=== PATIENT | female | born 1945 | race Caucasian/White ===

== ENCOUNTER 2016-04-19 20:22 | Emergency (ER) | payer MEDICAID ==
[~2016-04-19] VITALS: Ht 144.8 cm; Wt 55.5 kg
[~2016-04-19 20:22] MED LIST: ALBU8.5H3 INH; ASPI81TA50 PO; AZIT250T94 PO; BECL8.7A5 INH; CALC1TAB98 PO; CLON-379 PO; CLON0.2T5 PO; DILT240C80 PO; GLIP5TAB13 PO; HYD25 PO; IBUP800T25 PO; KETO10DR5; LOSA100T7 PO; MTF1000T PO; SITA50TA2 PO
[2016-04-19 21:37] VITALS: Ht 144.8 cm; Wt 55.5 kg
--- NOTE | 2016-04-19 22:59 | ERD ---
ER Documentation Chief Complaint Date/Time DATE: 04/19/16 TIME: 22:37 Chief Complaint Right great toe swelling. Ingrown toe HPI 71-year-old female presents with chief complaint of bilateral feet burning x weeks. In addition she complains of pain over her right big toe. States that she 's had an ingrown toenail in the past and was last removed 2 years ago. She denies any discharge, bleeding, fever, loss of sensation, and loss of range of motion. Patient states that she does have a history of type 2 diabetes mellitus , and is insulin-dependent. She takes her diabetes medications regularly and believes that her blood pressure is well-controlled. She denies any trauma or radiation of pain up her leg or back. ROS All systems reviewed and are negative except as per history of present illness. Medications Home Meds Active Scripts Albuterol Sulfate* (Proair HFA*) 8.5 Gm Hfa.aer.ad, 2 PUFF INH Q4, #1 INHALER Prov:CARLOS EDUARDO CLAYTON PA-C 04/30/15 Azithromycin* (Zithromax*) 250 Mg Tablet, 250 MG PO .ZPACK DIRECTED, #6 TAB TAKE 500 MG (2 TABS) THE FIRST DAY THEN 250 MG (1 TAB) DAYS 2-5 Prov:CARLOS EDUARDO CLAYTON PA-C 04/30/15 Reported Medications Diltiazem Hcl* (Tiazac) 240 Mg Capsule.sa, 240 MG PO DAILY, CAP 04/21/14 Beclomethasone Dip* (Qvar 80*) 7.3 Gm Inha, 2 PUFF INH BID, INH 04/21/14 Albuterol Sulfate* (Proair HFA*) 8.5 Gm Hfa.aer.ad, 2 PUFF INH EVERY 4-6 HOURS Y for WHEEZING AND SOB, INH 04/21/14 Metformin* (Glucophage*) 1,000 Mg Tablet, 1000 MG PO BID, TAB 04/21/14 Losartan Potassium* (Losartan Potassium*) 100 Mg Tablet, 100 MG PO DAILY, TAB 04/21/14 Sitagliptin* (Januvia*) 50 Mg Tablet, 50 MG PO DAILY, TAB 04/21/14 Ibuprofen* (Ibuprofen*) 800 Mg Tablet, 800 MG PO Q8, TAB 04/21/14 Hydrochlorothiazide* (Hydrochlorothiazide*) 25 Mg Tab, 25 MG PO DAILY, TAB 04/21/14 Glipizide* (Glipizide*) 5 Mg Tablet, 5 MG PO AC MEALS, TAB 04/21/14 Clonidine Hcl* (Clonidine Hcl*) 0.2 Mg Tablet, 0.2 MG PO BID, TAB 04/21/14 Clonidine Hcl* (Clonidine Hcl*) 0.1 Mg Tab, 0.1 MG PO WITH LUNCH, TAB 04/21/14 Calcium Carbonate-Vitamin D3 (Calcium + D 600 Tablet) 1 Tab Tablet, 1 TAB PO BID , TAB 04/21/14 Aspirin (Aspir-Low) 81 Mg Tablet.dr, 81 MG PO DAILY 04/21/14 Ketotifen Fumarate (Alaway) 10 Ml Drops, 1 DROP BID 04/21/14 Allergies Allergies: Coded Allergies: No Known Allergy (Unverified , 04/21/14) PMhx/Soc History of Surgery: Yes (CATARACTS) Anesthesia Reaction: No Hx Neurological Disorder: No Hx Respiratory Disorders: No Hx Cardiac Disorders: Yes (HTN, HYPERLIPIDEMIA) Hx Psychiatric Problems: No Hx Miscellaneous Medical Probl: Yes (DM) Hx Alcohol Use: No Hx Substance Use: No Hx Tobacco Use: No Physical Exam Vitals Vital Signs Date Time Temp Pulse Resp B/P Pulse Ox O2 Delivery O2 Flow Rate FiO2 04/19/16 21:37 98.1 76 18 166/76 97 Physical Exam GENERAL: Non-toxic. No apparent signs of distress. LUNGS: Clear to auscultation. No accessory muscle use. No wheezing, no crackles. No signs or symptoms of respiratory distress. HEART: Regular rate and rhythm. No murmurs, clicks, rubs or gallops. ABDOMEN: Soft, nontender and nondistended. Bowel sounds positive. No rebound or guarding. No gross peritoneal signs. No Hoyt or McBurney point tenderness. No gross masses. BACK: No midline tenderness, no costovertebral tenderness. EXTREMITIES: No peripheral cyanosis or edema. No obvious signs of trauma. Full range of motion. Good capillary refill. FEET: Right big toe is erythematous, warm to touch and tender. There is no area of fluctuance. Mild edema. No tracking up the foot/leg. Sensation and range of motion is intact. 2+ dorsalis pedis pulses bilaterally. Toes nails are yellow and thickened. There are several cracks and white crusting over her bilateral feet. No paronychia. No active discharge or bleeding. NEURO: The patient moves all 4 extremities with 5/5 strength. Cranial nerves are grossly intact. Normal mental status for age. Good muscle tone. SKIN: No petechiae or purpura. Good skin turgor. Procedures/MDM Patient presents of bilateral feet turning, as well as pain over the right big toe. On exam her right toe is slightly erythematous with mild edema and tender to palpation. Findings are consistent with cellulitis. In addition all of her toenails are thickened and yellow in appearance, likely due to onychomycosis. I explained to the patient that her symptoms are chronic in nature. Advised follow -up with her PCP to ensure that her blood sugars controlled it may be contributing to her exacerbation in neuropathy pain. Patient's currently not on gabapentin. In addition Onychomycosis is not well controlled with topical agents, she may need further management with oral terbinafine, however close follow-up and LFTs should be monitored while on this medication and cannot be prescribed from an ER. I suggested that she bring up these issues to her PCP. I told her that today would be addressing her localized pain over the right great toe which is likely due to cellulitis. I'll be prescribing both Keflex and Bactrim in addition I'll be giving the patient gabapentin for her neuropathy until she can get in to see her PCP. Additionally there are several areas of cracking and white excoriations of her bilateral feet which she states her pruritic, likely consistent with tinea pedis. I'll be giving the patient a prescription for Lotrimin 1%, I have advised her to keep feet dry. Avoid tight socks or shoes. There is no tracking of the cellulitis, patient is a 2 posterior cells pedis pulse, good capillary refill and I low suspicion for any neurovascular compromise. Patient is afebrile and in no acute distress. At this time I low suspicion for ulcer, abscess, necrotizing fasciitis, gangrene, and traumatic foot injury/fracture. Patient is stable for discharge and outpatient management. Advised to follow with PCP in one to 2 days. Departure Diagnosis: Primary Impression: Cellulitis, toe Additional Impressions: Tinea pedis Diabetic neuropathy Condition: Stable Samara Gutiérrez PA-C Apr 19, 2016 22:48
[2016-04-19] MEDS ORDERED: BACTDS PO (23:01)
[2016-04-19] MEDS ORDERED: GABA100C14 PO (23:01)
[2016-04-19] MEDS ORDERED: CLOT30CR24 TOP (23:01)
[2016-04-19] MEDS ORDERED: CEPH500C PO (23:01)
[2016-04-20] MEDS ORDERED: traMADol 50 MG TAB PO ONE (00:30)
== END 2016-04-20 00:13 | disposition home or self-care (01) ==
LOC: FTE 20:22
DX: L03.031 Cellulitis of right toe (principal); B35.3 Tinea pedis; E11.40 Type 2 diabetes mellitus with diabetic neuropathy, unspecified; I10 Essential (primary) hypertension; Z79.82 Long term (current) use of aspirin; Z79.84 Long term (current) use of oral hypoglycemic drugs
CPT/HCPCS: Z7502; Z7610; 99284

== ENCOUNTER 2016-06-25 15:48 | Emergency (ER) | payer MEDICAID ==
[~2016-06-25] VITALS: Ht 154.9 cm; Wt 56.6 kg
[~2016-06-25 15:48] MED LIST changes: +BACTDS PO; +CEPH500C PO; +CLOT30CR24 TOP; +GABA100C14 PO
[2016-06-25 15:53] VITALS: Ht 154.9 cm; Wt 56.6 kg
[2016-06-25] MEDS ORDERED: ONDANSETRON 4 MG INJ IV STA (16:48)
[2016-06-25] MEDS ORDERED: SOD CHLORIDE 0.9% 1,000 ML IV ONE (17:00)
[2016-06-25] MEDS ORDERED: FAMOTIDINE 20 MG TAB PO ONE (17:00)
[2016-06-25 17:22] LABS: ADD SCAN DIFF NO
[2016-06-25 17:25] LABS: BASOPHIL # 0.1 10^3/ul (0.0-0.1); BASOPHILS % 0.5 % (0.0-2.0); EOSINOPHILS # 0.1 10^3/ul (0.0-0.5); EOSINOPHILS % 0.8 % (0.0-7.0); HEMOGLOBIN 14.1 g/dl (12.0-16.0); LYMPHOCYTES # 2.6 10^3/ul (0.8-2.9); LYMPHOCYTES % 23.7 % (15.0-51.0); MEAN CORPUSCULAR HEMOGLOBIN 26.8 pg (29.0-33.0); MEAN CORPUSCULAR HGB CONC 32.8 g/dl (32.0-37.0); MEAN CORPUSCULAR VOLUME 81.6 fl (82.0-101.0); MEAN PLATELET VOLUME 10.6 fl (7.4-10.4); MONOCYTE # 0.7 10^3/ul (0.3-0.9); MONOCYTES % 6.1 % (0.0-11.0); NEUTROPHIL # 7.5 10^3/ul (1.6-7.5); NEUTROPHILS % 68.5 % (39.0-77.0); PLATELET COUNT 284 10^3/UL (140-415); RED BLOOD COUNT 5.27 10^6/ul (4.20-5.40); RED CELL DISTRIBUTION WIDTH 13.9 % (11.5-14.5)
[2016-06-25 17:28] LABS: ADD UMIC YES; URINE BILIRUBIN (Dip) NEGATIVE (NEGATIVE); URINE BLOOD (Dip) NEGATIVE (NEGATIVE); URINE COLOR LT. YELLOW (YELLOW); URINE KETONES (Dip) TRACE (NEGATIVE); URINE LEUKOCYTE ESTERASE (Dip) TRACE (NEGATIVE); URINE NITRITE (Dip) NEGATIVE (NEGATIVE); URINE TOTAL PROTEIN (Dip) TRACE (NEGATIVE); URINE UROBILINOGEN (Dip) 0.2 E.U./dL (0.1-1.0)
[2016-06-25 17:38] LABS: BACTERIA,URINE MANY; URINE RBCS 0-2 /HPF (0)
[2016-06-25 17:43] LABS: ALBUMIN 4.7 g/dl (3.3-4.9); CHLORIDE 98 mmol/L (97-110); SODIUM 139 mmol/L (135-144)
[2016-06-25 17:44] LABS: POTASSIUM 3.7 mmol/L (3.5-5.1)
[2016-06-25 17:45] LABS: CREATININE 0.53 mg/dl (0.44-1.00)
[2016-06-25 17:46] LABS: ALANINE AMINOTRANSFERASE 25 IU/L (13-69); ALKALINE PHOSPHATASE 109 IU/L (42-121); ANION GAP 19 (8-16); ASPARTATE AMINO TRANSFERASE 21 IU/L (15-46); BILIRUBIN,INDIRECT 0.2 mg/dl (0-1.1); BILIRUBIN,TOTAL 0.2 mg/dl (0.2-1.3); BLOOD UREA NITROGEN 18 mg/dl (7-20); CALCIUM 9.5 mg/dl (8.4-10.2); CARBON DIOXIDE 26 mmol/L (21-31); GLUCOSE 256 mg/dl (70-220); TOTAL PROTEIN 8.6 g/dl (6.1-8.1)
[2016-06-25 17:58] LABS: TROPONIN-I < 0.012 ng/ml (0.00-0.12)
[2016-06-25] MEDS ORDERED: DICLOFENAC SODIUM 37.5 MG/ML VIAL IV STA (18:17)
[2016-06-25] MEDS ORDERED: CEFTRIAXONE 1 GM/50 ML (PMX) 50 ML IVPB ONE ×2 (18:30→21:30)
[2016-06-25] MEDS ORDERED: DILT360C27 PO (18:59)
[2016-06-25] MEDS ORDERED: SITA100T8 PO (19:01)
[2016-06-25] MEDS ORDERED: BUS5 PO (19:01)
[2016-06-25] MEDS ORDERED: ACET500C3 PO (19:03)
--- NOTE | 2016-06-25 20:39 | RADRPT ---
PROCEDURE: CT abdomen and pelvis without contrast. CLINICAL INDICATION: Epigastric pain TECHNIQUE: CT scan of the abdomen and pelvis without contrast was performed on a multislice CT [facility] utilizing axial imaging from the lung bases through the pubis symphysis. The patient was scann ed without intravenous contrast. Sagittal and coronal reformatted images were made. The CTDIvol is 7.57 mGy and the DLP is 391.74 mGycm. One of the following 3 dose reduction techniques were used during this CT examination: automated exp osure control; adjustment of the mA and /or kV according to patient size; or use of iterative recons truciton technique. COMPARISON: 04/21/2014 CT abdomen and pelvis FINDINGS: The lung bases are clear. The visualized heart size is remarkable for mild cardiomegaly. Mild vascu lar calcifications are present of the aorta and the coronary arteries. No pericardial or pleural ef fusion is present. A small hiatal hernia is present. Gallbladder debris is present in a distended gallbladder without e vidence for gallbladder wall thickening or pericholecystic fluid. The visualized liver, spleen, panc reas, and bilateral adrenal glands are normal. The bilateral kidneys are normal. No evidence for h ydroureter nephrosis is present. The aorta demonstrates mild vascular calcifications without aneurysmal dilatation. The visualized bowel is remarkable for diverticulosis without definite evidence for acute diverticul itis or appendicitis. No evidence for ascites or pneumoperitoneum is present. The visualized urinary bladder is well distended. The uterus demonstrates mild dystrophic calcifica tions and appears otherwise normal. The bilateral adnexa and pelvis are normal without evidence for masses, ascites or pneumoperitoneum. The imaged osseous structures demonstrates mild bilateral sacroiliac joint disease with degenerative disease of the imaged spine. Generalized osteopenia is also noted. IMPRESSION: 1. Small hiatal hernia. 2. Gallbladder debris and possible cholelithiasis without evidence for acute cholecystitis. 3. Mild atherosclerotic vascular disease and cardiomegaly 4. Mild diverticulosis without evidence for acute diverticulitis or appendicitis. 5. Degenerative changes the bilateral sacroiliac joints and the imaged spine with generalized osteo penia. RPTAT: [facility] .Venita Barrera MD, Date Time Electronically viewed and signed by .Venita Barrera MD, on 06/25/2016 20:38 .C/
[2016-06-25] MEDS ORDERED: NITR-58 PO (22:18)
[2016-06-25] MEDS ORDERED: CIPR500S2 PO (22:22)
[2016-06-25] MEDS ORDERED: ONDA4TAB14 PO (22:22)
[2016-06-25] MEDS ORDERED: NAPR-688 PO (22:22)
[2016-06-25] MEDS ORDERED: HYDR-906 PO (22:22)
[2016-06-25 22:38] VITALS: BP 150/86; PULSE 88; RESP 16; TEMP 97.9
--- NOTE | 2016-06-25 22:45 | ERD ---
ER Documentation Chief Complaint Date/Time DATE: 06/25/16 TIME: 22:39 Chief Complaint vomiting since yesterday, diabetic HPI This 71-year-old female comes in for nausea and vomiting that began yesterday. Vomit is nonbloody and nonbilious and she's had 3 episodes of vomiting today. She also occasionally has read a precaution abdominal pain that she has some lower suprapubic abdominal pain today. Denies diarrhea or constipation. She had no fevers or chills. Denies flank pain. ROS All systems reviewed and are negative except as per history of present illness. Medications Home Meds Active Scripts Ciprofloxacin (Ciprofloxacin) 500 Mg/5 Ml [facility]..rec, 500 MG PO BID, #14 TAB Prov:IGNACIA GUILLERMO 06/25/16 Ondansetron (Ondansetron Odt) 4 Mg Tab.rapdis, 4 MG PO Q6H Y for NAUSEA AND/OR VOMITING, #10 TAB Prov:EAGLEIGNACIA 06/25/16 Hydrocodone/Acetaminophen ([place] 5-325 Tablet) 1 Each Tablet, 1 EACH PO Q6, #14 TAB Prov:IGNACIA GUILLERMO 06/25/16 Naproxen* (Naproxen*) 500 Mg Tablet, 500 MG PO BID Y for PAIN, #20 TAB Prov:IGNACIA GUILLERMO 06/25/16 Nitrofurantoin Monohyd Macrocr* (Macrobid*) 100 Mg Capsr, 100 MG PO BID, #10 CAP Prov:EAGLEIGNACIA 06/25/16 Gabapentin* (Gabapentin*) 100 Mg Capsule, 100 MG PO TID for 30 Days, #90 CAP Prov:Samara Gutiérrez PA-C 04/19/16 Clotrimazole* (Clotrimazole* AF) 1% - 30 Gm Cream.gm., 1 APPLIC TOP BID for 7 Days, TUB Prov:Samara Gutiérrez PA-C 04/19/16 Reported Medications Acetaminophen (Mapap) 500 Mg Capsule, 500 MG PO Q4H Y for PAIN, CAP 06/25/16 Buspirone Hcl* (Buspar*) 5 Mg Tab, 5 MG PO BID, TAB 06/25/16 Sitagliptin* (Januvia*) 100 Mg Tablet, 100 MG PO DAILY, #30 TAB 06/25/16 Diltiazem Hcl* (Tiazac) 360 Mg Capsule.sa, 360 MG PO DAILY, #30 CAP 06/25/16 Beclomethasone Dip* (Qvar 80*) 7.3 Gm Inha, 2 PUFF INH BID, INH 04/21/14 Metformin* (Glucophage*) 1,000 Mg Tablet, 1000 MG PO BID, TAB 04/21/14 Losartan Potassium* (Losartan Potassium*) 100 Mg Tablet, 100 MG PO DAILY, TAB 04/21/14 Ibuprofen* (Ibuprofen*) 800 Mg Tablet, 800 MG PO Q8, TAB 04/21/14 Hydrochlorothiazide* (Hydrochlorothiazide*) 25 Mg Tab, 25 MG PO DAILY, TAB 04/21/14 Glipizide* (Glipizide*) 5 Mg Tablet, 5 MG PO AC MEALS, TAB 04/21/14 Clonidine Hcl* (Clonidine Hcl*) 0.2 Mg Tablet, 0.2 MG PO BID, TAB 04/21/14 Calcium Carbonate-Vitamin D3 (Calcium + D 600 Tablet) 1 Tab Tablet, 1 TAB PO BID , TAB 04/21/14 Aspirin (Aspir-Low) 81 Mg Tablet.dr, 81 MG PO DAILY 04/21/14 Ketotifen Fumarate (Alaway) 10 Ml Drops, 1 DROP BID 04/21/14 Discontinued Reported Medications Diltiazem Hcl* (Tiazac) 240 Mg Capsule.sa, 240 MG PO DAILY, CAP 04/21/14 Albuterol Sulfate* (Proair HFA*) 8.5 Gm Hfa.aer.ad, 2 PUFF INH EVERY 4-6 HOURS Y for WHEEZING AND SOB, INH 04/21/14 Sitagliptin* (Januvia*) 50 Mg Tablet, 50 MG PO DAILY, TAB 04/21/14 Clonidine Hcl* (Clonidine Hcl*) 0.1 Mg Tab, 0.1 MG PO WITH LUNCH, TAB 04/21/14 Discontinued Scripts Sulfamethoxazole-Trimethoprim* (Bactrim* DS) 800-160 Mg Tab, 1 TAB PO BID for 7 Days, #14 TAB Prov:Samara Gutiérrez PA-C 04/19/16 Cephalexin* (Cephalexin*) 500 Mg Capsule, 500 MG PO Q6 for 7 Days, #28 CAP Prov:Samara Gutiérrez PA-C 04/19/16 Albuterol Sulfate* (Proair HFA*) 8.5 Gm Hfa.aer.ad, 2 PUFF INH Q4, #1 INHALER Prov:CARLOS EDUARDO CLAYTON PA-C 04/30/15 Azithromycin* (Zithromax*) 250 Mg Tablet, 250 MG PO .ZPACK DIRECTED, #6 TAB TAKE 500 MG (2 TABS) THE FIRST DAY THEN 250 MG (1 TAB) DAYS 2-5 Prov:CARLOS EDUARDO CLAYTON PA-C 04/30/15 Allergies Allergies: Coded Allergies: No Known Allergy (Unverified , 06/25/16) PMhx/Soc History of Surgery: Yes (CATARACTS) Anesthesia Reaction: No Hx Neurological Disorder: No Hx Respiratory Disorders: No Hx Cardiac Disorders: Yes (HTN, HYPERLIPIDEMIA) Hx Psychiatric Problems: No Hx Miscellaneous Medical Probl: Yes (DM) Hx Alcohol Use: No Hx Substance Use: No Hx Tobacco Use: No Smoking Status: Never smoker Physical Exam Vitals Vital Signs Date Time Temp Pulse Resp B/P Pulse Ox O2 Delivery O2 Flow Rate FiO2 06/25/16 20:43 97 20 163/93 98 Room Air 06/25/16 15:53 97.5 106 20 145/84 99 Physical Exam Const: [] No distress, smiling and pleasant Head: Atraumatic Eyes: Normal Conjunctiva ENT: Normal External Ears, Nose and Mouth. Neck: Full range of motion..~ No meningismus. Resp: Clear to auscultation bilaterally Cardio: Regular rate and rhythm, no murmurs Abd: Soft, mild surrounding tenderness and mild upper quadrant tenderness without guarding or rebound, non distended. Normal bowel sounds Skin: No petechiae or rashes Back: No midline or flank tenderness Ext: No cyanosis, or edema Neur: Awake and alert and oriented 3, no focal deficits Psych: Normal Mood and Affect Result Diagram: 06/25/16 1720 06/25/16 1720 Results 24 hrs Laboratory Tests Test 06/25/16 17:05 06/25/16 17:20 Urine Color LT. YELLOW Urine Clarity CLOUDY Urine pH 6.5 Urine Specific [place] 1.020 Urine Ketones TRACE Urine Nitrite NEGATIVE Urine Bilirubin NEGATIVE Urine Urobilinogen 0.2 E.U./dL Urine Leukocyte Esterase TRACE Urine Microscopic RBC 0-2/HPF Urine Microscopic WBC 5-10/HPF Urine Epithelial Cells FEW Urine Bacteria MANY Urine Hemoglobin NEGATIVE Urine Glucose 0.5%% Urine Total Protein TRACE White Blood Count 11.010^3/ul Red Blood Count 5.2710^6/ul Hemoglobin 14.1g/dl Hematocrit 43.0% Mean Corpuscular Volume 81.6fl Mean Corpuscular Hemoglobin 26.8pg Mean Corpuscular Hemoglobin Concent 32.8g/dl Red Cell Distribution Width 13.9% Platelet Count 33832^3/UL Mean Platelet Volume 10.6fl Neutrophils % 68.5% Lymphocytes % 23.7% Monocytes % 6.1% Eosinophils % 0.8% Basophils % 0.5% Nucleated Red Blood Cells % 0.0/100WBC Neutrophils # 7.510^3/ul Lymphocytes # 2.610^3/ul Monocytes # 0.710^3/ul Eosinophils # 0.110^3/ul Basophils # 0.110^3/ul Nucleated Red Blood Cells # 0.010^3/ul Sodium Level 139mmol/L Potassium Level 3.7mmol/L Chloride Level 98mmol/L Carbon Dioxide Level 26mmol/L Anion Gap 19 Blood Urea Nitrogen 18mg/dl Creatinine 0.53mg/dl Glucose Level 256mg/dl Calcium Level 9.5mg/dl Total Bilirubin 0.2mg/dl Direct Bilirubin 0.00mg/dl Indirect Bilirubin 0.2mg/dl Aspartate Amino Transf (AST/SGOT) 21IU/L Alanine Aminotransferase (ALT/SGPT) 25IU/L Alkaline Phosphatase 109IU/L Troponin I < 0.012ng/ml Total Protein 8.6g/dl Albumin 4.7g/dl Globulin 3.90g/dl Albumin/Globulin Ratio 1.20 Lipase 33U/L Current Medications Medications (Trade) Dose Ordered Sig/Supriya Route PRN Reason Start Time Stop Time Status Last Admin Dose Admin Sodium Chloride (NS) 1,000 ml @ 1,000 mls/hr Q1H ONCE IV 06/25/16 17:00 06/25/16 17:59 DC 06/25/16 17:16 Ondansetron HCl (Zofran Inj) 4 mg ONCE STAT IV 06/25/16 16:48 06/25/16 16:55 DC 06/25/16 17:16 Famotidine 20 mg 20 mg ONCE ONCE PO 06/25/16 17:00 06/25/16 17:01 DC 06/25/16 17:16 Ceftriaxone Sodium (Rocephin) 50 ml @ 100 mls/hr ONCE ONCE IVPB 06/25/16 18:30 06/25/16 18:59 DC 06/25/16 18:53 Diclofenac Sodium 37.5 mg 37.5 mg ONCE STAT IV 06/25/16 18:17 06/25/16 18:18 DC Ceftriaxone Sodium (Rocephin) 50 ml @ 100 mls/hr ONCE ONCE IVPB 06/25/16 21:30 06/25/16 21:59 DC Procedures/MDM Complicated UTI and biliary colic and elderly female. She was hydrated with normal saline given gram of Rocephin in the emergency room to accelerate the treatment of her UTI. Colic and UTI for advanced age and vomiting. EKG and troponin were obtained for vomiting in an elderly patient with risk factors. Negative troponin EKG with mild evidence for possible ischemia. Recommending primary care follow-up for echocardiogram and etiology consult. No evidence of pyelonephritis patient has no flank pain. Also has biliary colic and she was not aware that she had gallstones. Pain was relieved in the emergency room with anti-inflammatory IV pain medication. Nausea is resolved with Zofran. She had hyperglycemia likely exacerbated by her infection and was treated with normal saline for that as well. No evidence for acute cholecystitis. I'm going to discharge her with [place] for severe pain, naproxen for moderate pain, Zofran for nausea, also discharging with ciprofloxacin for 7 days for, complicated UTI. CT abdomen and pelvis interpretation: Gallstones without evidence for acute cholecystitis, small hiatal hernia, no obstruction, no free air, no fractures. EKG interpretation: Normal sinus rhythm rate of 93, normal axis, slight T-wave inversions in anterior leads, normal intervals. Departure Diagnosis: Primary Impression: Biliary colic Additional Impressions: Complicated UTI (urinary tract infection) Hyperglycemia due to type 2 diabetes mellitus Condition: Stable Patient Instructions: Understanding Urinary Tract Infections (UTIs), Biliary Colic With Gallstone (Confirmed) Additional Instructions: Llame al doctor MAANA y wan marino MYNOR PARA DENTRO DE 2-3 COOLEY. Consigue un referral para un General Surgeon. Dgale a la secretaria que nosotros le instruimos hacer esta mynor.Avise o llame si chen condicin se empeora antes de la mynor. Regresa aqui si peor o no mejor. IGNACIA GUILLERMO DO Jun 25, 2016 22:45
== END 2016-06-25 22:39 | disposition home or self-care (01) ==
LOC: E/R 15:48
DX: K80.50 Calculus of bile duct without cholangitis or cholecystitis without obstruction (principal); N39.0 Urinary tract infection, site not specified; E11.65 Type 2 diabetes mellitus with hyperglycemia; I10 Essential (primary) hypertension; Z79.82 Long term (current) use of aspirin; Z79.84 Long term (current) use of oral hypoglycemic drugs
CPT/HCPCS: 36415; 74176; 80053; 81001; 83690; 84484; 85025; 93005; 96374; 96375; J0696; J2405; J7030; Z7502; Z7610; 81003

== ENCOUNTER 2016-12-20 20:34 | Emergency (ER) | payer MEDICAID ==
[~2016-12-20] VITALS: Ht 157.5 cm; Wt 52.0 kg
[~2016-12-20 20:34] MED LIST changes: +ACET500C3 PO; -ALBU8.5H3 INH; -AZIT250T94 PO; -BACTDS PO; +BUS5 PO; -CEPH500C PO; +CIPR500S2 PO; -CLON-379 PO; -DILT240C80 PO; +DILT360C27 PO; -HYD25 PO; +HYDR-906 PO; +HYDR25TA6 PO; +NAPR-688 PO; +NITR-58 PO; +ONDA4TAB14 PO; +SITA100T8 PO; -SITA50TA2 PO
[2016-12-20 20:51] VITALS: Ht 157.5 cm; Wt 52.0 kg
[2016-12-20 23:00] VITALS: TEMP 98.3
--- NOTE | 2016-12-20 23:14 | ERA ---
ER Documentation Chief Complaint Date/Time DATE: 12/20/16 TIME: 23:14 Chief Complaint Pt reports dizziness with head movement for 3 days HPI The patient is a 71-year-old female, presenting with acute dizziness with head movement for the last 3 days intermittently, feels as if the room is spinning. She denies similar symptoms previously, denies syncope, near syncope, neck pain , chest pain, abdominal pain, vomiting, dysuria, diarrhea. She does not smoke nor drink Past medical history: Diabetes mellitus, hypertension, cholelithiasis Past surgical history: Hysterectomy ROS All systems reviewed and are negative except as per history of present illness. Medications Home Meds Active Scripts Meclizine Hcl* (Antivert*) 12.5 Mg Tab, 25 MG PO Q6H Y for DIZZINESS, #20 TAB Prov:CORIN BOONE MD 12/21/16 Ciprofloxacin (Ciprofloxacin) 500 Mg/5 Ml Carol..rec, 500 MG PO BID, #14 TAB Prov:EAGLEIGNACIA DO 06/25/16 Ondansetron (Ondansetron Odt) 4 Mg Tab.rapdis, 4 MG PO Q6H Y for NAUSEA AND/OR VOMITING, #10 TAB Prov:EAGLEIGNACIA DO 06/25/16 Hydrocodone/Acetaminophen ([place] 5-325 Tablet) 1 Each Tablet, 1 EACH PO Q6, #14 TAB Prov:EAGLEIGNACIA DO 06/25/16 Naproxen* (Naproxen*) 500 Mg Tablet, 500 MG PO BID Y for PAIN, #20 TAB Prov:EAGLEIGNACIA DO 06/25/16 Nitrofurantoin Monohyd Macrocr* (Macrobid*) 100 Mg Capsr, 100 MG PO BID, #10 CAP Prov:EAGLEIGNACIA DO 06/25/16 Gabapentin* (Gabapentin*) 100 Mg Capsule, 100 MG PO TID for 30 Days, #90 CAP Prov:Samara Gutiérrez PA-C 04/19/16 Clotrimazole* (Clotrimazole* AF) 1% - 30 Gm Cream.gm., 1 APPLIC TOP BID for 7 Days, TUB Prov:Samara Gutiérrez PA-C 04/19/16 Reported Medications Acetaminophen (Mapap) 500 Mg Capsule, 500 MG PO Q4H Y for PAIN, CAP 4/17/17 Buspirone Hcl* (Buspar*) 5 Mg Tab, 5 MG PO BID, TAB 06/25/16 Sitagliptin* (Januvia*) 100 Mg Tablet, 100 MG PO DAILY, #30 TAB 06/25/16 Diltiazem Hcl* (Tiazac) 360 Mg Capsule.sa, 360 MG PO DAILY, #30 CAP 06/25/16 Beclomethasone Dip* (Qvar 80*) 7.3 Gm Inha, 2 PUFF INH BID, INH 04/21/14 Metformin* (Glucophage*) 1,000 Mg Tablet, 1000 MG PO BID, TAB 04/21/14 Losartan Potassium* (Losartan Potassium*) 100 Mg Tablet, 100 MG PO DAILY, TAB 04/21/14 Ibuprofen* (Ibuprofen*) 800 Mg Tablet, 800 MG PO Q8, TAB 04/21/14 Hydrochlorothiazide* (Hydrochlorothiazide*) 25 Mg Tab, 25 MG PO DAILY, TAB 04/21/14 Glipizide* (Glipizide*) 5 Mg Tablet, 5 MG PO AC MEALS, TAB 04/21/14 Clonidine Hcl* (Clonidine Hcl*) 0.2 Mg Tablet, 0.2 MG PO BID, TAB 04/21/14 Calcium Carbonate-Vitamin D3 (Calcium + D 600 Tablet) 1 Tab Tablet, 1 TAB PO BID , TAB 04/21/14 Aspirin (Aspir-Low) 81 Mg Tablet.dr, 81 MG PO DAILY 04/21/14 Ketotifen Fumarate (Alaway) 10 Ml Drops, 1 DROP BID 04/21/14 Allergies Allergies: Coded Allergies: No Known Allergy (Unverified , 06/25/16) PMhx/Soc History of Surgery: Yes (CATARACTS) Anesthesia Reaction: No Hx Neurological Disorder: No Hx Respiratory Disorders: No Hx Cardiac Disorders: Yes (HTN, HYPERLIPIDEMIA) Hx Psychiatric Problems: No Hx Miscellaneous Medical Probl: Yes (DM) Hx Alcohol Use: No Hx Substance Use: No Hx Tobacco Use: No Smoking Status: Never smoker Physical Exam Vitals Vital Signs Date Time Temp Pulse Resp B/P Pulse Ox O2 Delivery O2 Flow Rate FiO2 12/21/16 02:27 78 22 165/98 95 Room Air 12/21/16 01:00 88 18 175/90 97 Room Air 12/21/16 00:00 93 20 163/96 99 Room Air 12/20/16 23:00 98.3 93 20 188/84 99 Room Air 12/20/16 20:51 98.1 87 16 188/84 97 Physical Exam Const: No acute distress. Head: Atraumatic. Eyes: Normal Conjunctiva. ENT: Normal External Ears, Nose and Mouth. Neck: Full range of motion. No meningismus. Resp: Clear to auscultation bilaterally. Cardio: Regular rate and rhythm. Abd: Soft, non distended, normal bowel sounds, non tender. Skin: No petechiae or rashes. Back: No midline or flank tenderness. Ext: No cyanosis, or edema. Neur: Awake and alert. No focal deficit Psych: Normal Mood and Affect. Result Diagram: 12/20/16232912/20/162329 Results 24 hrs Laboratory Tests Test 12/20/16 23:30 12/21/16 00:55 White Blood Count 7.010^3/ul Red Blood Count 4.9010^6/ul Hemoglobin 12.7g/dl Hematocrit 39.6% Mean Corpuscular Volume 80.8fl Mean Corpuscular Hemoglobin 25.9pg Mean Corpuscular Hemoglobin Concent 32.1g/dl Red Cell Distribution Width 13.3% Platelet Count 07410^3/UL Mean Platelet Volume 11.0fl Neutrophils % 38.8% Lymphocytes % 48.1% Monocytes % 6.1% Eosinophils % 5.6% Basophils % 1.1% Nucleated Red Blood Cells % 0.0/100WBC Neutrophils # 2.710^3/ul Lymphocytes # 3.410^3/ul Monocytes # 0.410^3/ul Eosinophils # 0.410^3/ul Basophils # 0.110^3/ul Nucleated Red Blood Cells # 0.010^3/ul Prothrombin Time 13.7Sec Prothrombin Time Ratio 1.1 INR International Normalized Ratio 1.05 Activated Partial Thromboplast Time 28.0Sec Sodium Level 137mmol/L Potassium Level 3.6mmol/L Chloride Level 102mmol/L Carbon Dioxide Level 25mmol/L Anion Gap 14 Blood Urea Nitrogen 14mg/dl Creatinine 0.55mg/dl Glucose Level 231mg/dl Calcium Level 9.5mg/dl Bedside Glucose 249mg/dL Current Medications Medications (Trade) Dose Ordered Sig/Supriya Route PRN Reason Start Time Stop Time Status Last Admin Dose Admin Meclizine HCl (Antivert) 25 mg ONCE ONCE PO 12/21/16 00:00 12/21/16 00:01 DC 12/20/16 23:52 Procedures/MDM [place] [id number] Radiology Main Line: [phone] DIAGNOSTIC IMAGING REPORT Patient: IVONE GOFF : 1945 Age: 71 Sex: F MR #: [id number] DOS: 12/20/16 2343 Ordering MD: CORIN BOONE MD Location: E/R Room/Bed: PROCEDURE: CT head, without contrast. CLINICAL INDICATION: Patient experiencing a headache. TECHNIQUE: Noncontrast CT examination of the head, with axial, sagittal and coronal reformatted images. Automated dose exposure control was employed. CTDI: 45.01 and DLP: 720.23. COMPARISON: CT head dated 04/30/2015. FINDINGS: No acute hemorrhage. Subarachnoid spaces are substantially preserved and symmetric. Ventricles are unremarkable. 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 No mass effect. Castillo-white matter distinction is preserved without evident decreased attenuation to suggest acute or recent infarct. Sinuses and osseous structures are unremarkable. IMPRESSION: 1. Interval likely remote infarct in the warren. 2. Otherwise, no acute process in the head. RPTAT: [facility] Physician Kevin Date Time Electronically viewed and signed by Physician Kevin on 12/21/2016 01:58 RS/ CC: CORIN BOONE MD EKG: Read by emergency physician Rate/Rhythm: Normal Sinus Rhythm 92 beats/min QRS, ST, T-waves: No ST elevation, no T inversion, PVC Impression: Abnormal EKG MEDICAL MAKING DECISION: The patient is a 71-year-old female, presenting with acute dizziness of unclear etiology most likely benign positional vertigo. She was treated with Antivert 25 mg p.o. for dizziness with good response The differential diagnoses considered include but are not limited to central causes such as cerebellar infarct, cerebellar hemorrhage, cerebellar tumor, acoustic neuroma, peripheral causes such as benign positional vertigo, labyrinthitis, medication, Meniere's disease. Departure Diagnosis: Primary Impression: Dizziness Condition: Good Comments She was discharged with Antivert I discussed the findings with the patient. I advised the patient to follow-up with the primary physician in about 1-2 days, sooner if needed and return if any concern. CORIN BOONE MD Dec 20, 2016 23:14
[2016-12-20 23:59] LABS: BASOPHIL # 0.1 10^3/ul (0.0-0.1); BASOPHILS % 1.1 % (0.0-2.0); EOSINOPHILS # 0.4 10^3/ul (0.0-0.5); EOSINOPHILS % 5.6 % (0.0-7.0); HEMATOCRIT 39.6 % (37.0-47.0); HEMOGLOBIN 12.7 g/dl (12.0-16.0); LYMPHOCYTES # 3.4 10^3/ul (0.8-2.9); LYMPHOCYTES % 48.1 % (15.0-51.0); MEAN CORPUSCULAR HEMOGLOBIN 25.9 pg (29.0-33.0); MEAN CORPUSCULAR HGB CONC 32.1 g/dl (32.0-37.0); MEAN CORPUSCULAR VOLUME 80.8 fl (82.0-101.0); MONOCYTE # 0.4 10^3/ul (0.3-0.9); MONOCYTES % 6.1 % (0.0-11.0); NEUTROPHIL # 2.7 10^3/ul (1.6-7.5); NEUTROPHILS % 38.8 % (39.0-77.0); PLATELET COUNT 240 10^3/UL (140-415); RED CELL DISTRIBUTION WIDTH 13.3 % (11.5-14.5)
[2016-12-21] MEDS ORDERED: MECLIZINE 12.5 MG TAB PO ONE
[2016-12-21 00:06] LABS: CALCIUM 9.5 mg/dl (8.4-10.2); CREATININE 0.55 mg/dl (0.44-1.00); POTASSIUM 3.6 mmol/L (3.5-5.1)
[2016-12-21 00:19] LABS: INR 1.05; PROTIME 13.7 Sec (12.2-14.2); PT RATIO 1.1
--- NOTE | 2016-12-21 01:58 | RADRPT ---
PROCEDURE: CT head, without contrast. CLINICAL INDICATION: Patient experiencing a headache. TECHNIQUE: Noncontrast CT examination of the head, with axial, sagittal and coronal reformatted im ages. Automated dose exposure control was employed. CTDI: 45.01 and DLP: 720.23. COMPARISON: CT head dated 04/30/2015. FINDINGS: No acute hemorrhage. Subarachnoid spaces are substantially preserved and symmetric. Ventricles ar e unremarkable. 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 No mass effect. Castillo-white matter distinction is preserved without evident decreased attenuation t o suggest acute or recent infarct. Sinuses and osseous structures are unremarkable. IMPRESSION: 1. Interval likely remote infarct in the warren. 2. Otherwise, no acute process in the head. RPTAT: [facility] Physician Kevin Date Time Electronically viewed and signed by Physician Kevin on 12/21/2016 01:58 RS/
[2016-12-21] MEDS ORDERED: MECL12.574 PO (02:11)
[2016-12-21 02:27] VITALS: BP 165/98; PULSE 78; RESP 22
== END 2016-12-21 02:21 | disposition home or self-care (01) ==
LOC: E/R 20:34
DX: R42 Dizziness and giddiness (principal); I10 Essential (primary) hypertension; E11.9 Type 2 diabetes mellitus without complications; R07.9 Chest pain, unspecified; Z79.84 Long term (current) use of oral hypoglycemic drugs; Z79.82 Long term (current) use of aspirin
CPT/HCPCS: 36415; 70450; 80048; 82962; 85025; 85610; 85730; 93005; Z7502; Z7610

== ENCOUNTER 2017-06-21 02:50 | Inpatient (IN) | END 2017-06-22 13:06 | disposition home or self-care (01) | DRG 281 ==

== ENCOUNTER 2018-03-20 18:49 | Inpatient (IN) | payer BC, MEDICAID ==
[~2018-03-20] VITALS: Ht 152.4 cm; Wt 51.8 kg
[~2018-03-20 18:49] MED LIST changes: +ATOR40TA68 PO; -CIPR500S2 PO; -CLON0.2T5 PO; -CLOT30CR24 TOP; -DILT360C27 PO; +HYDR-4011 PO; -HYDR-906 PO; -HYDR25TA6 PO; -IBUP800T25 PO; +LOSA100T15 PO; -LOSA100T7 PO; +METO-448 PO; -NAPR-688 PO; -NITR-58 PO; +NITR0.4T32 SL; -ONDA4TAB14 PO; +SITA100T11 PO; -SITA100T8 PO
[2018-03-20] MEDS ORDERED: ASPIRIN 325 MG TAB PO STA (21:42)
[2018-03-20] MEDS ORDERED: ONDANSETRON 4 MG TAB PO PRN (23:00)
[2018-03-20] MEDS ORDERED: NITROGLYCERIN (SL) 0.4 MG TAB SL PRN (23:00)
[2018-03-20] MEDS ORDERED: DOCUSATE SODIUM 100 MG CAP PO PRN (23:00)
[2018-03-20] MEDS ORDERED: NACL 0.9% 3 ML SYG IV SCH (23:00)
[2018-03-20] MEDS ORDERED: BISACODYL (EC) 5 MG TAB PO PRN (23:00)
[2018-03-20] MEDS ORDERED: ONDANSETRON 4 MG INJ IV PRN (23:00)
[2018-03-20] MEDS ORDERED: ACETAMINOPHEN 325 MG TAB PO PRN (23:00)
--- NOTE | 2018-03-20 23:00 | ERD ---
ER Documentation Chief Complaint Chief Complaint R FOOT PAIN/ DISCOLORATION X'S 5 DAYS HPI During the patient's encounter translation services were utilized Language: [Chinese] Source: [in person] 73-year-old female history of diabetes who presents with multiple complaints. The first complaint is chest pain. Over the last several weeks she has had exertional chest discomfort that is alleviated by rest. She has a history of prior cardiac disease with possible stent. Second complaint is bilateral foot pain right greater than left. This is also subacute for several weeks if not months. Patient denies any fevers or chills or spreading redness. She notes discoloration bilaterally. ROS All systems reviewed and are negative except as per history of present illness. Medications Home Meds Active Scripts Nitroglycerin* (Nitroglycerin* SL) 0.4 Mg Tab.subl, 1 TAB SL Q5M PRN for ANGINA, #1 BOT Prov:JERICA BEE V. MDS COORDINATOR 06/22/17 Metoprolol Tartrate* (Lopressor*) 25 Mg Tab, 25 MG PO BID, #60 TAB Prov:JERICA BEE V. MDS COORDINATOR 06/22/17 Atorvastatin* (Atorvastatin*) 40 Mg Tablet, 40 MG PO DAILY@21, #30 TAB Prov:BEELIAMA V. MDS COORDINATOR 06/22/17 Losartan Potassium* (Losartan Potassium*) 100 Mg Tablet, 100 MG PO DAILY, #30 TAB Prov:BEEJERICA V. MDS COORDINATOR 06/22/17 Glipizide* (Glipizide*) 5 Mg Tablet, 5 MG PO AC BREAKFAST, #30 TAB Prov:BEEJERICA V. MDS COORDINATOR 06/22/17 Aspirin (Aspir-Low) 81 Mg Tablet.dr, 81 MG PO DAILY, #30 TAB Prov:BEEJERICA V. MDS COORDINATOR 06/22/17 Hydrocodone/Acetaminophen ([place] 5-325 Tablet) 1 Each Tablet, 1 EACH PO Q6, #14 TAB Prov:IGNACIA GUILLERMO DO 06/25/16 Gabapentin* (Gabapentin*) 100 Mg Capsule, 100 MG PO TID for 30 Days, #90 CAP Prov:Samara Gutiérrez PA-C 04/19/16 Reported Medications Acetaminophen (Mapap) 500 Mg Capsule, 500 MG PO Q4H PRN for PAIN, CAP 06/25/16 Buspirone Hcl* (Buspar*) 5 Mg Tab, 5 MG PO BID, TAB 06/25/16 Sitagliptin* (Januvia*) 100 Mg Tablet, 100 MG PO DAILY, #30 TAB 06/25/16 Beclomethasone Dip* (Qvar 80*) 7.3 Gm Inha, 2 PUFF INH BID, INH 04/21/14 Metformin* (Glucophage*) 1,000 Mg Tablet, 1000 MG PO BID, TAB 04/21/14 Calcium Carbonate-Vitamin D3 (Calcium + D 600 Tablet) 1 Tab Tablet, 1 TAB PO BID, TAB 04/21/14 Ketotifen Fumarate (Alaway) 10 Ml Drops, 1 DROP BID 04/21/14 Allergies Allergies: Coded Allergies: No Known Allergy (Unverified , 06/25/16) PMhx/Soc History of Surgery: Yes (heart) Anesthesia Reaction: No Hx Neurological Disorder: No Hx Respiratory Disorders: No Hx Cardiac Disorders: Yes (htn, hld) Hx Psychiatric Problems: No Hx Miscellaneous Medical Probl: Yes (dm) Hx Alcohol Use: No Hx Substance Use: No Hx Tobacco Use: No Smoking Status: Never smoker FmHx Family History: diabetes Physical Exam Vitals Vital Signs Date Temp Pulse Resp B/P (MAP) Pulse Ox O2 O2 Flow FiO2 Time Delivery Rate 03/20/18 98.0 88 18 178/86 98 19:03 (116) Physical Exam General: Well developed, well nourished, no acute distress Head: Normocephalic, atraumatic. Eyes: Pupils equally reactive, EOM intact ENT: Moist mucous membranes Neck: Supple, no lymphadenopathy Respiratory: Lungs clear bilaterally, no distress Cardiovascular: RRR, no murmurs, rubs, or gallops Abdominal: Soft, non-tender, non-distended, no peritoneal signs : Deferred MSK: bilateral feet has of evidence of discoloration likely secondary to chronic venous stasis dermatitis. The patient has slightly decreased pulses bilaterally likely consistent with peripheral arterial disease. Neurologic: Alert and oriented, moving all extremities, normal speech, no focal weakness, no cerebellar signs Skin: No rash Psych: Normal mood Result Diagram: 03/20/18215303/20/182153 Results 24 hrs Laboratory Tests Test 03/20/18 21:54 White Blood Count 10.2 10^3/ul Red Blood Count 4.67 10^6/ul Hemoglobin 12.2 g/dl Hematocrit 37.3 % Mean Corpuscular Volume 79.9 fl Mean Corpuscular Hemoglobin 26.1 pg Mean Corpuscular Hemoglobin Concent 32.7 g/dl Red Cell Distribution Width 13.3 % Platelet Count 311 10^3/UL Mean Platelet Volume 11.0 fl Immature Granulocytes % 0.300 % Neutrophils % 57.5 % Lymphocytes % 31.0 % Monocytes % 5.7 % Eosinophils % 4.7 % Basophils % 0.8 % Nucleated Red Blood Cells % 0.0 /100WBC Immature Granulocytes # 0.030 10^3/ul Neutrophils # 5.9 10^3/ul Lymphocytes # 3.2 10^3/ul Monocytes # 0.6 10^3/ul Eosinophils # 0.5 10^3/ul Basophils # 0.1 10^3/ul Nucleated Red Blood Cells # 0.0 10^3/ul Prothrombin Time 12.6 Sec Prothrombin Time Ratio 1.0 INR International Normalized Ratio 0.93 Activated Partial Thromboplast Time 29.5 Sec Sodium Level 140 mmol/L Potassium Level 4.4 mmol/L Chloride Level 102 mmol/L Carbon Dioxide Level 21 mmol/L Anion Gap 17 Blood Urea Nitrogen 22 mg/dl Creatinine 0.53 mg/dl Est Glomerular Filtrat Rate mL/min mL/min Glucose Level 175 mg/dl Calcium Level 9.6 mg/dl Troponin I < 0.012 ng/ml Current Medications Medications Dose Sig/Supriya Start Time Status Last (Trade) Ordered Route PRN Stop Time Admin Dose Reason Admin Aspirin 325 mg ONCE STAT 03/20/18 DC 03/20/18 (Aspirin) PO 21:42 21:56 03/20/18 21:44 Procedures/MDM EKG, MONITORS, & DIAGNOSTIC IMAGING: EKG: I reviewed and interpreted a 12-lead EKG. Rhythm: Normal sinus rhythm ST Changes: No contiguous ST segment elevations T waves: No contiguous T wave inversions Impression: [No evidence of acute cardiac ischemia] Repeat EKG: EKG: I reviewed and interpreted a 12-lead EKG. Rhythm: Normal sinus rhythm ST Changes: No contiguous ST segment elevations T waves: No contiguous T wave inversions Impression: [No evidence of acute cardiac ischemia] Chest x-ray: I reviewed and interpreted a 1 view of the chest Mediastinum: No enlargement Cardiac silhouette: No cardiomegaly Airspace: Clear lung lin bilaterally without evidence of pneumothorax Bones: No evidence of fracture Arterial duplex: Pending PROCEDURES: [None] LAB INTERPRETATION: * Negative troponin MEDICAL DECISION MAKING: The patient's history, physical exam and clinical presentation is concerning for possible cardiogenic etiology and acute coronary syndrome. The patient's bilateral lower extremity pain and discoloration is likely secondary to chronic peripheral arterial disease. No evidence of acute vascular occlusion or DVT Based on the patient's clinical exam and history and risk factors, I have a much lower clinical concern for pulmonary embolism, acute aortic dissection, pneumothorax, pneumonia, cardiac tamponade HEART Score: Greater than 4 MACE Rate: 16.6% Shared Decision Making: We had a conversation regarding risk stratification, MACE rate, and the risks, benefits, alternatives of disposition planning options. Disposition planning: Inpatient hospitalization ER COURSE: * Aspirin provided. No active pain. Troponin negative. * Patient is pending vascular study, inpatient consultation with vascular specialist would be appropriate. * Clinically the patient's foot exam shows no signs or symptoms concerning for acute infectious process. CONSULTATION: [None] DISPOSITION PLAN: Telemetry admission for management of chest pain to rule out acute coronary synd linn, serial enzymes, risk stratification and consideration of provocative testing CONSULTATION: Accepting care team and consultations: I discussed the current laboratory data, diagnostic imaging and emergency care provided. Admitting team: Dr. Vizcaino Admitting team indication: Insurance directed Departure Diagnosis: Primary Impression: Chest pain Chest pain type: unspecified Qualified Codes: R07.9 - Chest pain, unspecified Additional Impression: Peripheral arterial disease Condition: Stable DUC MERINO MD Mar 20, 2018 23:00
--- NOTE | 2018-03-20 23:02 | HP ---
Date/Time of Note Date/Time of Note DATE: 03/20/18 TIME: 23:02 Assessment/Plan VTE Prophylaxis Pharmacological prophylaxis: heparin Lines/Catheters IV Catheter Type (from Nrs): Saline Lock Assessment/Plan Hospital Course This is a 73-year-old female was being admitted to the telemetry floor for: #1 chest pain: Rule out ACS versus anginal equivalent: Patient does report chest pain on exertion. At the current time we will trend cardiac enzymes x3, the first that was negative. Will check an echocardiogram. EKG is nonischemic. Co ntinue aspirin daily. PRN nitro. Dr. Diaz, patient did have previous cardiac catheterization that showed Obstructive coronary artery disease with diffuse stenosis of LAD. Patient denies any cardiac surgery. Previous echocardiogram shows: Ejection fraction is visually estimated at 45 %. Abnormal Diastolic Function. #2 Suspect intermittent claudication: Likely secondary to peripheral arterial disease: At the current time she has been already ordered a ultrasound arterial Doppler by the ER. Will await results. Continue aspirin, statin, #3 right great toe wound: No bleeding or discharge noted, there is a white cream on the wound at the current time. Will obtain an x-ray. Arterial Dopplers have already been ordered as well. Will consult podiatry dr. philip. #4 cardiomyopathy with reduced ejection fraction: Echocardiogram from June 2017: Ejection fraction is visually estimated at 45 %. Abnormal Diastolic Function. Resume patient's home medications, will consult cardiology #5 diabetes mellitus: Patient also has peripheral neuropathy. At the current time we will continue gabapentin, will check hemoglobin A1c, insulin sliding scale #6 coronary artery disease: Previous EF of 45% with diastolic dysfunction. Continue aspirin, statin, beta-itzel, consult cardiology. Echocardiogram. #7 anxiety: Continue home medication #8 seasonal allergies: Continue loratadine #9 hypertension: Continue home meds #10 hyperlipidemia: We will check lipid panel, continue statin #11 DVT GI prophylaxis: Heparin, no GI prophylaxis indicated Further treatment strategy will be implemented as per the clinical course. Result Diagram: 03/20/18215303/20/184 Results 24hrs Laboratory Tests Test 03/20/18 21:54 White Blood Count 10.2 # Red Blood Count 4.67 Hemoglobin 12.2 Hematocrit 37.3 Mean Corpuscular Volume 79.9 L Mean Corpuscular Hemoglobin 26.1 L Mean Corpuscular Hemoglobin Concent 32.7 Red Cell Distribution Width 13.3 Platelet Count 311 Mean Platelet Volume 11.0 H Immature Granulocytes % 0.300 Neutrophils % 57.5 Lymphocytes % 31.0 Monocytes % 5.7 Eosinophils % 4.7 Basophils % 0.8 Nucleated Red Blood Cells % 0.0 Immature Granulocytes # 0.030 Neutrophils # 5.9 Lymphocytes # 3.2 H Monocytes # 0.6 Eosinophils # 0.5 Basophils # 0.1 Nucleated Red Blood Cells # 0.0 Prothrombin Time 12.6 Prothrombin Time Ratio 1.0 INR International Normalized Ratio 0.93 Activated Partial Thromboplast Time 29.5 Sodium Level 140 Potassium Level 4.4 Chloride Level 102 Carbon Dioxide Level 21 Anion Gap 17 H Blood Urea Nitrogen 22 H Creatinine 0.53 Est Glomerular Filtrat Rate mL/min Glucose Level 175 Calcium Level 9.6 Troponin I < 0.012 HPI/ROS Admit Date/Time Admit Date/Time Hx of Present Illness Plan: Right great toe pain,, chest pain on exertion This is a 73-year-old female with a past medical history of diabetes mellitus hypertension hyperlipidemia diabetic neuropathy who presents today with symptoms of right foot pain times 5 days as well as chest pain on exertion. Patient reports that she has been experiencing chest pain or shortness of breath on exertion only. She denies any radiation of the pain. When she sits down to rest her symptoms resolved. She denies any lower extremity swelling. Denies any wheezing. Patient also reports that she has a right foot wound that has been going on for couple of months. She states that it healed after the put some cream on it and then after that it opened up again. She also reports that as she walks she has cramping in her legs. She has noticed her feet being discolored as well. Allergies: NKDA Medications: See May Const: As per HPI Eyes : No pain discharge or redness or change in visual acuity ENT: No pain, sore throat, congestion, congestion, dysphagia or discharge Respiratory: No shortness of breath, cough, sputum, wheezing, or pleuritic pain Cardiovascular: No chest pain, palpitation, PND, or edema GI : no change in appetite, abdominal pain, nausea, vomiting, diarrhea, constipation, or change in the color his stool Genitourinary: No dysuria, hematuria, flank pain , discharge or CVA tenderness Musculoskeletal: As per HPI Skin: As per HPI Neuro: No headache, dizziness, syncope, seizure, focal weakness Endocrine: No polyuria, polydipsia, temperature intolerance Psych: No hallucination, depression, anxiety or suicidal ideation Vascular: As per HPI PMH/Family/Social Past Medical History Diabetes mellitus, diabetic neuropathy, hypertension hyperlipidemia seasonal allergies, anxiety, coronary artery disease, history of non-STEMI, history o cardia myopathy with reduced ejection fraction Medications Current Medications Ondansetron HCl (Zofran Inj) 4 mg ER BRIDGE PRN IV NAUSEA AND/OR VOMITING; Start 03/20/18 at 23:00; Stop 03/21/18 at 22:59 Acetaminophen (Tylenol Tab) 650 mg ER BRIDGE PRN PO MILD PAIN(1-3)OR ELEVATED TEMP; Start 03/20/18 at 23:00; Stop 03/21/18 at 22:59 Coded Allergies: No Known Allergies (Verified Allergy, Unknown, 03/21/18) Past Surgical History Cardiac cath June 2017:showed Obstructive coronary artery disease with diffuse stenosis of LAD acquiring evaluation for bypass surgery. Family History Significant Family History: no pertinent family hx Social History Alcohol Use: none Smoking Status: Never smoker Drug Use: none Exam/Review of Systems Vital Signs Vitals Vital Signs Date Temp Pulse Resp B/P (MAP) Pulse Ox O2 O2 Flow FiO2 Time Delivery Rate 03/20/18 98.0 88 18 178/86 98 19:03 (116) Exam Exam General: Patient is a pleasant female currently lying in bed in no acute distress HEENT: Atraumatic, normocephalic. The pupils are equal, round and reactive. Extraocular motor are intact Neck: Supple with full range of motion. No rigidity or meningismus Chest: Nontender Lungs: Clear to auscultation bilaterally no crackles rales or wheezing Heart: Normal S1-S2, Regular rhythm and rate. No overt murmurs appreciated on auscultation Abdomen: Soft , nontender, nondistended , bowel sounds are present. No guarding no rebound tenderness , No masses or organomegaly. No costovertebral temporal angle mass Extremities: Normal to inspection, no edema no cyanosis Skin: Right great toe: Open wound of the medial aspect of the right great toe, white cream on it, no bleeding noted. Discoloration of the bilateral feet, Vascular: 1+ DP pulses bilaterally Neurologic: Normal mental status, speech normal, cranial nerves II through XII are intact, motor and sensory are intact, Additional Comments EKG: Normal sinus rhythm at approximately 81 bpm, no ST or T wave abnormalities concerning for acute ischemia PROCEDURE: XR Chest. CLINICAL INDICATION: Chest pain TECHNIQUE: Single portable view of the chest was obtained COMPARISON: CR CHEST 04/30/2015; CR CHEST 04/20/2014 FINDINGS: The trachea is midline. The cardiac silhouette is enlarged and pulmonary vascularity are within normal limits. There is atherosclerotic calcification of the aortic knob. The lungs are clear. The costophrenic angles are sharp. IMPRESSION: 1. Cardiomegaly and atherosclerotic disease. 2. No evidence of acute cardiopulmonary disease. RPTAT: AAPP Physician Rita Date Time Electronically viewed and signed by Ignacia Arellano Physician on 03/20/2018 22:20 JL/ CC: DUC MERINO MD [id number] CARLOS ALBERTO HUNTLEY Mar 20, 2018 23:02
[2018-03-20] MEDS ORDERED: NAPR-985 PO (23:37)
[2018-03-20] MEDS ORDERED: GABA300C16 PO (23:37)
[2018-03-20] MEDS ORDERED: LORA10TA3 PO (23:37)
[2018-03-20] MEDS ORDERED: AMLO-147 PO (23:37)
[2018-03-20] MEDS: HEPARIN 5,000 UNIT/1 ML VIAL SC SCH (23:53)
[2018-03-20] MEDS: METOPROLOL 25 MG TAB PO SCH (23:53)
[2018-03-21] VITALS (12 sets, daily range): BP systolic 106–155; BP diastolic 58–72; PULSE 61–88; RESP 18–20; Ht 152.4 cm; Wt 51.8 kg
[2018-03-21] MEDS ORDERED: DEXTROSE 50% 50 ML SYRINGE IV PRN ×2 (02:30)
[2018-03-21] MEDS ORDERED: GLUCOSE GEL 15 GRAM TUBE PO PRN ×2 (02:30)
[2018-03-21] MEDS ORDERED: GLUCOSE GEL 15 GRAM TUBE BUCCAL PRN (02:30)
[2018-03-21] MEDS ORDERED: GLUCAGON 1 MG INJ IM PRN (02:30)
[2018-03-21] MEDS: AMLODIPINE 10 MG TAB PO SCH ×2 (03:03→09:18)
[2018-03-21] MEDS: HEPARIN 5,000 UNIT/1 ML VIAL SC SCH ×3 (05:54→21:46)
[2018-03-21] MEDS: INSULIN ASPART [NOVOLOG] 3 ML PEN SC SCH ×4 (08:14→21:45)
[2018-03-21] MEDS ORDERED: ASPIRIN 81 MG TAB PO SCH (09:00)
[2018-03-21] MEDS: MOMETASONE 0.24 GM INHALER INH SCH ×2 (09:17→20:52)
[2018-03-21] MEDS: GABAPENTIN 300 MG CAP PO SCH (09:17)
[2018-03-21] MEDS: BUSPIRONE 5 MG TAB PO SCH ×2 (09:17→20:52)
[2018-03-21] MEDS: LORATADINE 10 MG TAB PO SCH (09:18)
[2018-03-21] MEDS: ASPIRIN (EC) 81 MG TAB PO SCH (09:18)
[2018-03-21] MEDS: LOSARTAN 50 MG TAB PO SCH (09:18)
[2018-03-21] MEDS: METOPROLOL 25 MG TAB PO SCH (09:19)
--- NOTE | 2018-03-21 11:39 | PN ---
Date/Time of Note Date/Time of Note DATE: 03/21/18 TIME: 11:39 Assessment/Plan VTE Prophylaxis Pharmacological prophylaxis: heparin Lines/Catheters IV Catheter Type (from Nrs): Saline Lock Assessment/Plan Hospital Course SUBJECTIVE: Denies any chest pain at this time. OBJECTIVE: Physical Exam General: Adequately build 73 year-old female lying in bed in no apparent distress. HEENT: Normocephalic, atraumatic. Eyes: Anicteric sclerae, conjunctivae clear. ENT: Nasal septum midline, oral mucosa moist. Neck supple, no JVD noticed. Respiratory: Bilaterally diminished breath sounds. No use of accessory muscles of respiration. Minimal basilar rails on the left side. Cardiovascular: S1, S2 heard. Regular rate and rhythm. Abdomen: Soft, nontender, and nondistended. Bowel sounds positive in all 4 quadrants. Genitourinary: Deferred. Extremities: No cyanosis, no clubbing, no edema. Peripheral pulses palpable. Neurologic: Cranial nerves II through XII grossly intact. The patient is awake, alert, and oriented. Skin: Normal skin turgor. No skin rashes. Labs & Vitals per chart ASSESSMENT & PLAN This is a 73-year-old female with comorbidities including obstructive coronary artery disease who was recommended to have a CABG, diabetes mellitus type 2, diabetic neuropathy, hypertension, and peripheral vascular disease, who came to the emergency room with chief complaint of chest pain and right great toe pain along with aright great toe wound. The patient was admitted to inpatient setting for further treatment and evaluation. 1. Chest pain. -Known history of CAD. -Continue ASA. -Cardiology evaluation pending. 2. Right great toe wound. -Local wound care. -Podiatry consult obtained. 3. DM type 2. -Continue SSI with basal and premeal insulin. -A1C 8.8. 4. Hypertension. -Continue antihypertensives. 5. Peripheral vascular disease. -Continue antiplatelet therapy. -Vascular consult. 6. Dyslipidemia. -Continue statins. 7. Diabetic neuropathy. -Continue gabapentin. 8. Ischemic cardiomyopathy. -Continue beta-blockers and ARBs. 9. Fluids, electrolytes, and nutrition. -Carbohydrate controlled diet. 10. DVT prophylaxis. -Subcutaneous heparin. 11. Plan. -Continue current management. -Await podiatry and cardiology evaluation. The patient was seen in collaboration with Dr. Ruiz. Result Diagram: 03/21/18 0426 03/21/18 0426 Results 24hrs Laboratory Tests Test 03/20/18 21:54 03/21/18 04:26 03/21/18 08:09 03/21/18 09:49 White Blood Count 10.2 # 7.7 # Red Blood Count 4.67 4.34 Hemoglobin 12.2 11.4 L Hematocrit 37.3 35.0 L Mean Corpuscular 79.9 L 80.6 L Volume Mean Corpuscular 26.1 L 26.3 L Hemoglobin Mean Corpuscular 32.7 32.6 Hemoglobin Concent Red Cell 13.3 13.0 Distribution Width Platelet Count 311 283 Mean Platelet Volume 11.0 H 11.1 H Immature 0.300 0.300 Granulocytes % Neutrophils % 57.5 53.7 Lymphocytes % 31.0 34.2 Monocytes % 5.7 5.4 Eosinophils % 4.7 5.6 Basophils % 0.8 0.8 Nucleated Red Blood 0.0 0.0 Cells % Immature 0.030 0.020 Granulocytes # Neutrophils # 5.9 4.2 Lymphocytes # 3.2 H 2.7 Monocytes # 0.6 0.4 Eosinophils # 0.5 0.4 Basophils # 0.1 0.1 Nucleated Red Blood 0.0 0.0 Cells # Prothrombin Time 12.6 Prothrombin Time 1.0 Ratio INR International 0.93 Normalized Ratio Activated 29.5 Partial Thromboplast Time Sodium Level 140 141 Potassium Level 4.4 4.4 Chloride Level 102 103 Carbon Dioxide Level 21 24 Anion Gap 17 H 14 H Blood Urea Nitrogen 22 H 16 Creatinine 0.53 0.44 Est Glomerular Filtrat Rate mL/min Glucose Level 175 188 Calcium Level 9.6 9.4 Troponin I < 0.012 < 0.012 < 0.012 Hemoglobin A1c 8.8 H Magnesium Level 1.7 Iron Level 64 Total Iron Binding 305 Capacity Percent Iron 21 L Saturation Ferritin 67.1 Total Bilirubin 0.1 L Direct Bilirubin 0.00 Indirect Bilirubin 0.1 Aspartate Amino 17 Transf (AST/SGOT) Alanine 21 Aminotransferase (AL T/SGPT) Alkaline Phosphatase 67 Creatine Kinase 52 47 Creatine Kinase 1.2 1.1 Index Creatinine Kinase MB 0.63 0.51 (Mass) Total Protein 7.0 Albumin 3.8 Globulin 3.20 Albumin/Globulin 1.18 Ratio Triglycerides Level 159 H Cholesterol Level 166 LDL Cholesterol, 88 Calculated HDL Cholesterol 46 Cholesterol/HDL 3.6 Ratio Thyroid Stimulating 0.791 Hormone (TSH) Bedside Glucose 209 Exam/Review of Systems Vital Signs Vitals Vital Signs Date Temp Pulse Resp B/P (MAP) Pulse Ox O2 O2 Flow FiO2 Time Delivery Rate 03/21/18 97.7 69 20 118/60 97 Room Air 11:22 (79) Intake and Output 03/20/18 03/20/18 03/21/18 1515:00 23:00 07:00 IntakeIntake Total 240 ml BalanceBalance 240 ml Medications Medications Current Medications Ondansetron HCl (Zofran Inj) 4 mg ER BRIDGE PRN IV NAUSEA AND/OR VOMITING; Start 03/20/18 at 23:00; Stop 03/21/18 at 22:59 Acetaminophen (Tylenol Tab) 650 mg ER BRIDGE PRN PO MILD PAIN(1-3)OR ELEVATED TEMP; Start 03/20/18 at 23:00; Stop 03/21/18 at 22:59 Aspirin (Halfprin) 81 mg DAILY PO Last administered on 03/21/18at 09:18; Admin Dose 81 MG; Start 03/21/18 at 09:00 Atorvastatin Calcium (Lipitor) 40 mg DAILY@21 PO ; Start 03/21/18 at 21:00 Buspirone HCl (Buspar) 5 mg BID PO Last administered on 03/21/18at 09:17; Admin Dose 5 MG; Start 03/21/18 at 09:00 Losartan Potassium (Cozaar) 100 mg DAILY PO Last administered on 03/21/18at 09:18; Admin Dose 100 MG; Start 03/21/18 at 09:00 Metoprolol Tartrate (Lopressor) 25 mg BID PO Last administered on 03/21/18at 09:19; Admin Dose 25 MG; Start 03/20/18 at 23:00 Mometasone Furoate (Asmanex) 1 puff Q12H INH Last administered on 03/21/18at 09:17; Admin Dose 1 PUFF; Start 03/21/18 at 09:00 IV Flush (NS 3 ml) 3 ml PER PROTOCOL IV ; Start 03/20/18 at 23:00 Ondansetron HCl (Zofran Tab) 4 mg Q6H PRN PO NAUSEA AND/OR VOMITING; Start 03/20/18 at 23:00 Nitroglycerin (Nitroglycerin (Sl Tab) 0.4 Mg) 1 tab Q5M PRN SL CHEST PAIN; Start 03/20/18 at 23:00 Acetaminophen (Tylenol Tab) 650 mg Q6H PRN PO PAIN LEVEL 1-3 OR FEVER; Start 03/20/18 at 23:00 Docusate Sodium (Colace) 100 mg Q12H PRN PO CONSTIPATION; Start 03/20/18 at 23:00 Bisacodyl (Dulcolax) 5 mg DAILY PRN PO CONSTIPATION; Start 03/20/18 at 23:00 Heparin Sodium (Porcine) (Heparin (5000 Units/1ml)) 5,000 unit Q8 SC Last administered on 03/21/18at 05:54; Admin Dose 5,000 UNIT; Start 03/20/18 at 23:00 Diagnostic Test (Pha) (Accu-Chek) 1 ea 02 XX ; Start 03/22/18 at 02:00 Insulin Aspart (Novolog Insulin Pen) NOVOLOG *MILD* ALGORITHM WITH MEALS BEDTIM E SC Last administered on 03/21/18at 08:14; Admin Dose 2 UNIT; Start 03/21/18 at 08:00 Amlodipine Besylate (Norvasc) 10 mg DAILY PO Last administered on 03/21/18at 09:18; Admin Dose 10 MG; Start 03/21/18 at 02:30 Hydralazine HCl (Apresoline) 10 mg Q6H PRN PO ELEVATED BLOOD PRESSURE; Start 03/21/18 at 02:30 Miscellaneous Information 1 ea NOTE XX ; Start 03/21/18 at 02:30 Glucose (Glutose) 15 gm Q15M PRN PO DECREASED GLUCOSE; Start 03/21/18 at 02:30 Glucose (Glutose) 22.5 gm Q15M PRN PO DECREASED GLUCOSE; Start 03/21/18 at 02:30 Dextrose (D50w Syringe) 25 ml Q15M PRN IV DECREASED GLUCOSE; Start 03/21/18 at 02:30 Dextrose (D50w Syringe) 50 ml Q15M PRN IV DECREASED GLUCOSE; Start 03/21/18 at 02:30 Glucagon (Glucagen) 1 mg Q15M PRN IM DECREASED GLUCOSE; Start 03/21/18 at 02:30 Glucose (Glutose) 15 gm Q15M PRN BUCCAL DECREASED GLUCOSE; Start 03/21/18 at 02:30 Gabapentin (Neurontin) 300 mg DAILY PO Last administered on 03/21/18at 09:17; Admin Dose 300 MG; Start 03/21/18 at 09:00 Loratadine (Claritin) 10 mg DAILY PO Last administered on 03/21/18at 09:18; Admin Dose 10 MG; Start 03/21/18 at 09:00 Influenza Virus Vaccine Quadrival (Fluzone) 0.5 ml ONCE ONCE IM* ; Start 03/22/18 at 10:00; Stop 03/22/18 at 10:01 BARBARA GALLARDO NP Mar 21, 2018 11:39
--- NOTE | 2018-03-21 11:46 | RADRPT ---
Echocardiogram Report Patient Name: IVONE GOFF Gender: Female Date: 1945 Study Date: 21-Mar-2018 Orange Grower: Cheng Greco [facility] Location: [id number] Ref. Physician: CARLOS ALBERTO HUNTLEY Quality: Adequate Procedures: Transthoracic echocardiogram with complete 2D, M-Mode, and doppler examination. Indications: Chest Pain. 2D/M Mode Doppler Measurement Value Normal Ranges Measurement Value Normal Ranges LVIDd 2D 4.0 3.5 - 5.6 cm AV Peak Devon 1.4 m/sec LVIDs 2D 2.2 2.1 - 4.1 cm AV Peak PG 8.0 mmHg FS 2D 44.1 % AI Peak PG 53.0 mmHg LVPWd 2D 1.1 0.6 - 1.1 cm AI Peak Devon 3.6 m/sec IVSd 2D 1.2 0.6 - 1.1 cm AI PHT 440.0 msec IVS/LVPW 2D 1.2 LVOT Peak Devon 0.8 m/sec AoR Diam 2D 2.9 2.0 - 3.7 cm LVOT Peak PG 2.0 mmHg LA/Ao 2D 1 0 - 1 MV E Peak Devon 0.7 m/sec EDV 2D 63.5 cm3 MV A Peak Devon 1.2 m/sec ESV 2D 11.1 cm3 MV E/A 0.6 LA Dimen 2D 3.5 2.3 - 4.0 cm MV Decel Time 218 msec MV E/A 0.6 TR Peak Devon 2.3 m/sec TR Peak PG 21.0 mmHg RVSP 24.0 mmHg RA Pressure 3.0 Findings Left Ventricle: Lower limits of normal systolic function. Normal left ventricular cavity size. Mild concentric left ventricular hypertrophy. Ejection fraction is visually estimated at 50 %. Tissue Doppler/Mitral Doppler indices are consistent with impaired relaxation (Stage I diastolic dysfunction). Right Ventricle: Normal right ventricular size. Normal right ventricular systolic function. Left Atrium: The left atrium is normal in size. Right Atrium: The right atrium is normal in size. Mitral Valve: Mitral valve leaflets appear mildly thickened. Mild mitral annular calcification. Mild mitral valve regurgitation. Aortic Valve: No hemodynamically significant aortic stenosis by doppler. Aortic cusps appear mildly calcified. Mild aortic valve regurgitation. Tricuspid Valve: Normal appearance of the tricuspid valve. Estimated peak PA systolic pressure 24 mmHg. There is trace tricuspid regurgitation. Pulmonic Valve: Normal pulmonic valve appearance. There is trace pulmonic regurgitation. Pericardium: Normal pericardium with no significant pericardial effusion. Aorta: Normal aortic root. IVC: Normal size and normal respiratory collapse consistent with normal right atrial pressure. Conclusions Lower limits of normal systolic function. Normal left ventricular cavity size. Mild concentric left ventricular hypertrophy. Ejection fraction is visually estimated at 50 %. Tissue Doppler/Mitral Doppler indices are consistent with impaired relaxation (Stage I diastolic dysfunction). Normal right ventricular size. Normal right ventricular systolic function. The left atrium is normal in size. The right atrium is normal in size. Mild mitral valve regurgitation. No hemodynamically significant aortic stenosis by doppler. Mild aortic valve regurgitation. Estimated peak PA systolic pressure 24 mmHg. There is trace tricuspid regurgitation. Normal pericardium with no significant pericardial effusion. Electronically Signed By: Ricardo Diaz 21-Mar-2018 11:45:11 -0800 Patient Name: IVONE GOFF Study Date: 21-Mar-2018 [id number]
--- NOTE | 2018-03-21 11:55 | CONS ---
Date/Time of Note Date/Time of Note DATE: 03/21/18 TIME: 11:47 Assessment/Plan Assessment/Plan Assessment/Plan Right foot pain with wound Peripheral arterial disease Obstructive CAD Stable angina Diabetes Hypertension Cardia myopathy with ejection fraction 50% -Patient presents with right foot pain progressing over the past 3 months with a wound. On further questioning, she also complains of exertional chest pain. This is been ongoing for over a year. -Patient did have a coronary angiogram performed at our facility in June 2017 in the setting of mildly elevated troponin. Patient with severe triple vessel obstructive coronary artery disease and recommendations were for coronary artery bypass grafting. On further questioning, patient tells me she went to [facility] but does not know what the recommendations were. She has not had any revascularization since then. -Would recommend obtaining records from the other facility, otherwise continue aspirin and statin therapy, beta-itzel, nitroglycerin as tolerated. Result Diagram: 03/21/18 0426 03/21/18 0426 Results 24hrs Laboratory Tests Test 03/20/18 21:54 03/21/18 04:26 03/21/18 08:09 03/21/18 09:49 White Blood Count 10.2 # 7.7 # Red Blood Count 4.67 4.34 Hemoglobin 12.2 11.4 L Hematocrit 37.3 35.0 L Mean Corpuscular 79.9 L 80.6 L Volume Mean Corpuscular 26.1 L 26.3 L Hemoglobin Mean Corpuscular 32.7 32.6 Hemoglobin Concent Red Cell 13.3 13.0 Distribution Width Platelet Count 311 283 Mean Platelet Volume 11.0 H 11.1 H Immature 0.300 0.300 Granulocytes % Neutrophils % 57.5 53.7 Lymphocytes % 31.0 34.2 Monocytes % 5.7 5.4 Eosinophils % 4.7 5.6 Basophils % 0.8 0.8 Nucleated Red Blood 0.0 0.0 Cells % Immature 0.030 0.020 Granulocytes # Neutrophils # 5.9 4.2 Lymphocytes # 3.2 H 2.7 Monocytes # 0.6 0.4 Eosinophils # 0.5 0.4 Basophils # 0.1 0.1 Nucleated Red Blood 0.0 0.0 Cells # Prothrombin Time 12.6 Prothrombin Time 1.0 Ratio INR International 0.93 Normalized Ratio Activated 29.5 Partial Thromboplast Time Sodium Level 140 141 Potassium Level 4.4 4.4 Chloride Level 102 103 Carbon Dioxide Level 21 24 Anion Gap 17 H 14 H Blood Urea Nitrogen 22 H 16 Creatinine 0.53 0.44 Est Glomerular Filtrat Rate mL/min Glucose Level 175 188 Calcium Level 9.6 9.4 Troponin I < 0.012 < 0.012 < 0.012 Hemoglobin A1c 8.8 H Magnesium Level 1.7 Iron Level 64 Total Iron Binding 305 Capacity Percent Iron 21 L Saturation Ferritin 67.1 Total Bilirubin 0.1 L Direct Bilirubin 0.00 Indirect Bilirubin 0.1 Aspartate Amino 17 Transf (AST/SGOT) Alanine 21 Aminotransferase (AL T/SGPT) Alkaline Phosphatase 67 Creatine Kinase 52 47 Creatine Kinase 1.2 1.1 Index Creatinine Kinase MB 0.63 0.51 (Mass) Total Protein 7.0 Albumin 3.8 Globulin 3.20 Albumin/Globulin 1.18 Ratio Triglycerides Level 159 H Cholesterol Level 166 LDL Cholesterol, 88 Calculated HDL Cholesterol 46 Cholesterol/HDL 3.6 Ratio Thyroid Stimulating 0.791 Hormone (TSH) Bedside Glucose 209 Consultation Date/Type/Reason Admit Date/Time Type of Consult cv Reason for Consultation Chest pain Hx of Present Illness This is a 73-year-old female known to me from a recent admission in June 2017 who presents to the hospital with worsening foot pain over the past 3 months. Patient states she has a wound on her right foot with pain with palpation and walking. Pain has been worsening over the past 3 months. On further questioning, patient also complains of exertional chest pain. This is been ongoing for over a year. Symptoms are chest pain with exertion which resolves at rest and has mentioned this is been ongoing and has not worsened. She denies any current chest pain or shortness of breath, dizziness, fevers or chills. 12 point review of systems was performed with all pertinent positives and negatives mentioned above and all else is negative Past Medical History Medical History: coronary artery disease, diabetes, hypertension Medications Current Medications Ondansetron HCl (Zofran Inj) 4 mg ER BRIDGE PRN IV NAUSEA AND/OR VOMITING; Start 03/20/18 at 23:00; Stop 03/21/18 at 22:59 Acetaminophen (Tylenol Tab) 650 mg ER BRIDGE PRN PO MILD PAIN(1-3)OR ELEVATED TEMP; Start 03/20/18 at 23:00; Stop 03/21/18 at 22:59 Aspirin (Halfprin) 81 mg DAILY PO Last administered on 03/21/18at 09:18; Admin Dose 81 MG; Start 03/21/18 at 09:00 Atorvastatin Calcium (Lipitor) 40 mg DAILY@21 PO ; Start 03/21/18 at 21:00 Buspirone HCl (Buspar) 5 mg BID PO Last administered on 03/21/18at 09:17; Admin Dose 5 MG; Start 03/21/18 at 09:00 Losartan Potassium (Cozaar) 100 mg DAILY PO Last administered on 03/21/18at 09:18; Admin Dose 100 MG; Start 03/21/18 at 09:00 Metoprolol Tartrate (Lopressor) 25 mg BID PO Last administered on 03/21/18at 09:19; Admin Dose 25 MG; Start 03/20/18 at 23:00 Mometasone Furoate (Asmanex) 1 puff Q12H INH Last administered on 03/21/18at 09:17; Admin Dose 1 PUFF; Start 03/21/18 at 09:00 IV Flush (NS 3 ml) 3 ml PER PROTOCOL IV ; Start 03/20/18 at 23:00 Ondansetron HCl (Zofran Tab) 4 mg Q6H PRN PO NAUSEA AND/OR VOMITING; Start 03/20/18 at 23:00 Nitroglycerin (Nitroglycerin (Sl Tab) 0.4 Mg) 1 tab Q5M PRN SL CHEST PAIN; Start 03/20/18 at 23:00 Acetaminophen (Tylenol Tab) 650 mg Q6H PRN PO PAIN LEVEL 1-3 OR FEVER; Start 03/20/18 at 23:00 Docusate Sodium (Colace) 100 mg Q12H PRN PO CONSTIPATION; Start 03/20/18 at 23:00 Bisacodyl (Dulcolax) 5 mg DAILY PRN PO CONSTIPATION; Start 03/20/18 at 23:00 Heparin Sodium (Porcine) (Heparin (5000 Units/1ml)) 5,000 unit Q8 SC Last administered on 03/21/18at 05:54; Admin Dose 5,000 UNIT; Start 03/20/18 at 23:00 Diagnostic Test (Pha) (Accu-Chek) 1 ea 02 XX ; Start 03/22/18 at 02:00 Insulin Aspart (Novolog Insulin Pen) NOVOLOG *MILD* ALGORITHM WITH MEALS BEDTIME SC Last administered on 03/21/18at 08:14; Admin Dose 2 UNIT; Start 03/21/18 at 08:00 Amlodipine Besylate (Norvasc) 10 mg DAILY PO Last administered on 03/21/18at 09:18; Admin Dose 10 MG; Start 03/21/18 at 02:30 Hydralazine HCl (Apresoline) 10 mg Q6H PRN PO ELEVATED BLOOD PRESSURE; Start 03/21/18 at 02:30 Miscellaneous Information 1 ea NOTE XX ; Start 03/21/18 at 02:30 Glucose (Glutose) 15 gm Q15M PRN PO DECREASED GLUCOSE; Start 03/21/18 at 02:30 Glucose (Glutose) 22.5 gm Q15M PRN PO DECREASED GLUCOSE; Start 03/21/18 at 02:30 Dextrose (D50w Syringe) 25 ml Q15M PRN IV DECREASED GLUCOSE; Start 03/21/18 at 02:30 Dextrose (D50w Syringe) 50 ml Q15M PRN IV DECREASED GLUCOSE; Start 03/21/18 at 02:30 Glucagon (Glucagen) 1 mg Q15M PRN IM DECREASED GLUCOSE; Start 03/21/18 at 02:30 Glucose (Glutose) 15 gm Q15M PRN BUCCAL DECREASED GLUCOSE; Start 03/21/18 at 02:30 Gabapentin (Neurontin) 300 mg DAILY PO Last administered on 03/21/18at 09:17; Admin Dose 300 MG; Start 03/21/18 at 09:00 Loratadine (Claritin) 10 mg DAILY PO Last administered on 03/21/18at 09:18; Admin Dose 10 MG; Start 03/21/18 at 09:00 Influenza Virus Vaccine Quadrival (Fluzone) 0.5 ml ONCE ONCE IM* ; Start 03/22/18 at 10:00; Stop 03/22/18 at 10:01 Allergies: Coded Allergies: No Known Allergies (Verified Allergy, Unknown, 03/21/18) Past Surgical History Past Surgical Hx: other (Angiogram) Family History Significant Family History: no pertinent family hx Social History Alcohol Use: none Smoking Status: Never smoker Drug Use: none Exam/Review of Systems Vital Signs Vitals Vital Signs Date Temp Pulse Resp B/P (MAP) Pulse Ox O2 O2 Flow FiO2 Time Delivery Rate 03/21/18 97.7 69 20 118/60 97 Room Air 11:22 (79) Intake and Output 03/20/18 03/20/18 03/21/18 1515:00 23:00 07:00 IntakeIntake Total 240 ml BalanceBalance 240 ml Exam No apparent distress Constitutional: alert, oriented Head: normocephalic Respiratory: clear to auscultation, normal air movement Cardiovascular: regular rate and rhythm, other (S1-S2 heard) Gastrointestinal: soft, non-tender, bowel sounds Extremities: other (Bandaged right foot) Medications Medications Current Medications Ondansetron HCl (Zofran Inj) 4 mg ER BRIDGE PRN IV NAUSEA AND/OR VOMITING; Start 03/20/18 at 23:00; Stop 03/21/18 at 22:59 Acetaminophen (Tylenol Tab) 650 mg ER BRIDGE PRN PO MILD PAIN(1-3)OR ELEVATED TEMP; Start 03/20/18 at 23:00; Stop 03/21/18 at 22:59 Aspirin (Halfprin) 81 mg DAILY PO Last administered on 03/21/18at 09:18; Admin Dose 81 MG; Start 03/21/18 at 09:00 Atorvastatin Calcium (Lipitor) 40 mg DAILY@21 PO ; Start 03/21/18 at 21:00 Buspirone HCl (Buspar) 5 mg BID PO Last administered on 03/21/18at 09:17; Admin Dose 5 MG; Start 03/21/18 at 09:00 Losartan Potassium (Cozaar) 100 mg DAILY PO Last administered on 03/21/18at 09:18; Admin Dose 100 MG; Start 03/21/18 at 09:00 Metoprolol Tartrate (Lopressor) 25 mg BID PO Last administered on 03/21/18at 09:19; Admin Dose 25 MG; Start 03/20/18 at 23:00 Mometasone Furoate (Asmanex) 1 puff Q12H INH Last administered on 03/21/18at 09:17; Admin Dose 1 PUFF; Start 03/21/18 at 09:00 IV Flush (NS 3 ml) 3 ml PER PROTOCOL IV ; Start 03/20/18 at 23:00 Ondansetron HCl (Zofran Tab) 4 mg Q6H PRN PO NAUSEA AND/OR VOMITING; Start 03/20/18 at 23:00 Nitroglycerin (Nitroglycerin (Sl Tab) 0.4 Mg) 1 tab Q5M PRN SL CHEST PAIN; Start 03/20/18 at 23:00 Acetaminophen (Tylenol Tab) 650 mg Q6H PRN PO PAIN LEVEL 1-3 OR FEVER; Start 03/20/18 at 23:00 Docusate Sodium (Colace) 100 mg Q12H PRN PO CONSTIPATION; Start 03/20/18 at 23:00 Bisacodyl (Dulcolax) 5 mg DAILY PRN PO CONSTIPATION; Start 03/20/18 at 23:00 Heparin Sodium (Porcine) (Heparin (5000 Units/1ml)) 5,000 unit Q8 SC Last administered on 03/21/18at 05:54; Admin Dose 5,000 UNIT; Start 03/20/18 at 23:00 Diagnostic Test (Pha) (Accu-Chek) 1 ea 02 XX ; Start 03/22/18 at 02:00 Insulin Aspart (Novolog Insulin Pen) NOVOLOG *MILD* ALGORITHM WITH MEALS BEDTIME SC Last administered on 03/21/18at 08:14; Admin Dose 2 UNIT; Start 03/21/18 at 08:00 Amlodipine Besylate (Norvasc) 10 mg DAILY PO Last administered on 03/21/18at 09:18; Admin Dose 10 MG; Start 03/21/18 at 02:30 Hydralazine HCl (Apresoline) 10 mg Q6H PRN PO ELEVATED BLOOD PRESSURE; Start 03/21/18 at 02:30 Miscellaneous Information 1 ea NOTE XX ; Start 03/21/18 at 02:30 Glucose (Glutose) 15 gm Q15M PRN PO DECREASED GLUCOSE; Start 03/21/18 at 02:30 Glucose (Glutose) 22.5 gm Q15M PRN PO DECREASED GLUCOSE; Start 03/21/18 at 02:30 Dextrose (D50w Syringe) 25 ml Q15M PRN IV DECREASED GLUCOSE; Start 03/21/18 at 02:30 Dextrose (D50w Syringe) 50 ml Q15M PRN IV DECREASED GLUCOSE; Start 03/21/18 at 02:30 Glucagon (Glucagen) 1 mg Q15M PRN IM DECREASED GLUCOSE; Start 03/21/18 at 02:30 Glucose (Glutose) 15 gm Q15M PRN BUCCAL DECREASED GLUCOSE; Start 03/21/18 at 02:30 Gabapentin (Neurontin) 300 mg DAILY PO Last administered on 03/21/18at 09:17; Admin Dose 300 MG; Start 03/21/18 at 09:00 Loratadine (Claritin) 10 mg DAILY PO Last administered on 03/21/18at 09:18; Admin Dose 10 MG; Start 03/21/18 at 09:00 Influenza Virus Vaccine Quadrival (Fluzone) 0.5 ml ONCE ONCE IM* ; Start 03/22/18 at 10:00; Stop 03/22/18 at 10:01 Imaging Imaging ECG with sinus rhythm, septal Q waves, normal QRS duration, nonspecific ST abnormalities Ricardo Diaz DO Mar 21, 2018 11:55
[2018-03-21] MEDS: ISOSORBIDE DINITRATE 5 MG TAB PO SCH ×2 (13:42→20:51)
[2018-03-21] MEDS ORDERED: METOPROLOL 25 MG TAB ONE (19:55)
[2018-03-21] MEDS ORDERED: ATORVASTATIN 40 MG TAB ONE (19:55)
[2018-03-21] MEDS: ATORVASTATIN 40 MG TAB PO SCH (20:52)
[2018-03-21] MEDS: METOPROLOL 50 MG TAB PO SCH (20:55)
[2018-03-22] VITALS (11 sets, daily range): BP systolic 106–129; BP diastolic 58–67; PULSE 53–89; RESP 17–18
--- NOTE | 2018-03-22 00:21 | CONS ---
DATE OF ADMISSION: 03/20/2018 DATE OF CONSULTATION: 03/21/2018 REASON FOR CONSULTATION: Right foot ulceration. HISTORY OF PRESENT ILLNESS: This is a 73-year-old female who was admitted from the emergency room fo r chest pain. The patient is with history of cardiac disease with a diffuse stenosis of LAD. The pa luz has known cardiomyopathy, diabetes and has a right hallux ulceration at the time of admission a nd was asked to evaluate. PAST MEDICAL HISTORY: Includes coronary artery disease has EF of 45% with diastolic dysfunction, his tory of diffuse stenosis of LAD, hypertension, hyperlipidemia, diabetes with neuropathy, history of N STEMI. ALLERGIES: NONE. PAST SURGICAL HISTORY: History of cardiac catheterization on June 2017. SOCIAL HISTORY: He denies any tobacco, alcohol or illicit drug use. PHYSICAL EXAMINATION: VITAL SIGNS: Temperature 98.2, pulse 70, respiratory 18, blood pressure 106/59, pulse oximetry is 95 on room air. GENERAL: The patient alert, oriented, in no acute distress. CHEST: Regular respiration. He denies any chest pain. EXTREMITIES: The patient with a chronically discolored skin venous stasis hyperpigmentation. Toes a re cool to touch. There are superficial ulcerations of the right distal hallux without cellulitis. Nails are painted, but dystrophic. No pressure sores noted. Pedal pulses DP, PT nonpalpable. Right foot x-ray with a right great toe swelling, no bony destructive changes, no fracture, no osteop orosis, atherosclerosis is noted. Extremity arterial study reveals right TY 0.79, left TY 0.62, mo nophasic flow of the right and left posterior tibial and dorsalis pedis arteries. ASSESSMENT: 1. Right foot ulceration with peripheral arterial disease. 2. Diabetes. 3. Coronary artery disease with prior recommendations of CABG. 4. Diabetes type 2 with peripheral neuropathy. PLAN: The patient is seen and evaluated. Ulceration superficial may benefit from vascular consultat ion and nursing recommendations given with wound care instructions, reviewed arterial Dopplers, tammyi denver further cardiology recommendations. Dictated By: NICK STAPLES/FRANCISCA Conf#: [id number] DID#: [id number]
[2018-03-22] MEDS: ACCU-CHEK XX SCH (02:00)
[2018-03-22] MEDS ORDERED: COLLAGENASE 5 GM (UD JAR) TOP ONE (04:32)
[2018-03-22] MEDS: HEPARIN 5,000 UNIT/1 ML VIAL SC SCH ×3 (06:09→23:12)
[2018-03-22] MEDS: MOMETASONE 0.24 GM INHALER INH SCH ×2 (08:53→20:46)
[2018-03-22] MEDS: BUSPIRONE 5 MG TAB PO SCH ×2 (08:53→20:43)
[2018-03-22] MEDS: ISOSORBIDE DINITRATE 5 MG TAB PO SCH ×3 (08:53→20:42)
[2018-03-22] MEDS: ASPIRIN (EC) 81 MG TAB PO SCH (08:53)
[2018-03-22] MEDS: AMLODIPINE 5 MG TAB PO SCH (08:54)
[2018-03-22] MEDS: GABAPENTIN 300 MG CAP PO SCH (08:54)
[2018-03-22] MEDS: COLLAGENASE 5 GM (UD JAR) TOP SCH (08:54)
[2018-03-22] MEDS: LORATADINE 10 MG TAB PO SCH (08:54)
[2018-03-22] MEDS: LOSARTAN 50 MG TAB PO SCH (08:55)
[2018-03-22] MEDS: METOPROLOL 50 MG TAB PO SCH ×2 (08:55→20:43)
[2018-03-22] MEDS: INSULIN ASPART [NOVOLOG] 3 ML PEN SC SCH ×4 (09:36→21:09)
--- NOTE | 2018-03-22 09:41 | CONS ---
Date/Time of Note Date/Time of Note DATE: 03/22/18 TIME: 09:41 Assessment/Plan Assessment/Plan Assessment/Plan 73-year-old female w/ h/o DM, HTN, hyperlipidemia, CAD with a diffuse stenosis of LAD s/p cardiac cath 06/2017 now w/ CP. Pt being evaluated by cardiology. Pt will require RLE angiogram for chronic R 1st toe ulceration w/ pain. This will be coordinated after cardiology evaluation. Continue wound care as per Dr. Whittaker. Contact information provided to patient and family. Result Diagram: 03/22/18 0516 03/22/18 0517 Results 24hrs Laboratory Tests Test 03/21/18 09:49 03/21/18 12:11 03/21/18 17:28 03/21/18 20:58 Creatine Kinase 47 Creatine Kinase 1.1 Index Creatinine Kinase MB 0.51 (Mass) Troponin I < 0.012 Bedside Glucose 180 187 234 H Test 03/22/18 02:05 03/22/18 05:16 03/22/18 05:17 03/22/18 08:10 Bedside Glucose 199 214 White Blood Count 7.6 Red Blood Count 4.48 Hemoglobin 11.6 L Hematocrit 36.0 L Mean Corpuscular 80.4 L Volume Mean Corpuscular 25.9 L Hemoglobin Mean Corpuscular 32.2 Hemoglobin Concent Red Cell 13.1 Distribution Width Platelet Count 296 Mean Platelet Volume 11.2 H Immature 0.400 Granulocytes % Neutrophils % 49.4 Lymphocytes % 37.8 Monocytes % 6.7 Eosinophils % 4.6 Basophils % 1.1 Nucleated Red Blood 0.0 Cells % Immature 0.030 Granulocytes # Neutrophils # 3.8 Lymphocytes # 2.9 Monocytes # 0.5 Eosinophils # 0.4 Basophils # 0.1 Nucleated Red Blood 0.0 Cells # Phosphorus Level 4.6 Magnesium Level 2.0 Troponin I < 0.012 Sodium Level 139 Potassium Level 4.5 Chloride Level 102 Carbon Dioxide Level 24 Anion Gap 13 Blood Urea Nitrogen 18 Creatinine 0.56 Est Glomerular Filtrat Rate mL/min Glucose Level 215 Calcium Level 9.3 Consultation Date/Type/Reason Admit Date/Time Date of Consultation: Mar 22, 2018 Reason for Consultation Right foot toe ulcer with pain Requesting Provider: NICK SALEH DPM Hx of Present Illness 73-year-old female w/ h/o DM, HTN, hyperlipidemia, CAD with a diffuse stenosis of LAD s/p cardiac cath 06/2017 but unclear if any further intervention was performed afterwards who now was admitted w/ chest pain. She has chronic R first toe ulcer with pain and Dr. Whittaker has requested vascular evaluation. Pt says wound has been present for "months" and has pain at site. She notes "difficulty" w/ ambulation due to pain. Denies h/o interventions to BLE. BLE arterial doppler u/s showed BLE significant tibial arterial occlusive disease w/ depressed bilateral ABIs, R 0.79 L 0.62. Denies F, C, N/V. 14-point ROS performed, negative except noted in HPI Past Medical History Coronary artery disease, EF of 45% with diastolic dysfunction w/ diffuse st enosis of LAD, h/o NSTEMI, hypertension, hyperlipidemia, diabetes with neuropathy Medical History: coronary artery disease, diabetes, hypertension Medications Current Medications Aspirin (Halfprin) 81 mg DAILY PO Last administered on 03/22/18at 08:53; Admin Dose 81 MG; Start 03/21/18 at 09:00 Atorvastatin Calcium (Lipitor) 40 mg DAILY@21 PO Last administered on 03/21/18at 20:52; Admin Dose 40 MG; Start 03/21/18 at 21:00 Buspirone HCl (Buspar) 5 mg BID PO Last administered on 03/22/18at 08:53; Admin Dose 5 MG; Start 03/21/18 at 09:00 Losartan Potassium (Cozaar) 100 mg DAILY PO Last administered on 03/22/18at 08:55; Admin Dose 100 MG; Start 03/21/18 at 09:00 Mometasone Furoate (Asmanex) 1 puff Q12H INH Last administered on 03/22/18at 08:53; Admin Dose 1 PUFF; Start 03/21/18 at 09:00 IV Flush (NS 3 ml) 3 ml PER PROTOCOL IV ; Start 03/20/18 at 23:00 Ondansetron HCl (Zofran Tab) 4 mg Q6H PRN PO NAUSEA AND/OR VOMITING; Start 03/20/18 at 23:00 Nitroglycerin (Nitroglycerin (Sl Tab) 0.4 Mg) 1 tab Q5M PRN SL CHEST PAIN; Start 03/20/18 at 23:00 Acetaminophen (Tylenol Tab) 650 mg Q6H PRN PO PAIN LEVEL 1-3 OR FEVER; Start 03/20/18 at 23:00 Docusate Sodium (Colace) 100 mg Q12H PRN PO CONSTIPATION; Start 03/20/18 at 23:00 Bisacodyl (Dulcolax) 5 mg DAILY PRN PO CONSTIPATION; Start 03/20/18 at 23:00 Heparin Sodium (Porcine) (Heparin (5000 Units/1ml)) 5,000 unit Q8 SC Last administered on 03/22/18at 06:09; Admin Dose 5,000 UNIT; Start 03/20/18 at 23:00 Diagnostic Test (Pha) (Accu-Chek) 1 ea 02 XX ; Start 03/22/18 at 02:00 Insulin Aspart (Novolog Insulin Pen) NOVOLOG *MILD* ALGORITHM WITH MEALS BEDTIME SC Last administered on 03/22/18at 09:36; Admin Dose 2 UNIT; Start 03/21/18 at 08:00 Hydralazine HCl (Apresoline) 10 mg Q6H PRN PO ELEVATED BLOOD PRESSURE; Start 03/21/18 at 02:30 Miscellaneous Information 1 ea NOTE XX ; Start 03/21/18 at 02:30 Glucose (Glutose) 15 gm Q15M PRN PO DECREASED GLUCOSE; Start 03/21/18 at 02:30 Glucose (Glutose) 22.5 gm Q15M PRN PO DECREASED GLUCOSE; Start 03/21/18 at 02:30 Dextrose (D50w Syringe) 25 ml Q15M PRN IV DECREASED GLUCOSE; Start 03/21/18 at 02:30 Dextrose (D50w Syringe) 50 ml Q15M PRN IV DECREASED GLUCOSE; Start 03/21/18 at 02:30 Glucagon (Glucagen) 1 mg Q15M PRN IM DECREASED GLUCOSE; Start 03/21/18 at 02:30 Glucose (Glutose) 15 gm Q15M PRN BUCCAL DECREASED GLUCOSE; Start 03/21/18 at 02:30 Gabapentin (Neurontin) 300 mg DAILY PO Last administered on 03/22/18at 08:54; Admin Dose 300 MG; Start 03/21/18 at 09:00 Loratadine (Claritin) 10 mg DAILY PO Last administered on 03/22/18at 08:54; Admin Dose 10 MG; Start 03/21/18 at 09:00 Influenza Virus Vaccine Quadrival (Fluzone) 0.5 ml ONCE ONCE IM* ; Start 03/22/18 at 10:00; Stop 03/22/18 at 10:01 Amlodipine Besylate (Norvasc) 5 mg DAILY PO Last administered on 03/22/18at 08:54; Admin Dose 5 MG; Start 03/22/18 at 09:00 Metoprolol Tartrate (Lopressor) 50 mg BID PO Last administered on 03/21/18at 20:55; Admin Dose 50 MG; Start 03/21/18 at 21:00 Isosorbide Dinitrate (Isordil) 5 mg TID PO Last administered on 03/22/18at 08:53; Admin Dose 5 MG; Start 03/21/18 at 13:00 Collagenase (Santyl) 1 applic DAILY TOP Last administered on 03/22/18at 08:54; Admin Dose 1 APPLIC; Start 03/22/18 at 09:00 Allergies: Coded Allergies: No Known Allergies (Verified Allergy, Unknown, 03/21/18) Past Surgical History Cardiac catheterization on June 2017 Past Surgical Hx: other (Angiogram) Social History Alcohol Use: none Smoking Status: Never smoker Drug Use: none Exam/Review of Systems Vital Signs Vitals Vital Signs Date Temp Pulse Resp B/P (MAP) Pulse Ox O2 O2 Flow FiO2 Time Delivery Rate 03/22/18 65 08:58 03/22/18 98.2 17 129/67 97 Room Air 07:25 (87) Intake and Output 03/21/18 03/21/18 03/22/18 1414:59 22:59 06:59 IntakeIntake Total 650 ml 720 ml BalanceBalance 650 ml 720 ml Exam Gen: AAOx3, NAD Neck: supple Heart: Reg Lungs: clear Abd: soft, NT, ND Extr: R foot 1st toe med aspect superficial appearing ulcer w/ tenderness, no drainage; L foot no wounds; no edema Pulses: 2+ palpable femoral and popliteal pulses, non-palpable bilateral pedal pulses Medications Medications Current Medications Aspirin (Halfprin) 81 mg DAILY PO Last administered on 03/22/18at 08:53; Admin Dose 81 MG; Start 03/21/18 at 09:00 Atorvastatin Calcium (Lipitor) 40 mg DAILY@21 PO Last administered on 03/21/18at 20:52; Admin Dose 40 MG; Start 03/21/18 at 21:00 Buspirone HCl (Buspar) 5 mg BID PO Last administered on 03/22/18at 08:53; Admin Dose 5 MG; Start 03/21/18 at 09:00 Losartan Potassium (Cozaar) 100 mg DAILY PO Last administered on 03/22/18at 08:55; Admin Dose 100 MG; Start 03/21/18 at 09:00 Mometasone Furoate (Asmanex) 1 puff Q12H INH Last administered on 03/22/18at 08:53; Admin Dose 1 PUFF; Start 03/21/18 at 09:00 IV Flush (NS 3 ml) 3 ml PER PROTOCOL IV ; Start 03/20/18 at 23:00 Ondansetron HCl (Zofran Tab) 4 mg Q6H PRN PO NAUSEA AND/OR VOMITING; Start 03/20/18 at 23:00 Nitroglycerin (Nitroglycerin (Sl Tab) 0.4 Mg) 1 tab Q5M PRN SL CHEST PAIN; Start 03/20/18 at 23:00 Acetaminophen (Tylenol Tab) 650 mg Q6H PRN PO PAIN LEVEL 1-3 OR FEVER; Start 03/20/18 at 23:00 Docusate Sodium (Colace) 100 mg Q12H PRN PO CONSTIPATION; Start 03/20/18 at 23:00 Bisacodyl (Dulcolax) 5 mg DAILY PRN PO CONSTIPATION; Start 03/20/18 at 23:00 Heparin Sodium (Porcine) (Heparin (5000 Units/1ml)) 5,000 unit Q8 SC Last administered on 03/22/18at 06:09; Admin Dose 5,000 UNIT; Start 03/20/18 at 23:00 Diagnostic Test (Pha) (Accu-Chek) 1 ea 02 XX ; Start 03/22/18 at 02:00 Insulin Aspart (Novolog Insulin Pen) NOVOLOG *MILD* ALGORITHM WITH MEALS BEDTIME SC Last administered on 03/22/18at 09:36; Admin Dose 2 UNIT; Start 03/21/18 at 08:00 Hydralazine HCl (Apresoline) 10 mg Q6H PRN PO ELEVATED BLOOD PRESSURE; Start 03/21/18 at 02:30 Miscellaneous Information 1 ea NOTE XX ; Start 03/21/18 at 02:30 Glucose (Glutose) 15 gm Q15M PRN PO DECREASED GLUCOSE; Start 03/21/18 at 02:30 Glucose (Glutose) 22.5 gm Q15M PRN PO DECREASED GLUCOSE; Start 03/21/18 at 02:30 Dextrose (D50w Syringe) 25 ml Q15M PRN IV DECREASED GLUCOSE; Start 03/21/18 at 02:30 Dextrose (D50w Syringe) 50 ml Q15M PRN IV DECREASED GLUCOSE; Start 03/21/18 at 02:30 Glucagon (Glucagen) 1 mg Q15M PRN IM DECREASED GLUCOSE; Start 03/21/18 at 02:30 Glucose (Glutose) 15 gm Q15M PRN BUCCAL DECREASED GLUCOSE; Start 03/21/18 at 02:30 Gabapentin (Neurontin) 300 mg DAILY PO Last administered on 03/22/18at 08:54; Admin Dose 300 MG; Start 03/21/18 at 09:00 Loratadine (Claritin) 10 mg DAILY PO Last administered on 03/22/18 08:54; Admin Dose 10 MG; Start 03/21/18 at 09:00 Influenza Virus Vaccine Quadrival (Fluzone) 0.5 ml ONCE ONCE IM* ; Start 03/22/18 at 10:00; Stop 03/22/18 at 10:01 Amlodipine Besylate (Norvasc) 5 mg DAILY PO Last administered on 03/22/18at 08:54; Admin Dose 5 MG; Start 03/22/18 at 09:00 Metoprolol Tartrate (Lopressor) 50 mg BID PO Last administered on 03/21/18at 20:55; Admin Dose 50 MG; Start 03/21/18 at 21:00 Isosorbide Dinitrate (Isordil) 5 mg TID PO Last administered on 03/22/18 08:53; Admin Dose 5 MG; Start 03/21/18 at 13:00 Collagenase (Santyl) 1 applic DAILY TOP Last administered on 03/22/18 08:54; Admin Dose 1 APPLIC; Start 03/22/18 at 09:00 CÉSAR MORILLO MD Mar 22, 2018 09:41
--- NOTE | 2018-03-22 10:17 | CONS ---
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% Assessment/Plan 1) recommend to rule out OM by MRI 2) subsequently discussion whether to proceed with CABG at this time Result Diagram: 03/22/18 0516 03/22/18 0517 Results 24hrs Laboratory Tests Test 03/21/18 12:11 03/21/18 17:28 03/21/18 20:58 03/22/18 02:05 Bedside Glucose 180 187 234 H 199 Test 03/22/18 05:16 03/22/18 05:17 03/22/18 08:10 White Blood Count 7.6 Red Blood Count 4.48 Hemoglobin 11.6 L Hematocrit 36.0 L Mean Corpuscular 80.4 L Volume Mean Corpuscular 25.9 L Hemoglobin Mean Corpuscular 32.2 Hemoglobin Concent Red Cell 13.1 Distribution Width Platelet Count 296 Mean Platelet Volume 11.2 H Immature 0.400 Granulocytes % Neutrophils % 49.4 Lymphocytes % 37.8 Monocytes % 6.7 Eosinophils % 4.6 Basophils % 1.1 Nucleated Red Blood 0.0 Cells % Immature 0.030 Granulocytes # Neutrophils # 3.8 Lymphocytes # 2.9 Monocytes # 0.5 Eosinophils # 0.4 Basophils # 0.1 Nucleated Red Blood 0.0 Cells # Phosphorus Level 4.6 Magnesium Level 2.0 Troponin I < 0.012 Sodium Level 139 Potassium Level 4.5 Chloride Level 102 Carbon Dioxide Level 24 Anion Gap 13 Blood Urea Nitrogen 18 Creatinine 0.56 Est Glomerular Filtrat Rate mL/min Glucose Level 215 Calcium Level 9.3 Bedside Glucose 214 Consultation Date/Type/Reason Admit Date/Time Mar 20, 2018 at 22:56 Initial Consult Date 03/22/18 Type of Consult cv Requesting Provider: NICK SALEH DPM 24 HR Interval Summary Free Text/Dictation no chest pain overnight Detailed Summary Respiratory: no complaints Cardiovascular: no complaints Gastrointestinal: no complaints Musculoskeletal: no complaints Skin: erythema Neurologic: no complaints Exam/Review of Systems Vital Signs Vitals Vital Signs Date Temp Pulse Resp B/P (MAP) Pulse Ox O2 O2 Flow FiO2 Time Delivery Rate 03/22/18 65 08:58 1/12/19 98.2 17 129/67 97 Room Air 07:25 (87) Intake and Output 03/21/18 03/21/18 03/22/18 1515:00 23:00 07:00 IntakeIntake Total 650 ml 720 ml BalanceBalance 650 ml 720 ml Exam Head: normocephalic, atraumatic Neck: supple Respiratory: clear to auscultation Cardiovascular: regular rate and rhythm Gastrointestinal: soft Musculoskeletal: muscle tone, muscle weakness Extremities: edema Medications Medications Current Medications Aspirin (Halfprin) 81 mg DAILY PO Last administered on 03/22/18at 08:53; Admin Dose 81 MG; Start 03/21/18 at 09:00 Atorvastatin Calcium (Lipitor) 40 mg DAILY@21 PO Last administered on 03/21/18at 20:52; Admin Dose 40 MG; Start 03/21/18 at 21:00 Buspirone HCl (Buspar) 5 mg BID PO Last administered on 03/22/18at 08:53; Admin Dose 5 MG; Start 03/21/18 at 09:00 Losartan Potassium (Cozaar) 100 mg DAILY PO Last administered on 03/22/18at 08:55; Admin Dose 100 MG; Start 03/21/18 at 09:00 Mometasone Furoate (Asmanex) 1 puff Q12H INH Last administered on 03/22/18at 08:53; Admin Dose 1 PUFF; Start 03/21/18 at 09:00 IV Flush (NS 3 ml) 3 ml PER PROTOCOL IV ; Start 03/20/18 at 23:00 Ondansetron HCl (Zofran Tab) 4 mg Q6H PRN PO NAUSEA AND/OR VOMITING; Start 03/20/18 at 23:00 Nitroglycerin (Nitroglycerin (Sl Tab) 0.4 Mg) 1 tab Q5M PRN SL CHEST PAIN; Start 03/20/18 at 23:00 Acetaminophen (Tylenol Tab) 650 mg Q6H PRN PO PAIN LEVEL 1-3 OR FEVER; Start 03/20/18 at 23:00 Docusate Sodium (Colace) 100 mg Q12H PRN PO CONSTIPATION; Start 03/20/18 at 23:00 Bisacodyl (Dulcolax) 5 mg DAILY PRN PO CONSTIPATION; Start 03/20/18 at 23:00 Heparin Sodium (Porcine) (Heparin (5000 Units/1ml)) 5,000 unit Q8 SC Last administered on 03/22/18at 06:09; Admin Dose 5,000 UNIT; Start 03/20/18 at 23:00 Diagnostic Test (Pha) (Accu-Chek) 1 ea 02 XX ; Start 03/22/18 at 02:00 Insulin Aspart (Novolog Insulin Pen) NOVOLOG *MILD* ALGORITHM WITH MEALS BEDTIME SC Last administered on 03/22/18at 09:36; Admin Dose 2 UNIT; Start 03/21/18 at 08:00 Hydralazine HCl (Apresoline) 10 mg Q6H PRN PO ELEVATED BLOOD PRESSURE; Start 03/21/18 at 02:30 Miscellaneous Information 1 ea NOTE XX ; Start 03/21/18 at 02:30 Glucose (Glutose) 15 gm Q15M PRN PO DECREASED GLUCOSE; Start 03/21/18 at 02:30 Glucose (Glutose) 22.5 gm Q15M PRN PO DECREASED GLUCOSE; Start 03/21/18 at 02:30 Dextrose (D50w Syringe) 25 ml Q15M PRN IV DECREASED GLUCOSE; Start 03/21/18 at 02:30 Dextrose (D50w Syringe) 50 ml Q15M PRN IV DECREASED GLUCOSE; Start 03/21/18 at 02:30 Glucagon (Glucagen) 1 mg Q15M PRN IM DECREASED GLUCOSE; Start 03/21/18 at 02:30 Glucose (Glutose) 15 gm Q15M PRN BUCCAL DECREASED GLUCOSE; Start 03/21/18 at 02:30 Gabapentin (Neurontin) 300 mg DAILY PO Last administered on 03/22/18at 08:54; Admin Dose 300 MG; Start 03/21/18 at 09:00 Loratadine (Claritin) 10 mg DAILY PO Last administered on 03/22/18at 08:54; Admin Dose 10 MG; Start 03/21/18 at 09:00 Amlodipine Besylate (Norvasc) 5 mg DAILY PO Last administered on 03/22/18at 08:54; Admin Dose 5 MG; Start 03/22/18 at 09:00 Metoprolol Tartrate (Lopressor) 50 mg BID PO Last administered on 03/21/18at 20:55; Admin Dose 50 MG; Start 03/21/18 at 21:00 Isosorbide Dinitrate (Isordil) 5 mg TID PO Last administered on 03/22/18at 08:53; Admin Dose 5 MG; Start 03/21/18 at 13:00 Collagenase (Santyl) 1 applic DAILY TOP Last administered on 03/22/18at 08:54; Admin Dose 1 APPLIC; Start 03/22/18 at 09:00 SAHRA WONG MD Mar 22, 2018 10:17
--- NOTE | 2018-03-22 12:31 | PN ---
Date/Time of Note Date/Time of Note DATE: 03/22/18 TIME: 12:31 Assessment/Plan VTE Prophylaxis Risk score (from Ns)>0 risk: 3 SCD applied (from Ns): No SCD contraindicated: other Pharmacological prophylaxis: heparin Lines/Catheters IV C[facility]ter Type [facility]from [facility] [place] Assessment/Plan Hospital Course SUBJECTIVE: Denies any chest pain at this time. OBJECTIVE: Physical Exam General: Adequately build 73 year-old female lying in bed in no apparent distress. HEENT: Normocephalic, atraumatic. Eyes: Anicteric sclerae, conjunctivae clear. ENT: Nasal septum midline, oral mucosa moist. Neck supple, no JVD noticed. Respiratory: Bilaterally diminished breath sounds. No use of accessory muscles of respiration. Minimal basilar rails on the left side. Cardiovascular: S1, S2 heard. Regular rate and rhythm. Abdomen: Soft, nontender, and nondistended. Bowel sounds positive in all 4 quadrants. Genitourinary: Deferred. Extremities: No cyanosis, no clubbing, no edema. Peripheral pulses palpable. Neurologic: Cranial nerves II through XII grossly intact. The patient is awake, alert, and oriented. Skin: Normal skin turgor. No skin rashes. Labs & Vitals per chart ASSESSMENT & PLAN This is a 73-year-old female with comorbidities including obstructive coronary artery disease who was recommended to have a CABG, diabetes mellitus type 2, diabetic neuropathy, hypertension, and peripheral vascular disease, who came to the emergency room with chief complaint of chest pain and right great toe pain along with aright great toe wound. The patient was admitted to inpatient setting for further treatment and evaluation. 1. Chest pain. -Known history of CAD. -Continue ASA. -Cardiology following. 2. Right great toe ulcer. -Continue local wound care. -Not likely infected. -Podiatry following. -As per podiatry, the ulceration is superficial and vascular surgery input appreciated. 3. DM type 2. -Continue SSI with basal and premeal insulin. -A1C 8.8. 4. Hypertension. -Continue antihypertensives. 5. Peripheral vascular disease. -Continue antiplatelet therapy. -Vascular consult. -Vascular surgery recommending right lower extremity angiogram. 6. Dyslipidemia. -Continue statins. 7. Diabetic neuropathy. -Continue gabapentin. 8. Ischemic cardiomyopathy. -Continue beta-blockers and ARBs. 9. Fluids, electrolytes, and nutrition. -Carbohydrate controlled diet. 10. DVT prophylaxis. -Subcutaneous heparin. 11. Plan. -Continue current management. -Await further cardiology and vascular surgery recommendations. The patient was seen in collaboration with Dr. Ruiz. Result Diagram: 03/22/18 0516 03/22/18 0517 Results 24hrs Laboratory Tests Test 03/21/18 17:28 03/21/18 20:58 03/22/18 02:05 03/22/18 05:16 Bedside Glucose 187 234 H 199 White Blood Count 7.6 Red Blood Count 4.48 Hemoglobin 11.6 L Hematocrit 36.0 L Mean Corpuscular 80.4 L Volume Mean Corpuscular 25.9 L Hemoglobin Mean Corpuscular 32.2 Hemoglobin Concent Red Cell 13.1 Distribution Width Platelet Count 296 Mean Platelet Volume 11.2 H Immature 0.400 Granulocytes % Neutrophils % 49.4 Lymphocytes % 37.8 Monocytes % 6.7 Eosinophils % 4.6 Basophils % 1.1 Nucleated Red Blood 0.0 Cells % Immature 0.030 Granulocytes # Neutrophils # 3.8 Lymphocytes # 2.9 Monocytes # 0.5 Eosinophils # 0.4 Basophils # 0.1 Nucleated Red Blood 0.0 Cells # Phosphorus Level 4.6 Magnesium Level 2.0 Troponin I < 0.012 Test 03/22/18 05:17 03/22/18 08:10 03/22/18 11:52 Sodium Level 139 Potassium Level 4.5 Chloride Level 102 Carbon Dioxide Level 24 Anion Gap 13 Blood Urea Nitrogen 18 Creatinine 0.56 Est Glomerular Filtrat Rate mL/min Glucose Level 215 Calcium Level 9.3 Bedside Glucose 214 274 H Exam/Review of Systems Vital Signs Vitals Vital Signs Date Temp Pulse Resp B/P (MAP) Pulse Ox O2 O2 Flow FiO2 Time Delivery Rate 03/22/18 98.2 17 106/58 96 11:17 (74) 03/22/18 65 08:58 03/22/18 Room Air 07:25 Intake and Output 03/21/18 03/21/18 03/22/18 1414:59 22:59 06:59 IntakeIntake Total 650 ml 720 ml BalanceBalance 650 ml 720 ml Medications Medications Current Medications Aspirin (Halfprin) 81 mg DAILY PO Last administered on 03/22/18at 08:53; Admin Dose 81 MG; Start 03/21/18 at 09:00 Atorvastatin Calcium (Lipitor) 40 mg DAILY@21 PO Last administered on 03/21/18at 20:52; Admin Dose 40 MG; Start 03/21/18 at 21:00 Buspirone HCl (Buspar) 5 mg BID PO Last administered on 03/22/18at 08:53; Admin Dose 5 MG; Start 03/21/18 at 09:00 Losartan Potassium (Cozaar) 100 mg DAILY PO Last administered on 03/22/18at 08:55; Admin Dose 100 MG; Start 03/21/18 at 09:00 Mometasone Furoate (Asmanex) 1 puff Q12H INH Last administered on 03/22/18at 08:53; Admin Dose 1 PUFF; Start 03/21/18 at 09:00 IV Flush (NS 3 ml) 3 ml PER PROTOCOL IV ; Start 03/20/18 at 23:00 Ondansetron HCl (Zofran Tab) 4 mg Q6H PRN PO NAUSEA AND/OR VOMITING; Start 03/20/18 at 23:00 Nitroglycerin (Nitroglycerin (Sl Tab) 0.4 Mg) 1 tab Q5M PRN SL CHEST PAIN; Start 03/20/18 at 23:00 Acetaminophen (Tylenol Tab) 650 mg Q6H PRN PO PAIN LEVEL 1-3 OR FEVER; Start 03/20/18 at 23:00 Docusate Sodium (Colace) 100 mg Q12H PRN PO CONSTIPATION; Start 03/20/18 at 23:00 Bisacodyl (Dulcolax) 5 mg DAILY PRN PO CONSTIPATION; Start 03/20/18 at 23:00 Heparin Sodium (Porcine) (Heparin (5000 Units/1ml)) 5,000 unit Q8 SC Last administered on 03/22/18at 06:09; Admin Dose 5,000 UNIT; Start 03/20/18 at 23:00 Diagnostic Test (Pha) (Accu-Chek) 1 ea 02 XX ; Start 03/22/18 at 02:00 Insulin Aspart (Novolog Insulin Pen) NOVOLOG *MILD* ALGORITHM WITH MEALS BEDTIME SC Last administered on 03/22/18at 12:10; Admin Dose 4 UNIT; Start 03/21/18 at 08:00 Hydralazine HCl (Apresoline) 10 mg Q6H PRN PO ELEVATED BLOOD PRESSURE; Start 03/21/18 at 02:30 Miscellaneous Information 1 ea NOTE XX ; Start 03/21/18 at 02:30 Glucose (Glutose) 15 gm Q15M PRN PO DECREASED GLUCOSE; Start 03/21/18 at 02:30 Glucose (Glutose) 22.5 gm Q15M PRN PO DECREASED GLUCOSE; Start 03/21/18 at 02:30 Dextrose (D50w Syringe) 25 ml Q15M PRN IV DECREASED GLUCOSE; Start 03/21/18 at 02:30 Dextrose (D50w Syringe) 50 ml Q15M PRN IV DECREASED GLUCOSE; Start 03/21/18 at 02:30 Glucagon (Glucagen) 1 mg Q15M PRN IM DECREASED GLUCOSE; Start 03/21/18 at 02:30 Glucose (Glutose) 15 gm Q15M PRN BUCCAL DECREASED GLUCOSE; Start 03/21/18 at 02:30 Gabapentin (Neurontin) 300 mg DAILY PO Last administered on 03/22/18at 08:54; Admin Dose 300 MG; Start 03/21/18 at 09:00 Loratadine (Claritin) 10 mg DAILY PO Last administered on 03/22/18 08:54; Admin Dose 10 MG; Start 03/21/18 at 09:00 Amlodipine Besylate (Norvasc) 5 mg DAILY PO Last administered on 03/22/18at 08:54; Admin Dose 5 MG; Start 03/22/18 at 09:00 Metoprolol Tartrate (Lopressor) 50 mg BID PO Last administered on 03/21/18at 20:55; Admin Dose 50 MG; Start 03/21/18 at 21:00 Isosorbide Dinitrate (Isordil) 5 mg TID PO Last administered on 03/22/18at 08:53; Admin Dose 5 MG; Start 03/21/18 at 13:00 Collagenase (Santyl) 1 applic DAILY TOP Last administered on 03/22/18at 08:54; Admin Dose 1 APPLIC; Start 03/22/18 at 09:00 BARBARA GALLARDO NP Mar 22, 2018 12:31
[2018-03-22] MEDS: ATORVASTATIN 40 MG TAB PO SCH (20:42)
[2018-03-23] VITALS (12 sets, daily range): BP systolic 108–133; BP diastolic 54–69; PULSE 58–74; RESP 18–21
[2018-03-23] MEDS: ACCU-CHEK XX SCH (02:41)
[2018-03-23] MEDS ORDERED: INSULIN ASPART [NOVOLOG] 3 ML PEN SC ONE (03:00)
[2018-03-23] MEDS: HEPARIN 5,000 UNIT/1 ML VIAL SC SCH ×3 (06:45→22:28)
[2018-03-23] MEDS: AMLODIPINE 5 MG TAB PO SCH (08:32)
[2018-03-23] MEDS: LOSARTAN 50 MG TAB PO SCH (08:32)
[2018-03-23] MEDS: BUSPIRONE 5 MG TAB PO SCH ×2 (08:32→20:30)
[2018-03-23] MEDS: ASPIRIN (EC) 81 MG TAB PO SCH (08:32)
[2018-03-23] MEDS: GABAPENTIN 300 MG CAP PO SCH (08:32)
[2018-03-23] MEDS: LORATADINE 10 MG TAB PO SCH (08:33)
[2018-03-23] MEDS: METOPROLOL 50 MG TAB PO SCH ×2 (08:33→20:31)
[2018-03-23] MEDS: COLLAGENASE 5 GM (UD JAR) TOP SCH (08:34)
[2018-03-23] MEDS: ISOSORBIDE DINITRATE 5 MG TAB PO SCH ×3 (08:34→20:31)
[2018-03-23] MEDS: MOMETASONE 0.24 GM INHALER INH SCH ×2 (08:34→20:31)
[2018-03-23] MEDS: INSULIN ASPART [NOVOLOG] 3 ML PEN SC SCH ×4 (08:39→19:55)
--- NOTE | 2018-03-23 12:37 | CONS ---
Date/Time of Note Date/Time of Note DATE: 03/23/18 TIME: 12:35 Assessment/Plan Assessment/Plan Assessment/Plan Right foot pain with wound Peripheral arterial disease Obstructive CAD Stable angina Diabetes Hypertension Cardia myopathy with ejection fraction 50% -Patient presents with right foot pain progressing over the past 3 months with a wound. On further questioning, she also complains of exertional chest pain. This is been ongoing for over a year. -Patient did have a coronary angiogram performed at our facility in June 2017 in the setting of mildly elevated troponin. Patient with severe triple vessel obstructive coronary artery disease and recommendations were for coronary artery bypass grafting. On further questioning, patient tells me she went to [facility] but does not know what the recommendations were. She has not had any revascularization since then. -Would recommend obtaining records from the other facility-this was requested and so has not been received, otherwise continue aspirin and statin therapy, beta-itzel, nitroglycerin as tolerated. -Continue concomitant vascular evaluation. Result Diagram: 03/23/18 0456 03/23/18 0456 Results 24hrs Laboratory Tests Test 03/22/18 13:44 03/22/18 17:21 03/22/18 20:48 03/23/18 02:40 Vitamin D < 12.8 L 1,25-Dihydroxy Bedside Glucose 217 236 H 214 Test 03/23/18 04:56 03/23/18 06:34 03/23/18 07:50 03/23/18 11:42 White Blood Count 7.7 Red Blood Count 4.39 Hemoglobin 11.5 L Hematocrit 35.7 L Mean Corpuscular 81.3 L Volume Mean Corpuscular 26.2 L Hemoglobin Mean Corpuscular 32.2 Hemoglobin Concent Red Cell 13.1 Distribution Width Platelet Count 308 Mean Platelet Volume 11.0 H Immature 0.300 Granulocytes % Neutrophils % 54.1 Lymphocytes % 33.0 Monocytes % 7.0 Eosinophils % 4.7 Basophils % 0.9 Nucleated Red Blood 0.0 Cells % Immature 0.020 Granulocytes # Neutrophils # 4.2 Lymphocytes # 2.6 Monocytes # 0.5 Eosinophils # 0.4 Basophils # 0.1 Nucleated Red Blood 0.0 Cells # Sodium Level 140 Potassium Level 4.0 Chloride Level 107 Carbon Dioxide Level 23 Anion Gap 10 Blood Urea Nitrogen 16 Creatinine 0.58 Est Glomerular Filtrat Rate mL/min Glucose Level 168 Calcium Level 9.5 Phosphorus Level 3.9 Magnesium Level 1.8 Bedside Glucose 131 163 257 H Consultation Date/Type/Reason Admit Date/Time Mar 22, 2018 at 20:41 Initial Consult Date 03/22/18 Type of Consult cv Requesting Provider: NICK SALEH DPM 24 HR Interval Summary Free Text/Dictation no cp, palp, sob. Undergoing vascular evaluation Exam/Review of Systems Vital Signs Vitals Vital Signs Date Temp Pulse Resp B/P (MAP) Pulse Ox O2 O2 Flow FiO2 Time Delivery Rate 03/23/18 72 12:14 03/23/18 98.1 20 121/63 96 Room Air 11:15 (82) Intake and Output 03/22/18 03/22/18 03/23/18 1515:00 23:00 07:00 IntakeIntake Total 920 ml 400 ml BalanceBalance 920 ml 400 ml Exam No apparent distress Constitutional: alert, oriented Head: normocephalic Respiratory: other (Coarse breath sounds bilaterally, no wheezing) Cardiovascular: regular rate and rhythm, other (S1-S2 heard) Gastrointestinal: soft, non-tender, bowel sounds Extremities: other (No edema) Medications Medications Current Medications Aspirin (Halfprin) 81 mg DAILY PO Last administered on 03/23/18 08:32; Admin Dose 81 MG; Start 03/21/18 at 09:00 Atorvastatin Calcium (Lipitor) 40 mg DAILY@21 PO Last administered on 03/22/18at 20:42; Admin Dose 40 MG; Start 03/21/18 at 21:00 Buspirone HCl (Buspar) 5 mg BID PO Last administered on 03/23/18 08:32; Admin Dose 5 MG; Start 03/21/18 at 09:00 Losartan Potassium (Cozaar) 100 mg DAILY PO Last administered on 03/23/18 08:32; Admin Dose 100 MG; Start 03/21/18 at 09:00 Mometasone Furoate (Asmanex) 1 puff Q12H INH Last administered on 03/23/18at 08:34; Admin Dose 1 PUFF; Start 03/21/18 at 09:00 IV Flush (NS 3 ml) 3 ml PER PROTOCOL IV ; Start 03/20/18 at 23:00 Ondansetron HCl (Zofran Tab) 4 mg Q6H PRN PO NAUSEA AND/OR VOMITING; Start 03/20/18 at 23:00 Nitroglycerin (Nitroglycerin (Sl Tab) 0.4 Mg) 1 tab Q5M PRN SL CHEST PAIN; Start 03/20/18 at 23:00 Acetaminophen (Tylenol Tab) 650 mg Q6H PRN PO PAIN LEVEL 1-3 OR FEVER; Start 03/20/18 at 23:00 Docusate Sodium (Colace) 100 mg Q12H PRN PO CONSTIPATION; Start 03/20/18 at 23:00 Bisacodyl (Dulcolax) 5 mg DAILY PRN PO CONSTIPATION; Start 03/20/18 at 23:00 Heparin Sodium (Porcine) (Heparin (5000 Units/1ml)) 5,000 unit Q8 SC Last administered on 03/23/18at 06:45; Admin Dose 5,000 UNIT; Start 03/20/18 at 23:00 Diagnostic Test (Pha) (Accu-Chek) 1 ea 02 XX Last administered on 03/23/18at 02:41; Admin Dose 1 EA; Start 03/22/18 at 02:00 Insulin Aspart (Novolog Insulin Pen) NOVOLOG *MILD* ALGORITHM WITH MEALS BEDTIME SC Last administered on 03/23/18at 12:32; Admin Dose 3 UNIT; Start 03/21/18 at 08:00 Hydralazine HCl (Apresoline) 10 mg Q6H PRN PO ELEVATED BLOOD PRESSURE; Start 03/21/18 at 02:30 Miscellaneous Information 1 ea NOTE XX ; Start 03/21/18 at 02:30 Glucose (Glutose) 15 gm Q15M PRN PO DECREASED GLUCOSE; Start 03/21/18 at 02:30 Glucose (Glutose) 22.5 gm Q15M PRN PO DECREASED GLUCOSE; Start 03/21/18 at 02:30 Dextrose (D50w Syringe) 25 ml Q15M PRN IV DECREASED GLUCOSE; Start 03/21/18 at 02:30 Dextrose (D50w Syringe) 50 ml Q15M PRN IV DECREASED GLUCOSE; Start 03/21/18 at 02:30 Glucagon (Glucagen) 1 mg Q15M PRN IM DECREASED GLUCOSE; Start 03/21/18 at 02:30 Glucose (Glutose) 15 gm Q15M PRN BUCCAL DECREASED GLUCOSE; Start 03/21/18 at 02:30 Gabapentin (Neurontin) 300 mg DAILY PO Last administered on 03/23/18 08:32; Admin Dose 300 MG; Start 03/21/18 at 09:00 Loratadine (Claritin) 10 mg DAILY PO Last administered on 03/23/18 08:33; Admin Dose 10 MG; Start 03/21/18 at 09:00 Amlodipine Besylate (Norvasc) 5 mg DAILY PO Last administered on 03/23/18 08:32; Admin Dose 5 MG; Start 03/22/18 at 09:00 Metoprolol Tartrate (Lopressor) 50 mg BID PO Last administered on 03/23/18 08:33; Admin Dose 50 MG; Start 03/21/18 at 21:00 Isosorbide Dinitrate (Isordil) 5 mg TID PO Last administered on 03/23/18 08:34; Admin Dose 5 MG; Start 03/21/18 at 13:00 Collagenase (Santyl) 1 applic DAILY TOP Last administered on 03/23/18 08:34; Admin Dose 1 APPLIC; Start 03/22/18 at 09:00 Ricardo Diaz DO Mar 23, 2018 12:37
--- NOTE | 2018-03-23 14:44 | PN ---
Date/Time of Note Date/Time of Note DATE: 03/23/18 TIME: 14:43 Assessment/Plan VTE Prophylaxis Risk score (from Ns)>0 risk: 3 SCD applied (from Ns): No SCD contraindicated: other Pharmacological prophylaxis: heparin Lines/Catheters IV [facility] Type [facility]from [facility] Saline Lock Assessment/Plan Hospital Course SUBJECTIVE: Denies any chest pain at this time. OBJECTIVE: Physical Exam General: Adequately build 73 year-old female lying in bed in no apparent distress. HEENT: Normocephalic, atraumatic. Eyes: Anicteric sclerae, conjunctivae clear. ENT: Nasal septum midline, oral mucosa moist. Neck supple, no JVD noticed. Respiratory: Bilaterally diminished breath sounds. No use of accessory muscles of respiration. Minimal basilar rails on the left side. Cardiovascular: S1, S2 heard. Regular rate and rhythm. Abdomen: Soft, nontender, and nondistended. Bowel sounds positive in all 4 quadrants. Genitourinary: Deferred. Extremities: No cyanosis, no clubbing, no edema. Peripheral pulses palpable. Neurologic: Cranial nerves II through XII grossly intact. The patient is awake, alert, and oriented. Skin: Normal skin turgor. No skin rashes. Labs & Vitals per chart ASSESSMENT & PLAN This is a 73-year-old female with comorbidities including obstructive coronary artery disease who was recommended to have a CABG, diabetes mellitus type 2, diabetic neuropathy, hypertension, and peripheral vascular disease, who came to the emergency room with chief complaint of chest pain and right great toe pain along with aright great toe wound. The patient was admitted to inpatient setting for further treatment and evaluation. 1. Chest pain. -Known history of CAD. -Continue ASA. -Cardiology following. 2. Right great toe ulcer. -Continue local wound care. -Not likely infected. -Podiatry following. -As per podiatry, the ulceration is superficial and vascular surgery input appreciated. 3. DM type 2. -Continue SSI with basal and premeal insulin. -A1C 8.8. 4. Hypertension. -Continue antihypertensives. 5. Peripheral vascular disease. -Continue antiplatelet therapy. -Vascular consult. -Vascular surgery recommending right lower extremity angiogram. 6. Dyslipidemia. -Continue statins. 7. Diabetic neuropathy. -Continue gabapentin. 8. Ischemic cardiomyopathy EF in the lower limits of normal (50%). -Continue beta-blockers and ARBs. 9. Fluids, electrolytes, and nutrition. -Carbohydrate controlled diet. 10. DVT prophylaxis. -Subcutaneous heparin. 11. Plan. -Continue current management. -Await further cardiology and vascular surgery recommendations. The patient was seen in collaboration with Dr. Ruiz. Result Diagram: 03/23/18 0456 03/23/18 0456 Results 24hrs Laboratory Tests Test 03/22/18 17:21 03/22/18 20:48 03/23/18 02:40 03/23/18 04:56 Bedside Glucose 217 236 H 214 White Blood Count 7.7 Red Blood Count 4.39 Hemoglobin 11.5 L Hematocrit 35.7 L Mean Corpuscular 81.3 L Volume Mean Corpuscular 26.2 L Hemoglobin Mean Corpuscular 32.2 Hemoglobin Concent Red Cell 13.1 Distribution Width Platelet Count 308 Mean Platelet Volume 11.0 H Immature 0.300 Granulocytes % Neutrophils % 54.1 Lymphocytes % 33.0 Monocytes % 7.0 Eosinophils % 4.7 Basophils % 0.9 Nucleated Red Blood 0.0 Cells % Immature 0.020 Granulocytes # Neutrophils # 4.2 Lymphocytes # 2.6 Monocytes # 0.5 Eosinophils # 0.4 Basophils # 0.1 Nucleated Red Blood 0.0 Cells # Sodium Level 140 Potassium Level 4.0 Chloride Level 107 Carbon Dioxide Level 23 Anion Gap 10 Blood Urea Nitrogen 16 Creatinine 0.58 Est Glomerular Filtrat Rate mL/min Glucose Level 168 Calcium Level 9.5 Phosphorus Level 3.9 Magnesium Level 1.8 Test 03/23/18 06:34 03/23/18 07:50 03/23/18 11:42 Bedside Glucose 131 163 257 H Exam/Review of Systems Vital Signs Vitals Vital Signs Date Temp Pulse Resp B/P (MAP) Pulse Ox O2 O2 Flow FiO2 Time Delivery Rate 03/23/18 72 12:14 03/23/18 98.1 20 121/63 96 Room Air 11:15 (82) Intake and Output 03/22/18 03/22/18 03/23/18 1414:59 22:59 06:59 IntakeIntake Total 920 ml 400 ml BalanceBalance 920 ml 400 ml Medications Medications Current Medications Aspirin (Halfprin) 81 mg DAILY PO Last administered on 03/23/18at 08:32; Admin Dose 81 MG; Start 03/21/18 at 09:00 Atorvastatin Calcium (Lipitor) 40 mg DAILY@21 PO Last administered on 03/22/18at 20:42; Admin Dose 40 MG; Start 03/21/18 at 21:00 Buspirone HCl (Buspar) 5 mg BID PO Last administered on 03/23/18 08:32; Admin Dose 5 MG; Start 03/21/18 at 09:00 Losartan Potassium (Cozaar) 100 mg DAILY PO Last administered on 03/23/18 08:32; Admin Dose 100 MG; Start 03/21/18 at 09:00 Mometasone Furoate (Asmanex) 1 puff Q12H INH Last administered on 03/23/18 08:34; Admin Dose 1 PUFF; Start 03/21/18 at 09:00 IV Flush (NS 3 ml) 3 ml PER PROTOCOL IV ; Start 03/20/18 at 23:00 Ondansetron HCl (Zofran Tab) 4 mg Q6H PRN PO NAUSEA AND/OR VOMITING; Start 03/20/18 at 23:00 Nitroglycerin (Nitroglycerin (Sl Tab) 0.4 Mg) 1 tab Q5M PRN SL CHEST PAIN; Start 03/20/18 at 23:00 Acetaminophen (Tylenol Tab) 650 mg Q6H PRN PO PAIN LEVEL 1-3 OR FEVER; Start 03/20/18 at 23:00 Docusate Sodium (Colace) 100 mg Q12H PRN PO CONSTIPATION; Start 03/20/18 at 23:00 Bisacodyl (Dulcolax) 5 mg DAILY PRN PO CONSTIPATION; Start 03/20/18 at 23:00 Heparin Sodium (Porcine) (Heparin (5000 Units/1ml)) 5,000 unit Q8 SC Last administered on 03/23/18at 13:54; Admin Dose 5,000 UNIT; Start 03/20/18 at 23:00 Diagnostic Test (Pha) (Accu-Chek) 1 ea 02 XX Last administered on 03/23/18at 02:41; Admin Dose 1 EA; Start 03/22/18 at 02:00 Insulin Aspart (Novolog Insulin Pen) NOVOLOG *MILD* ALGORITHM WITH MEALS BEDTIME SC Last administered on 03/23/18at 12:32; Admin Dose 3 UNIT; Start 03/21/18 at 08:00 Hydralazine HCl (Apresoline) 10 mg Q6H PRN PO ELEVATED BLOOD PRESSURE; Start 03/21/18 at 02:30 Miscellaneous Information 1 ea NOTE XX ; Start 03/21/18 at 02:30 Glucose (Glutose) 15 gm Q15M PRN PO DECREASED GLUCOSE; Start 03/21/18 at 02:30 Glucose (Glutose) 22.5 gm Q15M PRN PO DECREASED GLUCOSE; Start 03/21/18 at 02:30 Dextrose (D50w Syringe) 25 ml Q15M PRN IV DECREASED GLUCOSE; Start 03/21/18 at 02:30 Dextrose (D50w Syringe) 50 ml Q15M PRN IV DECREASED GLUCOSE; Start 03/21/18 at 02:30 Glucagon (Glucagen) 1 mg Q15M PRN IM DECREASED GLUCOSE; Start 03/21/18 at 02:30 Glucose (Glutose) 15 gm Q15M PRN BUCCAL DECREASED GLUCOSE; Start 03/21/18 at 02:30 Gabapentin (Neurontin) 300 mg DAILY PO Last administered on 03/23/18at 08:32; Admin Dose 300 MG; Start 03/21/18 at 09:00 Loratadine (Claritin) 10 mg DAILY PO Last administered on 03/23/18at 08:33; Admin Dose 10 MG; Start 03/21/18 at 09:00 Amlodipine Besylate (Norvasc) 5 mg DAILY PO Last administered on 03/23/18at 08:32; Admin Dose 5 MG; Start 03/22/18 at 09:00 Metoprolol Tartrate (Lopressor) 50 mg BID PO Last administered on 03/23/18at 08:33; Admin Dose 50 MG; Start 03/21/18 at 21:00 Isosorbide Dinitrate (Isordil) 5 mg TID PO Last administered on 03/23/18 13:45; Admin Dose 5 MG; Start 03/21/18 at 13:00 Collagenase (Santyl) 1 applic DAILY TOP Last administered on 03/23/18 08:34; Admin Dose 1 APPLIC; Start 03/22/18 at 09:00 BARBARA GALLARDO NP Mar 23, 2018 14:44
[2018-03-23] MEDS: ACETAMINOPHEN 325 MG TAB PO PRN (17:25)
[2018-03-23] MEDS: ATORVASTATIN 40 MG TAB PO SCH (20:30)
[2018-03-24] VITALS (12 sets, daily range): BP systolic 107–136; BP diastolic 52–65; PULSE 57–85; RESP 18
[2018-03-24] MEDS: ACCU-CHEK XX SCH (02:38)
[2018-03-24] MEDS: HEPARIN 5,000 UNIT/1 ML VIAL SC SCH ×2 (05:37→13:42)
[2018-03-24] MEDS: INSULIN ASPART [NOVOLOG] 3 ML PEN SC SCH ×5 (08:32→22:03)
[2018-03-24] MEDS: BUSPIRONE 5 MG TAB PO SCH ×2 (08:54→20:38)
[2018-03-24] MEDS: COLLAGENASE 5 GM (UD JAR) TOP SCH (08:54)
[2018-03-24] MEDS: AMLODIPINE 5 MG TAB PO SCH (08:54)
[2018-03-24] MEDS: CHOLECALCIFEROL 1,000 UNIT TAB PO SCH (08:55)
[2018-03-24] MEDS: METOPROLOL 50 MG TAB PO SCH ×2 (08:55→20:38)
[2018-03-24] MEDS: ASPIRIN (EC) 81 MG TAB PO SCH (08:55)
[2018-03-24] MEDS: LORATADINE 10 MG TAB PO SCH (08:55)
[2018-03-24] MEDS: ISOSORBIDE DINITRATE 5 MG TAB PO SCH ×3 (08:55→20:37)
[2018-03-24] MEDS: MOMETASONE 0.24 GM INHALER INH SCH (08:56)
[2018-03-24] MEDS: GABAPENTIN 300 MG CAP PO SCH (08:56)
[2018-03-24] MEDS: LOSARTAN 50 MG TAB PO SCH (08:56)
--- NOTE | 2018-03-24 11:49 | PN ---
Date/Time of Note Date/Time of Note DATE: 03/24/18 TIME: 11:46 Assessment/Plan VTE Prophylaxis Risk score (from Ns)>0 risk: 3 SCD applied (from Ns): No SCD contraindicated: low risk/ambulating Pharmacological prophylaxis: LMWH Lines/Catheters [facility] Saline Lock Assessment/Plan Hospital Course Assessment and plan 1. Chest pain, rule out ACS. Troponins negative. Stable observe 2. Chronic coronary disease/multivessel, recommended CABG refused. Visited all of you. Of which those results records are still pending. Continue medical management 3. Diabetes A1c 8.8 not at goal 4. Hypertension 5. DJD osteoporosis? 6. Peripheral artery disease, patient will require an angiogram 7. Right first toe ulcer likely ischemic 8. Intermittent claudication? 9. Ftt; pt; +/ snf soon Subjective: Events noted Objective: Vital signs stable sinus rhythm Physical exam No pallor adenopathy JVD Regular no murmur gallop Clear Benign no bruits Dimin pulses bilaterally Result Diagram: 03/24/18 0501 03/24/18 0501 Results 24hrs Laboratory Tests Test 03/23/18 17:23 03/23/18 19:48 03/24/18 02:33 03/24/18 05:01 Bedside Glucose 180 297 H 210 White Blood Count 7.1 Red Blood Count 4.60 Hemoglobin 12.0 Hematocrit 37.2 Mean Corpuscular 80.9 L Volume Mean Corpuscular 26.1 L Hemoglobin Mean Corpuscular 32.3 Hemoglobin Concent Red Cell 13.2 Distribution Width Platelet Count 307 Mean Platelet Volume 11.3 H Immature 0.400 Granulocytes % Neutrophils % 50.8 Lymphocytes % 36.2 Monocytes % 6.5 Eosinophils % 5.0 Basophils % 1.1 Nucleated Red Blood 0.0 Cells % Immature 0.030 Granulocytes # Neutrophils # 3.6 Lymphocytes # 2.6 Monocytes # 0.5 Eosinophils # 0.4 Basophils # 0.1 Nucleated Red Blood 0.0 Cells # Sodium Level 137 Potassium Level 4.5 Chloride Level 106 Carbon Dioxide Level 23 Anion Gap 8 Blood Urea Nitrogen 18 Creatinine 0.55 Est Glomerular Filtrat Rate mL/min Glucose Level 224 H Calcium Level 9.5 Phosphorus Level 4.5 Magnesium Level 1.9 Iron Level 119 Total Iron Binding 312 Capacity Percent Iron 38 Saturation Ferritin 96.2 Test 03/24/18 08:21 Bedside Glucose 206 Exam/Review of Systems Vital Signs Vitals Vital Signs Date Temp Pulse Resp B/P (MAP) Pulse Ox O2 O2 Flow FiO2 Time Delivery Rate 03/24/18 62 09:11 03/24/18 98.1 18 136/62 96 07:27 (86) 03/23/18 Room Air 16:00 Intake and Output 03/23/18 03/23/18 03/24/18 1515:00 23:00 07:00 IntakeIntake Total 945 ml 800 ml BalanceBalance 945 ml 800 ml Medications Medications Current Medications Aspirin (Halfprin) 81 mg DAILY PO Last administered on 03/24/18at 08:55; Admin Dose 81 MG; Start 03/21/18 at 09:00 Atorvastatin Calcium (Lipitor) 40 mg DAILY@21 PO Last administered on 03/23/18at 20:30; Admin Dose 40 MG; Start 03/21/18 at 21:00 Buspirone HCl (Buspar) 5 mg BID PO Last administered on 03/24/18at 08:54; Admin Dose 5 MG; Start 03/21/18 at 09:00 Losartan Potassium (Cozaar) 100 mg DAILY PO Last administered on 03/24/18 08:56; Admin Dose 100 MG; Start 03/21/18 at 09:00 Mometasone Furoate (Asmanex) 1 puff Q12H INH Last administered on 03/24/18 08:56; Admin Dose 1 PUFF; Start 03/21/18 at 09:00 IV Flush (NS 3 ml) 3 ml PER PROTOCOL IV ; Start 03/20/18 at 23:00 Ondansetron HCl (Zofran Tab) 4 mg Q6H PRN PO NAUSEA AND/OR VOMITING; Start 03/20/18 at 23:00 Nitroglycerin (Nitroglycerin (Sl Tab) 0.4 Mg) 1 tab Q5M PRN SL CHEST PAIN; Start 03/20/18 at 23:00 Acetaminophen (Tylenol Tab) 650 mg Q6H PRN PO PAIN LEVEL 1-3 OR FEVER Last administered on 03/23/18at 17:25; Admin Dose 650 MG; Start 03/20/18 at 23:00 Docusate Sodium (Colace) 100 mg Q12H PRN PO CONSTIPATION; Start 03/20/18 at 23:00 Bisacodyl (Dulcolax) 5 mg DAILY PRN PO CONSTIPATION; Start 03/20/18 at 23:00 Heparin Sodium (Porcine) (Heparin (5000 Units/1ml)) 5,000 unit Q8 SC Last administered on 03/24/18at 05:37; Admin Dose 5,000 UNIT; Start 03/20/18 at 23:00 Diagnostic Test (Pha) (Accu-Chek) 1 ea 02 XX Last administered on 03/24/18at 02:38; Admin Dose 1 EA; Start 03/22/18 at 02:00 Insulin Aspart (Novolog Insulin Pen) NOVOLOG *MILD* ALGORITHM WITH MEALS BEDTIME SC Last administered on 03/24/18at 08:32; Admin Dose 2 UNIT; Start 03/21/18 at 08:00 Hydralazine HCl (Apresoline) 10 mg Q6H PRN PO ELEVATED BLOOD PRESSURE; Start 03/21/18 at 02:30 Miscellaneous Information 1 ea NOTE XX ; Start 03/21/18 at 02:30 Glucose (Glutose) 15 gm Q15M PRN PO DECREASED GLUCOSE; Start 03/21/18 at 02:30 Glucose (Glutose) 22.5 gm Q15M PRN PO DECREASED GLUCOSE; Start 03/21/18 at 02:30 Dextrose (D50w Syringe) 25 ml Q15M PRN IV DECREASED GLUCOSE; Start 03/21/18 at 02:30 Dextrose (D50w Syringe) 50 ml Q15M PRN IV DECREASED GLUCOSE; Start 03/21/18 at 02:30 Glucagon (Glucagen) 1 mg Q15M PRN IM DECREASED GLUCOSE; Start 03/21/18 at 02:30 Glucose (Glutose) 15 gm Q15M PRN BUCCAL DECREASED GLUCOSE; Start 03/21/18 at 02:30 Gabapentin (Neurontin) 300 mg DAILY PO Last administered on 03/24/18at 08:56; Admin Dose 300 MG; Start 03/21/18 at 09:00 Loratadine (Claritin) 10 mg DAILY PO Last administered on 03/24/18at 08:55; Admin Dose 10 MG; Start 03/21/18 at 09:00 Amlodipine Besylate (Norvasc) 5 mg DAILY PO Last administered on 03/24/18at 08:54; Admin Dose 5 MG; Start 03/22/18 at 09:00 Metoprolol Tartrate (Lopressor) 50 mg BID PO Last administered on 03/24/18 08:55; Admin Dose 50 MG; Start 03/21/18 at 21:00 Isosorbide Dinitrate (Isordil) 5 mg TID PO Last administered on 03/24/18 08:55; Admin Dose 5 MG; Start 03/21/18 at 13:00 Collagenase (Santyl) 1 applic DAILY TOP Last administered on 03/24/18 08:54; Admin Dose 1 APPLIC; Start 03/22/18 at 09:00 Cholecalciferol (Vitamin D) 1,000 unit DAILY PO Last administered on 03/24/18 08:55; Admin Dose 1,000 UNIT; Start 03/24/18 at 09:00 SAUL POWELL MD Mar 24, 2018 11:49
--- NOTE | 2018-03-24 15:41 | CONS ---
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 On further questioning, she also complains of exertional chest pain. This is been ongoing for over a year. -Continue aspirin and statin therapy, beta-itzel, nitroglycerin as tolerated. -Patient did have a coronary angiogram performed at our facility in June 2017 in the setting of mildly elevated troponin. Patient with severe triple vessel obstructive coronary artery disease and recommendations were for coronary artery bypass grafting. -I did speak to the patient again today with a library technical assistant and daughter at bedside. It appears patient did go to [facility] for evaluation but patient was not seen, as per the patient, because of insurance reasons. She never followed up after that and stop all of her medicines at least 6 months ago. I did discuss with the patient importance of medication compliance and medical follow- up. Will request CT surgery to evaluate the patient, possibly as an inpatient. -Continue concomitant vascular evaluation. Result Diagram: 03/24/18 0501 03/24/18 0501 Results 24hrs Laboratory Tests Test 03/23/18 17:23 03/23/18 19:48 03/24/18 02:33 03/24/18 05:01 Bedside Glucose 180 297 H 210 White Blood Count 7.1 Red Blood Count 4.60 Hemoglobin 12.0 Hematocrit 37.2 Mean Corpuscular 80.9 L Volume Mean Corpuscular 26.1 L Hemoglobin Mean Corpuscular 32.3 Hemoglobin Concent Red Cell 13.2 Distribution Width Platelet Count 307 Mean Platelet Volume 11.3 H Immature 0.400 Granulocytes % Neutrophils % 50.8 Lymphocytes % 36.2 Monocytes % 6.5 Eosinophils % 5.0 Basophils % 1.1 Nucleated Red Blood 0.0 Cells % Immature 0.030 Granulocytes # Neutrophils # 3.6 Lymphocytes # 2.6 Monocytes # 0.5 Eosinophils # 0.4 Basophils # 0.1 Nucleated Red Blood 0.0 Cells # Sodium Level 137 Potassium Level 4.5 Chloride Level 106 Carbon Dioxide Level 23 Anion Gap 8 Blood Urea Nitrogen 18 Creatinine 0.55 Est Glomerular Filtrat Rate mL/min Glucose Level 224 H Calcium Level 9.5 Phosphorus Level 4.5 Magnesium Level 1.9 Iron Level 119 Total Iron Binding 312 Capacity Percent Iron 38 Saturation Ferritin 96.2 Test 03/24/18 08:21 03/24/18 12:09 Bedside Glucose 206 202 Consultation Date/Type/Reason Admit Date/Time Mar 22, 2018 at 20:41 Initial Consult Date 03/22/18 Type of Consult cv Requesting Provider: NICK SALEH DPM 24 HR Interval Summary Free Text/Dictation Patient seen and examined. Denies any chest pain or shortness of breath currently Exam/Review of Systems Vital Signs Vitals Vital Signs Date Temp Pulse Resp B/P (MAP) Pulse Ox O2 O2 Flow FiO2 Time Delivery Rate 03/24/18 98.1 69 18 110/65 97 12:03 (80) 03/23/18 Room Air 16:00 Intake and Output 03/23/18 03/23/18 03/24/18 1414:59 22:59 06:59 IntakeIntake Total 945 ml 800 ml BalanceBalance 945 ml 800 ml Exam No apparent distress Constitutional: alert, oriented Head: normocephalic Respiratory: clear to auscultation, normal air movement Cardiovascular: regular rate and rhythm, other (S1-S2 heard) Gastrointestinal: soft, non-tender, bowel sounds Extremities: other (No significant edema) Medications Medications Current Medications Aspirin (Halfprin) 81 mg DAILY PO Last administered on 03/24/18at 08:55; Admin Dose 81 MG; Start 03/21/18 at 09:00 Atorvastatin Calcium (Lipitor) 40 mg DAILY@21 PO Last administered on 03/23/18at 20:30; Admin Dose 40 MG; Start 03/21/18 at 21:00 Buspirone HCl (Buspar) 5 mg BID PO Last administered on 03/24/18at 08:54; Admin Dose 5 MG; Start 03/21/18 at 09:00 Losartan Potassium (Cozaar) 100 mg DAILY PO Last administered on 03/24/18 08:56; Admin Dose 100 MG; Start 03/21/18 at 09:00 Mometasone Furoate (Asmanex) 1 puff Q12H INH Last administered on 03/24/18at 08:56; Admin Dose 1 PUFF; Start 03/21/18 at 09:00 IV Flush (NS 3 ml) 3 ml PER PROTOCOL IV ; Start 03/20/18 at 23:00 Ondansetron HCl (Zofran Tab) 4 mg Q6H PRN PO NAUSEA AND/OR VOMITING; Start 03/20/18 at 23:00 Nitroglycerin (Nitroglycerin (Sl Tab) 0.4 Mg) 1 tab Q5M PRN SL CHEST PAIN; Start 03/20/18 at 23:00 Acetaminophen (Tylenol Tab) 650 mg Q6H PRN PO PAIN LEVEL 1-3 OR FEVER Last administered on 03/23/18at 17:25; Admin Dose 650 MG; Start 03/20/18 at 23:00 Docusate Sodium (Colace) 100 mg Q12H PRN PO CONSTIPATION; Start 03/20/18 at 23:00 Bisacodyl (Dulcolax) 5 mg DAILY PRN PO CONSTIPATION; Start 03/20/18 at 23:00 Heparin Sodium (Porcine) (Heparin (5000 Units/1ml)) 5,000 unit Q8 SC Last administered on 03/24/18at 13:42; Admin Dose 5,000 UNIT; Start 03/20/18 at 23:00 Diagnostic Test (Pha) (Accu-Chek) 1 ea 02 XX Last administered on 03/24/18at 02:38; Admin Dose 1 EA; Start 03/22/18 at 02:00 Insulin Aspart (Novolog Insulin Pen) NOVOLOG *MILD* ALGORITHM WITH MEALS BEDTIME SC Last administered on 03/24/18at 12:24; Admin Dose 2 UNIT; Start 03/21/18 at 08:00 Hydralazine HCl (Apresoline) 10 mg Q6H PRN PO ELEVATED BLOOD PRESSURE; Start 03/21/18 at 02:30 Miscellaneous Information 1 ea NOTE XX ; Start 03/21/18 at 02:30 Glucose (Glutose) 15 gm Q15M PRN PO DECREASED GLUCOSE; Start 03/21/18 at 02:30 Glucose (Glutose) 22.5 gm Q15M PRN PO DECREASED GLUCOSE; Start 03/21/18 at 02:30 Dextrose (D50w Syringe) 25 ml Q15M PRN IV DECREASED GLUCOSE; Start 03/21/18 at 02:30 Dextrose (D50w Syringe) 50 ml Q15M PRN IV DECREASED GLUCOSE; Start 03/21/18 at 02:30 Glucagon (Glucagen) 1 mg Q15M PRN IM DECREASED GLUCOSE; Start 03/21/18 at 02:30 Glucose (Glutose) 15 gm Q15M PRN BUCCAL DECREASED GLUCOSE; Start 03/21/18 at 02:30 Gabapentin (Neurontin) 300 mg DAILY PO Last administered on 03/24/18at 08:56; Admin Dose 300 MG; Start 03/21/18 at 09:00 Loratadine (Claritin) 10 mg DAILY PO Last administered on 03/24/18at 08:55; Admin Dose 10 MG; Start 03/21/18 at 09:00 Amlodipine Besylate (Norvasc) 5 mg DAILY PO Last administered on 03/24/18 08:54; Admin Dose 5 MG; Start 03/22/18 at 09:00 Metoprolol Tartrate (Lopressor) 50 mg BID PO Last administered on 03/24/18 08:55; Admin Dose 50 MG; Start 03/21/18 at 21:00 Isosorbide Dinitrate (Isordil) 5 mg TID PO Last administered on 03/24/18at 13:37; Admin Dose 5 MG; Start 03/21/18 at 13:00 Collagenase (Santyl) 1 applic DAILY TOP Last administered on 03/24/18 08:54; Admin Dose 1 APPLIC; Start 03/22/18 at 09:00 Cholecalciferol (Vitamin D) 1,000 unit DAILY PO Last administered on 03/24/18 08:55; Admin Dose 1,000 UNIT; Start 03/24/18 at 09:00 Insulin Aspart (Novolog Insulin Pen) 5 unit AC MEALS SC ; Start 03/24/18 at 17:30 Insulin Glargine (Lantus) 10 units DAILY@2000 SC ; Start 03/24/18 at 20:00 Ricardo Diaz DO Mar 24, 2018 15:41
[2018-03-24] MEDS: ATORVASTATIN 40 MG TAB PO SCH (20:39)
[2018-03-24] MEDS: INSULIN GLARGINE [LANTus] (100 UNITS/ML) SYG SC SCH (22:03)
[2018-03-24] MEDS: ACETAMINOPHEN 325 MG TAB PO PRN (23:16)
[2018-03-25] VITALS (13 sets, daily range): BP systolic 100–120; BP diastolic 51–66; PULSE 55–82; RESP 18
[2018-03-25] MEDS: HEPARIN 5,000 UNIT/1 ML VIAL SC SCH ×4 (00:18→22:34)
[2018-03-25] MEDS: ACCU-CHEK XX SCH (02:00)
[2018-03-25] MEDS: INSULIN ASPART [NOVOLOG] 3 ML PEN SC SCH ×7 (07:44→20:53)
[2018-03-25] MEDS: BUSPIRONE 5 MG TAB PO SCH ×2 (08:51→20:37)
[2018-03-25] MEDS: GABAPENTIN 300 MG CAP PO SCH (08:51)
[2018-03-25] MEDS: ISOSORBIDE DINITRATE 5 MG TAB PO SCH ×3 (08:51→20:37)
[2018-03-25] MEDS: ASPIRIN (EC) 81 MG TAB PO SCH (08:52)
[2018-03-25] MEDS: CHOLECALCIFEROL 1,000 UNIT TAB PO SCH (08:52)
[2018-03-25] MEDS: METOPROLOL 50 MG TAB PO SCH ×2 (08:52→20:38)
[2018-03-25] MEDS: COLLAGENASE 5 GM (UD JAR) TOP SCH (08:52)
[2018-03-25] MEDS: LORATADINE 10 MG TAB PO SCH (08:52)
[2018-03-25] MEDS: MOMETASONE 0.24 GM INHALER INH SCH ×4 (08:53→20:38)
--- NOTE | 2018-03-25 11:19 | PN ---
Date/Time of Note Date/Time of Note DATE: 03/25/18 TIME: 11:13 Assessment/Plan VTE Prophylaxis Risk score (from Ns)>0 risk: 5 SCD applied (from Ns): No SCD contraindicated: low risk/ambulating Pharmacological prophylaxis: heparin Lines/Catheters IV [facility] ([facility] [place] Assessment/Plan Assessment/Plan This is a 73-year-old female with comorbidities including obstructive coronary artery disease who was recommended to have a CABG, diabetes mellitus type 2, diabetic neuropathy, hypertension, and peripheral vascular disease, who came to the emergency room with chief complaint of chest pain and right great toe pain along with aright great toe wound. The patient was admitted to inpatient setting for further treatment and evaluation. 1. Chest pain with 3 vessel CAD -Known history of 3 vessel CAD per cath here 06/21/17 -Continue ASA. -Dr Diaz following - Will likely need CT surgery. - Records from [facility] requested, on the way. 2. Right great toe ulcer. -Continue local wound care. -Not likely infected, no Abx needed. -Podiatry following. -As per podiatry, the ulceration is superficial and vascular surgery input appreciated. 3. DM type 2. -Continue SSI with basal and premeal insulin. -A1C 8.8. 4. Hypertension. -Continue antihypertensives. 5. Peripheral vascular disease. -Continue antiplatelet therapy. -Vascular consult. -Vascular surgery recommending right lower extremity angiogram. 6. Dyslipidemia. -Continue statins. 7. Diabetic neuropathy. -Continue gabapentin. 8. Ischemic cardiomyopathy EF in the lower limits of normal (50%). -Continue beta-blockers and ARBs. 9. Fluids, electrolytes, and nutrition. -Carbohydrate controlled diet. 10. DVT prophylaxis. -Subcutaneous heparin. 11. Plan. -Continue current management. -Await further cardiology and vascular surgery recommendations. -If no inpatient CABG required, can discharge for outpatient surgical eval by Dr. Slade. Result Diagram: 03/25/18 0516 03/25/18 0516 Results 24hrs Laboratory Tests Test 03/24/18 12:09 03/24/18 17:33 03/24/18 21:03 03/25/18 05:16 Bedside Glucose 202 226 H 220 White Blood Count 7.3 Red Blood Count 4.49 Hemoglobin 12.0 Hematocrit 36.2 L Mean Corpuscular 80.6 L Volume Mean Corpuscular 26.7 L Hemoglobin Mean Corpuscular 33.1 Hemoglobin Concent Red Cell 13.3 Distribution Width Platelet Count 283 Mean Platelet Volume 11.2 H Immature 0.500 H Granulocytes % Neutrophils % 49.1 Lymphocytes % 37.5 Monocytes % 7.1 Eosinophils % 4.6 Basophils % 1.2 Nucleated Red Blood 0.0 Cells % Immature 0.040 H Granulocytes # Neutrophils # 3.6 Lymphocytes # 2.8 Monocytes # 0.5 Eosinophils # 0.3 Basophils # 0.1 Nucleated Red Blood 0.0 Cells # Prothrombin Time 12.7 Prothrombin Time 1.0 Ratio INR International 0.94 Normalized Ratio Sodium Level 136 Potassium Level 4.4 Chloride Level 105 Carbon Dioxide Level 22 Anion Gap 9 Blood Urea Nitrogen 21 H Creatinine 0.58 Est Glomerular Filtrat Rate mL/min Glucose Level 212 Calcium Level 9.4 Test 03/25/18 07:39 Bedside Glucose 193 Subjective 24 Hr Interval Summary Free Text/Dictation No major overnight events. Patient is ambulatory with some foot pain, not having any chest pain. Requesting [facility] records today Exam/Review of Systems Vital Signs Vitals Vital Signs Date Temp Pulse Resp B/P (MAP) Pulse Ox O2 O2 Flow FiO2 Time Delivery Rate 03/25/18 62 08:29 03/25/18 97.7 18 120/66 96 07:33 (84) 03/25/18 Room Air 04:41 Intake and Output 03/24/18 03/24/18 03/25/18 1515:00 23:00 07:00 IntakeIntake Total 250 ml 950 ml 240 ml BalanceBalance 250 ml 950 ml 240 ml Exam General: Adequately build 73 year-old female lying in bed in no apparent distress. HEENT: Normocephalic, atraumatic. Eyes: Anicteric sclerae, conjunctivae clear. ENT: Nasal septum midline, oral mucosa moist. Neck supple, no JVD noticed. Respiratory: Bilaterally diminished breath sounds. No use of accessory muscles of respiration. Cardiovascular: S1, S2 heard. Regular rate and rhythm. Abdomen: Soft, nontender, and nondistended. Bowel sounds positive in all 4 quadrants. Genitourinary: Deferred. Extremities: No cyanosis, no clubbing, no edema. Peripheral pulses palpable. Skin: Normal skin turgor. No skin rashes. Medications Medications Current Medications Aspirin (Halfprin) 81 mg DAILY PO Last administered on 03/25/18 08:52; Admin Dose 81 MG; Start 03/21/18 at 09:00 Atorvastatin Calcium (Lipitor) 40 mg DAILY@21 PO Last administered on 03/24/18at 20:39; Admin Dose 40 MG; Start 03/21/18 at 21:00 Buspirone HCl (Buspar) 5 mg BID PO Last administered on 03/25/18 08:51; Admin Dose 5 MG; Start 03/21/18 at 09:00 Losartan Potassium (Cozaar) 100 mg DAILY PO Last administered on 03/24/18 08:56; Admin Dose 100 MG; Start 03/21/18 at 09:00 Mometasone Furoate (Asmanex) 1 puff Q12H INH Last administered on 03/25/18 08:53; Admin Dose 1 PUFF; Start 03/21/18 at 09:00 IV Flush (NS 3 ml) 3 ml PER PROTOCOL IV ; Start 03/20/18 at 23:00 Ondansetron HCl (Zofran Tab) 4 mg Q6H PRN PO NAUSEA AND/OR VOMITING; Start 03/20/18 at 23:00 Nitroglycerin (Nitroglycerin (Sl Tab) 0.4 Mg) 1 tab Q5M PRN SL CHEST PAIN; Start 03/20/18 at 23:00 Acetaminophen (Tylenol Tab) 650 mg Q6H PRN PO PAIN LEVEL 1-3 OR FEVER Last administered on 03/24/18at 23:16; Admin Dose 650 MG; Start 03/20/18 at 23:00 Docusate Sodium (Colace) 100 mg Q12H PRN PO CONSTIPATION; Start 03/20/18 at 23:00 Bisacodyl (Dulcolax) 5 mg DAILY PRN PO CONSTIPATION; Start 03/20/18 at 23:00 Heparin Sodium (Porcine) (Heparin (5000 Units/1ml)) 5,000 unit Q8 SC Last administered on 03/25/18at 06:46; Admin Dose 5,000 UNIT; Start 03/20/18 at 23:00 Diagnostic Test (Pha) (Accu-Chek) 1 ea 02 XX Last administered on 03/25/18at 02:00; Admin Dose 1 EA; Start 03/22/18 at 02:00 Insulin Aspart (Novolog Insulin Pen) NOVOLOG *MILD* ALGORITHM WITH MEALS BEDTIME SC Last administered on 03/25/18at 07:44; Admin Dose 2 UNIT; Start 03/21/18 at 08:00 Hydralazine HCl (Apresoline) 10 mg Q6H PRN PO ELEVATED BLOOD PRESSURE; Start 03/21/18 at 02:30 Miscellaneous Information 1 ea NOTE XX ; Start 03/21/18 at 02:30 Glucose (Glutose) 15 gm Q15M PRN PO DECREASED GLUCOSE; Start 03/21/18 at 02:30 Glucose (Glutose) 22.5 gm Q15M PRN PO DECREASED GLUCOSE; Start 03/21/18 at 02:30 Dextrose (D50w Syringe) 25 ml Q15M PRN IV DECREASED GLUCOSE; Start 03/21/18 at 02:30 Dextrose (D50w Syringe) 50 ml Q15M PRN IV DECREASED GLUCOSE; Start 03/21/18 at 02:30 Glucagon (Glucagen) 1 mg Q15M PRN IM DECREASED GLUCOSE; Start 03/21/18 at 02:30 Glucose (Glutose) 15 gm Q15M PRN BUCCAL DECREASED GLUCOSE; Start 03/21/18 at 02:30 Gabapentin (Neurontin) 300 mg DAILY PO Last administered on 03/25/18at 08:51; Admin Dose 300 MG; Start 03/21/18 at 09:00 Loratadine (Claritin) 10 mg DAILY PO Last administered on 03/25/18at 08:52; Admin Dose 10 MG; Start 03/21/18 at 09:00 Amlodipine Besylate (Norvasc) 5 mg DAILY PO Last administered on 03/24/18at 08:54; Admin Dose 5 MG; Start 03/22/18 at 09:00 Metoprolol Tartrate (Lopressor) 50 mg BID PO Last administered on 03/25/18 08:52; Admin Dose 50 MG; Start 03/21/18 at 21:00 Isosorbide Dinitrate (Isordil) 5 mg TID PO Last administered on 03/25/18at 08:51; Admin Dose 5 MG; Start 03/21/18 at 13:00 Collagenase (Santyl) 1 applic DAILY TOP Last administered on 03/25/18at 08:52; A dmin Dose 1 APPLIC; Start 03/22/18 at 09:00 Cholecalciferol (Vitamin D) 1,000 unit DAILY PO Last administered on 03/25/18at 08:52; Admin Dose 1,000 UNIT; Start 03/24/18 at 09:00 Insulin Aspart (Novolog Insulin Pen) 5 unit AC MEALS SC Last administered on 03/25/18at 07:44; Admin Dose 5 UNIT; Start 03/24/18 at 17:30 Insulin Glargine (Lantus) 10 units DAILY@2000 SC Last administered on 03/24/18at 22:03; Admin Dose 10 UNITS; Start 03/24/18 at 20:00 GREG THOMAS MD Mar 25, 2018 11:19
[2018-03-25] MEDS: AMLODIPINE 5 MG TAB PO SCH (11:23)
[2018-03-25] MEDS: LOSARTAN 50 MG TAB PO SCH (11:23)
--- NOTE | 2018-03-25 19:16 | CONS ---
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 On further questioning, she also complains of exertional chest pain. This is been ongoing for over a year. -Continue aspirin and statin therapy, beta-itzel, nitroglycerin as tolerated. -Patient did have a coronary angiogram performed at our facility in June 2017 in the setting of mildly elevated troponin. Patient with severe triple vessel obstructive coronary artery disease and recommendations were for coronary artery bypass grafting. -I did speak to the patient with a results engineer and daughter at bedside. It appears patient did go to [facility] for evaluation but patient was not seen, as per the patient, because of insurance reasons. She never followed up after that and stop all of her medicines at least 6 months ago. I did discuss with the patient importance of medication compliance and medical follow-up. I have requested CT surgery Dr. Gilbert, to once again see the patient -Given blood pressure on the lower side, would discontinue amlodipine. -Continue concomitant vascular evaluation. Result Diagram: 03/25/18 0516 03/25/18 0516 Results 24hrs Laboratory Tests Test 03/24/18 21:03 03/25/18 05:16 03/25/18 07:39 03/25/18 11:15 Bedside Glucose 220 193 274 H White Blood Count 7.3 Red Blood Count 4.49 Hemoglobin 12.0 Hematocrit 36.2 L Mean Corpuscular 80.6 L Volume Mean Corpuscular 26.7 L Hemoglobin Mean Corpuscular 33.1 Hemoglobin Concent Red Cell 13.3 Distribution Width Platelet Count 283 Mean Platelet Volume 11.2 H Immature 0.500 H Granulocytes % Neutrophils % 49.1 Lymphocytes % 37.5 Monocytes % 7.1 Eosinophils % 4.6 Basophils % 1.2 Nucleated Red Blood 0.0 Cells % Immature 0.040 H Granulocytes # Neutrophils # 3.6 Lymphocytes # 2.8 Monocytes # 0.5 Eosinophils # 0.3 Basophils # 0.1 Nucleated Red Blood 0.0 Cells # Prothrombin Time 12.7 Prothrombin Time 1.0 Ratio INR International 0.94 Normalized Ratio Sodium Level 136 Potassium Level 4.4 Chloride Level 105 Carbon Dioxide Level 22 Anion Gap 9 Blood Urea Nitrogen 21 H Creatinine 0.58 Est Glomerular Filtrat Rate mL/min Glucose Level 212 Calcium Level 9.4 Consultation Date/Type/Reason Admit Date/Time Mar 22, 2018 at 20:41 Initial Consult Date 03/22/18 Type of Consult cv Requesting Provider: NICK SALEH DPM 24 HR Interval Summary Free Text/Dictation Denies chest pain, shortness of breath or palpitations Exam/Review of Systems Vital Signs Vitals Vital Signs Date Temp Pulse Resp B/P (MAP) Pulse Ox O2 O2 Flow FiO2 Time Delivery Rate 03/25/18 69 16:29 03/25/18 98.3 18 104/51 97 15:37 (68) 03/25/18 Room Air 04:41 Intake and Output 03/24/18 03/24/18 03/25/18 1515:00 23:00 07:00 IntakeIntake Total 250 ml 950 ml 240 ml BalanceBalance 250 ml 950 ml 240 ml Exam No apparent distress Constitutional: alert, oriented Head: normocephalic Respiratory: clear to auscultation, normal air movement Cardiovascular: regular rate and rhythm, other (S1-S2 heard) Gastrointestinal: soft, non-tender, bowel sounds Extremities: other (No significant edema) Medications Medications Current Medications Aspirin (Halfprin) 81 mg DAILY PO Last administered on 03/25/18at 08:52; Admin Dose 81 MG; Start 03/21/18 at 09:00 Atorvastatin Calcium (Lipitor) 40 mg DAILY@21 PO Last administered on 03/24/18at 20:39; Admin Dose 40 MG; Start 03/21/18 at 21:00 Buspirone HCl (Buspar) 5 mg BID PO Last administered on 03/25/18 08:51; Admin Dose 5 MG; Start 03/21/18 at 09:00 Losartan Potassium (Cozaar) 100 mg DAILY PO Last administered on 03/25/18 11:23; Admin Dose 100 MG; Start 03/21/18 at 09:00 Mometasone Furoate (Asmanex) 1 puff Q12H INH Last administered on 03/25/18at 08:53; Admin Dose 1 PUFF; Start 03/21/18 at 09:00 IV Flush (NS 3 ml) 3 ml PER PROTOCOL IV ; Start 03/20/18 at 23:00 Ondansetron HCl (Zofran Tab) 4 mg Q6H PRN PO NAUSEA AND/OR VOMITING; Start 03/20/18 at 23:00 Nitroglycerin (Nitroglycerin (Sl Tab) 0.4 Mg) 1 tab Q5M PRN SL CHEST PAIN; Start 03/20/18 at 23:00 Acetaminophen (Tylenol Tab) 650 mg Q6H PRN PO PAIN LEVEL 1-3 OR FEVER Last administered on 03/24/18at 23:16; Admin Dose 650 MG; Start 03/20/18 at 23:00 Docusate Sodium (Colace) 100 mg Q12H PRN PO CONSTIPATION; Start 03/20/18 at 23:00 Bisacodyl (Dulcolax) 5 mg DAILY PRN PO CONSTIPATION; Start 03/20/18 at 23:00 Heparin Sodium (Porcine) (Heparin (5000 Units/1ml)) 5,000 unit Q8 SC Last administered on 03/25/18at 13:42; Admin Dose 5,000 UNIT; Start 03/20/18 at 23:00 Diagnostic Test (Pha) (Accu-Chek) 1 ea 02 XX Last administered on 03/25/18at 02:00; Admin Dose 1 EA; Start 03/22/18 at 02:00 Insulin Aspart (Novolog Insulin Pen) NOVOLOG *MILD* ALGORITHM WITH MEALS BEDTIME SC Last administered on 03/25/18at 17:14; Admin Dose 2 UNIT; Start 03/21/18 at 08:00 Hydralazine HCl (Apresoline) 10 mg Q6H PRN PO ELEVATED BLOOD PRESSURE; Start 03/21/18 at 02:30 Miscellaneous Information 1 ea NOTE XX ; Start 03/21/18 at 02:30 Glucose (Glutose) 15 gm Q15M PRN PO DECREASED GLUCOSE; Start 03/21/18 at 02:30 Glucose (Glutose) 22.5 gm Q15M PRN PO DECREASED GLUCOSE; Start 03/21/18 at 02:30 Dextrose (D50w Syringe) 25 ml Q15M PRN IV DECREASED GLUCOSE; Start 03/21/18 at 02:30 Dextrose (D50w Syringe) 50 ml Q15M PRN IV DECREASED GLUCOSE; Start 03/21/18 at 02:30 Glucagon (Glucagen) 1 mg Q15M PRN IM DECREASED GLUCOSE; Start 03/21/18 at 02:30 Glucose (Glutose) 15 gm Q15M PRN BUCCAL DECREASED GLUCOSE; Start 03/21/18 at 02:30 Gabapentin (Neurontin) 300 mg DAILY PO Last administered on 03/25/18 08:51; Admin Dose 300 MG; Start 03/21/18 at 09:00 Loratadine (Claritin) 10 mg DAILY PO Last administered on 03/25/18 08:52; Admin Dose 10 MG; Start 03/21/18 at 09:00 Amlodipine Besylate (Norvasc) 5 mg DAILY PO Last administered on 03/25/18 1 1:23; Admin Dose 5 MG; Start 03/22/18 at 09:00 Metoprolol Tartrate (Lopressor) 50 mg BID PO Last administered on 03/25/18 08:52; Admin Dose 50 MG; Start 03/21/18 at 21:00 Isosorbide Dinitrate (Isordil) 5 mg TID PO Last administered on 03/25/18 08:51; Admin Dose 5 MG; Start 03/21/18 at 13:00 Collagenase (Santyl) 1 applic DAILY TOP Last administered on 03/25/18 08:52; Admin Dose 1 APPLIC; Start 03/22/18 at 09:00 Cholecalciferol (Vitamin D) 1,000 unit DAILY PO Last administered on 03/25/18 08:52; Admin Dose 1,000 UNIT; Start 03/24/18 at 09:00 Insulin Aspart (Novolog Insulin Pen) 5 unit AC MEALS SC Last administered on 03/25/18 17:14; Admin Dose 5 UNIT; Start 03/24/18 at 17:30 Insulin Glargine (Lantus) 10 units DAILY@2000 SC Last administered on 03/24/18 22:03; Admin Dose 10 UNITS; Start 03/24/18 at 20:00 Ricardo Diaz DO Mar 25, 2018 19:16
[2018-03-25] MEDS: ATORVASTATIN 40 MG TAB PO SCH (20:37)
[2018-03-25] MEDS: INSULIN GLARGINE [LANTus] (100 UNITS/ML) SYG SC SCH (20:51)
[2018-03-26] VITALS (11 sets, daily range): BP systolic 104–133; BP diastolic 54–72; PULSE 58–78; RESP 16–18
[2018-03-26] MEDS: ACCU-CHEK XX SCH (02:00)
[2018-03-26] MEDS: HEPARIN 5,000 UNIT/1 ML VIAL SC SCH ×3 (06:10→21:30)
[2018-03-26] MEDS: INSULIN ASPART [NOVOLOG] 3 ML PEN SC SCH ×7 (07:43→20:44)
[2018-03-26] MEDS: MOMETASONE 0.24 GM INHALER INH SCH ×2 (08:09→20:44)
[2018-03-26] MEDS: CHOLECALCIFEROL 1,000 UNIT TAB PO SCH (08:10)
[2018-03-26] MEDS: LOSARTAN 50 MG TAB PO SCH (08:10)
[2018-03-26] MEDS: ASPIRIN (EC) 81 MG TAB PO SCH (08:11)
[2018-03-26] MEDS: LORATADINE 10 MG TAB PO SCH (08:11)
[2018-03-26] MEDS: ISOSORBIDE DINITRATE 5 MG TAB PO SCH ×3 (08:11→20:43)
[2018-03-26] MEDS: BUSPIRONE 5 MG TAB PO SCH ×2 (08:11→20:43)
[2018-03-26] MEDS: METOPROLOL 50 MG TAB PO SCH ×2 (08:11→20:43)
[2018-03-26] MEDS: COLLAGENASE 5 GM (UD JAR) TOP SCH (08:11)
[2018-03-26] MEDS: GABAPENTIN 300 MG CAP PO SCH (08:11)
--- NOTE | 2018-03-26 12:59 | PN ---
Date/Time of Note Date/Time of Note DATE: 03/26/18 TIME: 12:58 Assessment/Plan VTE Prophylaxis Risk score (from Nsg)>0 risk: 2 SCD applied (from Nsg): Yes Pharmacological prophylaxis: heparin Lines/Catheters IV Catheter Type (from Nrs): Saline Lock Assessment/Plan Hospital Course This is a 73-year-old female with comorbidities including obstructive coronary artery disease who was recommended to have a CABG, diabetes mellitus type 2, diabetic neuropathy, hypertension, and peripheral vascular disease, who came to the emergency room with chief complaint of chest pain and right great toe pain along with aright great toe wound. The patient was admitted to inpatient setting for further treatment and evaluation. Currently awaiting evaluation by vascular surgeon to guide plan of care. 1. Chest pain with 3 vessel CAD -Known history of 3 vessel CAD per cath here 06/21/17 -Continue ASA. -Dr Diaz following - Will likely need CT surgery. - Records from [facility] requested, on the way. 2. Right great toe ulcer. -Continue local wound care. -Not likely infected, no Abx needed. -Podiatry following. -As per podiatry, the ulceration is superficial and vascular surgery input appreciated. 3. DM type 2. -Continue SSI with basal and premeal insulin. -A1C 8.8. 4. Hypertension. -Continue antihypertensives. 5. Peripheral vascular disease. -Continue antiplatelet therapy. -Vascular consult. -Vascular surgery recommending right lower extremity angiogram. 6. Dyslipidemia. -Continue statins. 7. Diabetic neuropathy. -Continue gabapentin. 8. Ischemic cardiomyopathy EF in the lower limits of normal (50%). -Continue beta-blockers and ARBs. 9. Fluids, electrolytes, and nutrition. -Carbohydrate controlled diet. 10. DVT prophylaxis. -Subcutaneous heparin. 11. Plan. -Continue current management. -Await further cardiology and vascular surgery recommendations. -If no inpatient CABG required, can discharge for outpatient surgical eval by Dr. Slade. Result Diagram: 03/26/1814 03/26/1814 Results 24hrs Laboratory Tests Test 03/25/18 20:33 03/26/18 02:44 03/26/18 07:34 03/26/18 08:14 Bedside Glucose 196 210 173 White Blood Count 8.0 Red Blood Count 4.70 Hemoglobin 12.2 Hematocrit 37.6 Mean Corpuscular 80.0 L Volume Mean Corpuscular 26.0 L Hemoglobin Mean Corpuscular 32.4 Hemoglobin Concent Red Cell 13.2 Distribution Width Platelet Count 312 Mean Platelet Volume 10.6 H Immature 0.400 Granulocytes % Neutrophils % 57.5 Lymphocytes % 30.9 Monocytes % 6.4 Eosinophils % 3.7 Basophils % 1.1 Nucleated Red Blood 0.0 Cells % Immature 0.030 Granulocytes # Neutrophils # 4.6 Lymphocytes # 2.5 Monocytes # 0.5 Eosinophils # 0.3 Basophils # 0.1 Nucleated Red Blood 0.0 Cells # Prothrombin Time 13.1 Prothrombin Time 1.0 Ratio INR International 0.98 Normalized Ratio Activated 53.1 H Partial Thromboplast Time Sodium Level 141 Potassium Level 4.3 Chloride Level 105 Carbon Dioxide Level 23 Anion Gap 13 Blood Urea Nitrogen 19 Creatinine 0.49 Est Glomerular Filtrat Rate mL/min Glucose Level 183 Calcium Level 9.6 Test 03/26/18 11:08 Bedside Glucose 276 H Subjective 24 Hr Interval Summary Free Text/Dictation Comfortable, no complaints Awaiting vascular evaluation Exam/Review of Systems Vital Signs Vitals Vital Signs Date Temp Pulse Resp B/P (MAP) Pulse Ox O2 O2 Flow FiO2 Time Delivery Rate 03/26/18 98.0 78 18 107/56 98 11:22 (73) 03/25/18 Room Air 04:41 Intake and Output 03/25/18 03/25/18 03/26/18 1515:00 23:00 07:00 IntakeIntake Total 1200 ml 720 ml BalanceBalance 1200 ml 720 ml Exam Comfortable appearing RRR CTAB R great toe with ulceration, no surrounding cellulitis Medications Medications Current Medications Aspirin (Halfprin) 81 mg DAILY PO Last administered on 03/26/18at 08:11; Admin Dose 81 MG; Start 03/21/18 at 09:00 Atorvastatin Calcium (Lipitor) 40 mg DAILY@21 PO Last administered on 03/25/18at 20:37; Admin Dose 40 MG; Start 03/21/18 at 21:00 Buspirone HCl (Buspar) 5 mg BID PO Last administered on 03/26/18at 08:11; Admin Dose 5 MG; Start 03/21/18 at 09:00 Losartan Potassium (Cozaar) 100 mg DAILY PO Last administered on 03/26/18at 08:10; Admin Dose 100 MG; Start 03/21/18 at 09:00 Mometasone Furoate (Asmanex) 1 puff Q12H INH Last administered on 03/26/18at 08:09; Admin Dose 1 PUFF; Start 03/21/18 at 09:00 IV Flush (NS 3 ml) 3 ml PER PROTOCOL IV ; Start 03/20/18 at 23:00 Ondansetron HCl (Zofran Tab) 4 mg Q6H PRN PO NAUSEA AND/OR VOMITING; Start 03/20/18 at 23:00 Nitroglycerin (Nitroglycerin (Sl Tab) 0.4 Mg) 1 tab Q5M PRN SL CHEST PAIN; Start 03/20/18 at 23:00 Acetaminophen (Tylenol Tab) 650 mg Q6H PRN PO PAIN LEVEL 1-3 OR FEVER Last administered on 03/24/18at 23:16; Admin Dose 650 MG; Start 03/20/18 at 23:00 Docusate Sodium (Colace) 100 mg Q12H PRN PO CONSTIPATION; Start 03/20/18 at 23:00 Bisacodyl (Dulcolax) 5 mg DAILY PRN PO CONSTIPATION; Start 03/20/18 at 23:00 Heparin Sodium (Porcine) (Heparin (5000 Units/1ml)) 5,000 unit Q8 SC Last administered on 03/26/18at 06:10; Admin Dose 5,000 UNIT; Start 03/20/18 at 23:00 Diagnostic Test (Pha) (Accu-Chek) 1 ea 02 XX Last administered on 03/25/18at 02:00; Admin Dose 1 EA; Start 03/22/18 at 02:00 Insulin Aspart (Novolog Insulin Pen) NOVOLOG *MILD* ALGORITHM WITH MEALS BEDTIME SC Last administered on 03/26/18at 11:19; Admin Dose 4 UNIT; Start 03/21/18 at 08:00 Hydralazine HCl (Apresoline) 10 mg Q6H PRN PO ELEVATED BLOOD PRESSURE; Start 03/21/18 at 02:30 Miscellaneous Information 1 ea NOTE XX ; Start 03/21/18 at 02:30 Glucose (Glutose) 15 gm Q15M PRN PO DECREASED GLUCOSE; Start 03/21/18 at 02:30 Glucose (Glutose) 22.5 gm Q15M PRN PO DECREASED GLUCOSE; Start 03/21/18 at 02:30 Dextrose (D50w Syringe) 25 ml Q15M PRN IV DECREASED GLUCOSE; Start 03/21/18 at 02:30 Dextrose (D50w Syringe) 50 ml Q15M PRN IV DECREASED GLUCOSE; Start 03/21/18 at 02:30 Glucagon (Glucagen) 1 mg Q15M PRN IM DECREASED GLUCOSE; Start 03/21/18 at 02:30 Glucose (Glutose) 15 gm Q15M PRN BUCCAL DECREASED GLUCOSE; Start 03/21/18 at 02:30 Gabapentin (Neurontin) 300 mg DAILY PO Last administered on 03/26/18 08:11; Admin Dose 300 MG; Start 03/21/18 at 09:00 Loratadine (Claritin) 10 mg DAILY PO Last administered on 03/26/18 08:11; Admin Dose 10 MG; Start 03/21/18 at 09:00 Metoprolol Tartrate (Lopressor) 50 mg BID PO Last administered on 03/26/18 08:11; Admin Dose 50 MG; Start 03/21/18 at 21:00 Isosorbide Dinitrate (Isordil) 5 mg TID PO Last administered on 03/26/18 08:11; Admin Dose 5 MG; Start 03/21/18 at 13:00 Collagenase (Santyl) 1 applic DAILY TOP Last administered on 03/26/18 08:11; Admin Dose 1 APPLIC; Start 03/22/18 at 09:00 Cholecalciferol (Vitamin D) 1,000 unit DAILY PO Last administered on 03/26/18 08:10; Admin Dose 1,000 UNIT; Start 03/24/18 at 09:00 Insulin Aspart (Novolog Insulin Pen) 5 unit AC MEALS SC Last administered on 03/26/18 11:18; Admin Dose 5 UNIT; Start 03/24/18 at 17:30 Insulin Glargine (Lantus) 10 units DAILY@2000 SC Last administered on 03/25/18at 20:51; Admin Dose 10 UNITS; Start 03/24/18 at 20:00 RAJAT LOYA MD Mar 26, 2018 12:59
--- NOTE | 2018-03-26 18:18 | CONS ---
Date/Time of Note Date/Time of Note DATE: 03/26/18 TIME: 18:16 Assessment/Plan Assessment/Plan Assessment/Plan Right foot pain with wound Peripheral arterial disease Obstructive CAD Stable angina Diabetes Hypertension Cardia myopathy with ejection fraction 50% -Continue aspirin and statin therapy, beta-itzel, nitroglycerin as tolerated. -Patient did have a coronary angiogram performed at our facility in June 2017 in the setting of mildly elevated troponin. Patient with severe triple vessel obstructive coronary artery disease and recommendations were for coronary artery bypass grafting. -I did speak to the patient with a lead person and daughter at bedside. It appears patient did go to [facility] for evaluation but patient was not seen, as per the patient, because of insurance reasons. She never followed up after that and stop all of her medicines at least 6 months ago. I did discuss with the patient importance of medication compliance and medical follow-up. I have requested CT surgery Dr. Gilbert, to once again see the patient -Given negative cardiac enzymes and no symptoms of chest pain, surgical coronary revascularization can be done as an outpatient. Result Diagram: 03/26/18 0814 03/26/18 0814 Results 24hrs Laboratory Tests Test 03/25/18 20:33 03/26/18 02:44 03/26/18 07:34 03/26/18 08:14 Bedside Glucose 196 210 173 White Blood Count 8.0 Red Blood Count 4.70 Hemoglobin 12.2 Hematocrit 37.6 Mean Corpuscular 80.0 L Volume Mean Corpuscular 26.0 L Hemoglobin Mean Corpuscular 32.4 Hemoglobin Concent Red Cell 13.2 Distribution Width Platelet Count 312 Mean Platelet Volume 10.6 H Immature 0.400 Granulocytes % Neutrophils % 57.5 Lymphocytes % 30.9 Monocytes % 6.4 Eosinophils % 3.7 Basophils % 1.1 Nucleated Red Blood 0.0 Cells % Immature 0.030 Granulocytes # Neutrophils # 4.6 Lymphocytes # 2.5 Monocytes # 0.5 Eosinophils # 0.3 Basophils # 0.1 Nucleated Red Blood 0.0 Cells # Prothrombin Time 13.1 Prothrombin Time 1.0 Ratio INR International 0.98 Normalized Ratio Activated 53.1 H Partial Thromboplast Time Sodium Level 141 Potassium Level 4.3 Chloride Level 105 Carbon Dioxide Level 23 Anion Gap 13 Blood Urea Nitrogen 19 Creatinine 0.49 Est Glomerular Filtrat Rate mL/min Glucose Level 183 Calcium Level 9.6 Test 03/26/18 11:08 03/26/18 17:16 Bedside Glucose 276 H 196 Consultation Date/Type/Reason Admit Date/Time Mar 22, 2018 at 20:41 Initial Consult Date 03/22/18 Type of Consult cv Requesting Provider: NICK SALEH DPM 24 HR Interval Summary Free Text/Dictation Patient seen and examined. Denies chest pain or shortness of breath Exam/Review of Systems Vital Signs Vitals Vital Signs Date Temp Pulse Resp B/P (MAP) Pulse Ox O2 O2 Flow FiO2 Time Delivery Rate 03/26/18 61 16:00 03/26/18 98.1 17 104/72 98 15:28 (83) 03/25/18 Room Air 04:41 Intake and Output 03/25/18 03/25/18 03/26/18 1515:00 23:00 07:00 IntakeIntake Total 1200 ml 720 ml BalanceBalance 1200 ml 720 ml Exam Constitutional: alert, oriented Respiratory: clear to auscultation, normal air movement Cardiovascular: regular rate and rhythm, other (S1-S2 heard) Gastrointestinal: soft, non-tender, bowel sounds Extremities: other (No significant edema) Medications Medications Current Medications Aspirin (Halfprin) 81 mg DAILY PO Last administered on 03/26/18at 08:11; Admin Dose 81 MG; Start 03/21/18 at 09:00 Atorvastatin Calcium (Lipitor) 40 mg DAILY@21 PO Last administered on 03/25/18at 20:37; Admin Dose 40 MG; Start 03/21/18 at 21:00 Buspirone HCl (Buspar) 5 mg BID PO Last administered on 03/26/18at 08:11; Admin Dose 5 MG; Start 03/21/18 at 09:00 Losartan Potassium (Cozaar) 100 mg DAILY PO Last administered on 03/26/18at 08: 10; Admin Dose 100 MG; Start 03/21/18 at 09:00 Mometasone Furoate (Asmanex) 1 puff Q12H INH Last administered on 03/26/18at 08:09; Admin Dose 1 PUFF; Start 03/21/18 at 09:00 IV Flush (NS 3 ml) 3 ml PER PROTOCOL IV ; Start 03/20/18 at 23:00 Ondansetron HCl (Zofran Tab) 4 mg Q6H PRN PO NAUSEA AND/OR VOMITING; Start 03/20/18 at 23:00 Nitroglycerin (Nitroglycerin (Sl Tab) 0.4 Mg) 1 tab Q5M PRN SL CHEST PAIN; Start 03/20/18 at 23:00 Acetaminophen (Tylenol Tab) 650 mg Q6H PRN PO PAIN LEVEL 1-3 OR FEVER Last administered on 03/24/18at 23:16; Admin Dose 650 MG; Start 03/20/18 at 23:00 Docusate Sodium (Colace) 100 mg Q12H PRN PO CONSTIPATION; Start 03/20/18 at 23:00 Bisacodyl (Dulcolax) 5 mg DAILY PRN PO CONSTIPATION; Start 03/20/18 at 23:00 Heparin Sodium (Porcine) (Heparin (5000 Units/1ml)) 5,000 unit Q8 SC Last administered on 03/26/18at 13:27; Admin Dose 5,000 UNIT; Start 03/20/18 at 23:00 Diagnostic Test (Pha) (Accu-Chek) 1 ea 02 XX Last administered on 03/25/18at 02:00; Admin Dose 1 EA; Start 03/22/18 at 02:00 Insulin Aspart (Novolog Insulin Pen) NOVOLOG *MILD* ALGORITHM WITH MEALS BEDTIME SC Last administered on 03/26/18at 17:20; Admin Dose 2 UNIT; Start 03/21/18 at 08:00 Hydralazine HCl (Apresoline) 10 mg Q6H PRN PO ELEVATED BLOOD PRESSURE; Start 03/21/18 at 02:30 Miscellaneous Information 1 ea NOTE XX ; Start 03/21/18 at 02:30 Glucose (Glutose) 15 gm Q15M PRN PO DECREASED GLUCOSE; Start 03/21/18 at 02:30 Glucose (Glutose) 22.5 gm Q15M PRN PO DECREASED GLUCOSE; Start 03/21/18 at 02:30 Dextrose (D50w Syringe) 25 ml Q15M PRN IV DECREASED GLUCOSE; Start 03/21/18 at 02:30 Dextrose (D50w Syringe) 50 ml Q15M PRN IV DECREASED GLUCOSE; Start 03/21/18 at 02:30 Glucagon (Glucagen) 1 mg Q15M PRN IM DECREASED GLUCOSE; Start 03/21/18 at 02:30 Glucose (Glutose) 15 gm Q15M PRN BUCCAL DECREASED GLUCOSE; Start 03/21/18 at 02:30 Gabapentin (Neurontin) 300 mg DAILY PO Last administered on 03/26/18 08:11; Admin Dose 300 MG; Start 03/21/18 at 09:00 Loratadine (Claritin) 10 mg DAILY PO Last administered on 03/26/18 08:11; Admin Dose 10 MG; Start 03/21/18 at 09:00 Metoprolol Tartrate (Lopressor) 50 mg BID PO Last administered on 03/26/18 08:11; Admin Dose 50 MG; Start 03/21/18 at 21:00 Isosorbide Dinitrate (Isordil) 5 mg TID PO Last administered on 03/26/18 08:11 ; Admin Dose 5 MG; Start 03/21/18 at 13:00 Collagenase (Santyl) 1 applic DAILY TOP Last administered on 03/26/18 08:11; Admin Dose 1 APPLIC; Start 03/22/18 at 09:00 Cholecalciferol (Vitamin D) 1,000 unit DAILY PO Last administered on 03/26/18 08:10; Admin Dose 1,000 UNIT; Start 03/24/18 at 09:00 Insulin Aspart (Novolog Insulin Pen) 5 unit AC MEALS SC Last administered on 03/26/18 17:20; Admin Dose 5 UNIT; Start 03/24/18 at 17:30 Insulin Glargine (Lantus) 10 units DAILY@2000 SC Last administered on 03/25/18 20:51; Admin Dose 10 UNITS; Start 03/24/18 at 20:00 Ricardo Diaz DO Mar 26, 2018 18:18
[2018-03-26] MEDS: ACETAMINOPHEN 325 MG TAB PO PRN (20:43)
[2018-03-26] MEDS: ATORVASTATIN 40 MG TAB PO SCH (20:43)
[2018-03-26] MEDS: INSULIN GLARGINE [LANTus] (100 UNITS/ML) SYG SC SCH (20:52)
[2018-03-27] VITALS (9 sets, daily range): BP systolic 107–139; BP diastolic 55–66; PULSE 51–63; RESP 17–18
[2018-03-27] MEDS: ACCU-CHEK XX SCH (02:00)
[2018-03-27] MEDS: HEPARIN 5,000 UNIT/1 ML VIAL SC SCH ×2 (05:49→13:20)
[2018-03-27] MEDS: INSULIN ASPART [NOVOLOG] 3 ML PEN SC SCH ×6 (08:00→17:22)
[2018-03-27] MEDS: BUSPIRONE 5 MG TAB PO SCH (08:24)
[2018-03-27] MEDS: MOMETASONE 0.24 GM INHALER INH SCH (08:24)
[2018-03-27] MEDS: CHOLECALCIFEROL 1,000 UNIT TAB PO SCH (08:25)
[2018-03-27] MEDS: METOPROLOL 50 MG TAB PO SCH (08:25)
[2018-03-27] MEDS: ISOSORBIDE DINITRATE 5 MG TAB PO SCH ×2 (08:25→13:16)
[2018-03-27] MEDS: LORATADINE 10 MG TAB PO SCH (08:25)
[2018-03-27] MEDS: GABAPENTIN 300 MG CAP PO SCH (08:25)
[2018-03-27] MEDS: ASPIRIN (EC) 81 MG TAB PO SCH (08:25)
[2018-03-27] MEDS: COLLAGENASE 5 GM (UD JAR) TOP SCH (08:26)
[2018-03-27] MEDS ORDERED: LOSARTAN 50 MG TAB PO SCH (09:00)
--- NOTE | 2018-03-27 13:55 | PDOCDIS ---
Discharge Instructions CONDITION [id number] Patient Condition: [id number] Stable HOME CARE INSTRUCTIONS: [id number] Special Diet: [id number] DIABETIC DIET. ACTIVITY: [id number] Activity Restrictions: [id number] Slowly Increase Activity Avoid heavy lifting Do not Drive FOLLOW UP/APPOINTMENTS Follow-up Plan PCP & Dr Slade - 1wk Dr Ariel Dawn/ Lee/ Olga -3wks SAUL POWELL MD Mar 27, 2018 13:55
[2018-03-27] MEDS ORDERED: ISOS5TAB2 PO (14:00)
[2018-03-27] MEDS ORDERED: ATOR40TA68 PO (14:00)
[2018-03-27] MEDS ORDERED: NITR0.4T32 SL (14:00)
[2018-03-27] MEDS ORDERED: CHOL100062 PO (14:00)
[2018-03-27] MEDS ORDERED: ASPI-1044 PO (14:00)
[2018-03-27] MEDS ORDERED: LOSA50TA2 PO (14:00)
[2018-03-27] MEDS ORDERED: ACET325T33 PO (14:00)
[2018-03-27] MEDS ORDERED: MTF1000T PO (14:00)
[2018-03-27] MEDS ORDERED: SAN30GM TOP (14:00)
[2018-03-27] MEDS ORDERED: METO-429 PO (14:00)
--- NOTE | 2018-03-27 15:01 | DS ---
Date/Time of Note Date/Time of Note DATE: 03/27/18 TIME: 14:56 Discharge Summary Admission/Discharge Info Admit Date/Time Mar 22, 2018 at 20:41 Discharge Date/Time Patient Condition: Stable Consults [place] [facility] Huang Procedures Chest x-ray: Atherosclerosis essentially clear Foot x-ray 1. Great toe swelling and ulceration. 2. No bone destructive changes are seen. Consider MRI for further evaluation for the detection of early osteomyelitis. 3. No evidence for fracture. 4. Osteoporosis. 5. Atherosclerosis. Arterial ultrasound bilaterally: IMPRESSION: Ankle brachial indices noted above, consistent with moderate arterial disease - refer to a vascular specialist. Monophasic flow seen in the right and left posterior tibial and dorsalis pedis arteries. No focal relative elevation of peak systolic velocity suggestive of hemodynamically significant stenosis seen. Hx of Present Illness 73-year-old female admitted with pain. Hospital Course Evaluated managed for chest pain. Seen by cardiology. Patient has an abnormal stress test and cardiac cath from all of you in the middle of last year. Unfortunately there were issues challenges to obtaining medical therapy and follow-ups. Patient was seen by cardiology and initially by cardiothoracic surgery today. Patient was recommended to have cardiac bypass. She and her daughter are aware and I think they will agree. Patient will be discharged home to follow-up and schedule CABG. Therapy for coronary disease. Stable and fit for discharge. Also seen by vascular for right foot ulcer. Likely ischemic. Arterial ultrasound done. Patient will be seen by vascular as an outpatient for angiogram Assessment and plan 1. Chest pain, ruled out ACS Troponins negative. Stable discharge home on medical therapy 2. Chr cad/multivessel, recommended CABG but refused in the past. Outpatient cardiothoracic surgery follow-up / referral placed 3. Diabetes A1c 8.8 not at goal adjust metformin 4. Hypertension 5. DJD osteoporosis? 6. Peripheral artery disease, angiogram down the line 7. Right first toe ulcer likely ischemic continue local therapy home safety eval arranged 8. Intermittent claudication? 9. Ftt; discharge home with home safety eval Home Meds Active Scripts Nitroglycerin* (Nitroglycerin* SL) 0.4 Mg Tab.subl, 1 TAB SL Q5M PRN for CHEST PAIN for 10 Days, #10 Prov:SAUL POWELL MD 03/27/18 Cholecalciferol* (Vitamin D3*) 1,000 Unit Tablet, 1000 UNIT PO DAILY for 14 Days, #14 TAB 1 Refill Prov:SAUL POWELL MD 03/27/18 Collagenase* (Santyl*) 30 Gm Oint..gm., 1 APPLIC TOP DAILY for 10 Days, #10 Prov:SAUL POWELL MD 03/27/18 Acetaminophen* (Tylenol*) 325 Mg Tablet, 650 MG PO Q6H PRN for PAIN LEVEL 1-3 OR FEVER for 7 Days, TAB Prov:SAUL POWELL MD 03/27/18 Aspirin Delayed Release (Aspirin Delayed Release) 81 Mg Tablet.dr, 81 MG PO DAILY for 30 Days, #30 Prov:SAUL POWELL MD 03/27/18 Metoprolol Tartrate* (Lopressor*) 50 Mg Tab, 50 MG PO BID for 14 Days, #30 TAB Prov:SAUL POWELL MD 03/27/18 Losartan Potassium* (Cozaar*) 50 Mg Tablet, 50 MG PO DAILY for 30 Days, #30 TAB Prov:SAUL POWELL MD 03/27/18 Isosorbide Dinitrate* (Isordil*) 5 Mg Tab, 5 MG PO TID for 10 Days, #30 TAB 1 Refill Prov:SAUL POWELL MD 03/27/18 Atorvastatin* (Atorvastatin*) 40 Mg Tablet, 40 MG PO DAILY@21 for 30 Days, #30 TAB Prov:SAUL POWELL MD 03/27/18 Metformin* (Glucophage*) 1,000 Mg Tablet, 1000 MG PO BID for 10 Days, #20 TAB Prov:SAUL POWELL MD 03/27/18 Reported Medications Gabapentin* (Gabapentin*) 300 Mg Capsule, 300 MG PO DAILY, #60 CAP 03/20/18 Loratadine* (Loratadine*) 10 Mg Tablet, 10 MG PO DAILY, #30 TAB 03/20/18 Buspirone Hcl* (Buspar*) 5 Mg Tab, 5 MG PO BID, TAB 06/25/16 Beclomethasone Dip* (Qvar 80*) 7.3 Gm Inha, 2 PUFF INH BID, INH 04/21/14 Discontinued Reported Medications Naproxen* (Naprosyn*) 500 Mg Tablet, 500 MG PO BID, TAB 03/20/18 Amlodipine Besylate* (Amlodipine Besylate*) 10 Mg Tablet, 10 MG PO DAILY, #30 TAB 03/20/18 Acetaminophen (Mapap) 500 Mg Capsule, 500 MG PO Q4H PRN for PAIN, CAP 06/25/16 Sitagliptin* (Januvia*) 100 Mg Tablet, 100 MG PO DAILY, #30 TAB 06/25/16 Calcium Carbonate-Vitamin D3 (Calcium + D 600 Tablet) 1 Tab Tablet, 1 TAB PO BID, TAB 04/21/14 Ketotifen Fumarate (Alaway) 10 Ml Drops, 1 DROP BID 04/21/14 Discontinued Scripts Metoprolol Tartrate* (Lopressor*) 25 Mg Tab, 25 MG PO BID, #60 TAB Prov:BEE,JERICA V. HYDRAMATIC SPECIALIST 06/22/17 Atorvastatin* (Atorvastatin*) 40 Mg Tablet, 40 MG PO DAILY@21, #30 TAB Prov:BEE,JERICA V. HYDRAMATIC SPECIALIST 06/22/17 Losartan Potassium* (Losartan Potassium*) 100 Mg Tablet, 100 MG PO DAILY, #30 TAB Prov:BEE,JERICA V. HYDRAMATIC SPECIALIST 06/22/17 Aspirin (Aspir-Low) 81 Mg Tablet.dr, 81 MG PO DAILY, #30 TAB Prov:BEE,JERICA V. HYDRAMATIC SPECIALIST 06/22/17 Nitroglycerin* (Nitroglycerin* SL) 0.4 Mg Tab.subl, 1 TAB SL Q5M PRN for ANGINA, #1 BOT Prov:BEE,JERICA V. HYDRAMATIC SPECIALIST 06/22/17 Glipizide* (Glipizide*) 5 Mg Tablet, 5 MG PO AC BREAKFAST, #30 TAB Prov:BEE,JERICA V. HYDRAMATIC SPECIALIST 06/22/17 Hydrocodone/Acetaminophen ([place] 5-325 Tablet) 1 Each Tablet, 1 EACH PO Q6, #14 TAB Prov:IGNACIA GUILLERMO DO 06/25/16 Gabapentin* (Gabapentin*) 100 Mg Capsule, 100 MG PO TID for 30 Days, #90 CAP Prov:Samara Gutiérrez PA-C 04/19/16 Follow-up Plan PCP & Dr Slade - 1wk Dr Ariel Dawn/ Lee/ Olga -3wks Primary Care Provider [facility] Time spent on discharge: > 30 minutes Pending Labs Laboratory Tests Test 03/26/18 17:16 03/26/18 20:39 03/27/18 07:57 03/27/18 11:24 Bedside 196 158 151 280 Glucose mg/dL (70-220) mg/dL (70-220) mg/dL (70-220) mg/dL (70-220) SAUL POWELL MD Mar 27, 2018 15:01
--- NOTE | 2018-03-27 15:28 | CONS ---
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 -Patient did have a coronary angiogram performed at our facility in June 2017 in the setting of mildly elevated troponin. Patient with severe triple vessel obstructive coronary artery disease and recommendations were for coronary artery bypass grafting. -I did speak to the patient with a plush weaver and daughter at bedside. It appears patient did go to [facility] for evaluation but patient was not seen, as per the patient, because of insurance reasons. She never followed up after that and stop all of her medicines at least 6 months ago. I did discuss with the patient importance of medication compliance and medical follow-up. I have requested CT surgery Dr. Gilbert, to once again see the patient -Given negative cardiac enzymes and no symptoms of chest pain, surgical coronary revascularization can be done as an outpatient. Result Diagram: 03/26/18 0814 03/26/18 0814 Results 24hrs Laboratory Tests Test 03/26/18 17:16 03/26/18 20:39 03/27/18 07:57 03/27/18 11:24 Bedside Glucose 196 158 151 280 H Consultation Date/Type/Reason Admit Date/Time Mar 22, 2018 at 20:41 Initial Consult Date 03/22/18 Type of Consult cv Requesting Provider: NICK SALEH DPM 24 HR Interval Summary Free Text/Dictation Feeling better today. Denies chest pain or shortness of breath Exam/Review of Systems Vital Signs Vitals Vital Signs Date Temp Pulse Resp B/P (MAP) Pulse Ox O2 O2 Flow FiO2 Time Delivery Rate 03/27/18 98.0 61 18 119/59 97 15:16 (79) 03/25/18 Room Air 04:41 Intake and Output 03/26/18 03/26/18 03/27/18 1515:00 23:00 07:00 IntakeIntake Total 1500 ml 720 ml BalanceBalance 1500 ml 720 ml Exam No apparent distress, multiple family members at bedside Constitutional: alert, oriented Head: normocephalic Respiratory: clear to auscultation, normal air movement Cardiovascular: regular rate and rhythm, other (S1-S2 heard) Gastrointestinal: soft, non-tender, bowel sounds Extremities: other (No edema) Medications Medications Current Medications Aspirin (Halfprin) 81 mg DAILY PO Last administered on 03/27/18 08:25; Admin Dose 81 MG; Start 03/21/18 at 09:00 Atorvastatin Calcium (Lipitor) 40 mg DAILY@21 PO Last administered on 03/26/18 20:43; Admin Dose 40 MG; Start 03/21/18 at 21:00 Buspirone HCl (Buspar) 5 mg BID PO Last administered on 03/27/18 08:24; Admin Dose 5 MG; Start 03/21/18 at 09:00 Mometasone Furoate (Asmanex) 1 puff Q12H INH Last administered on 03/27/18 08:24; Admin Dose 1 PUFF; Start 03/21/18 at 09:00 IV Flush (NS 3 ml) 3 ml PER PROTOCOL IV ; Start 03/20/18 at 23:00 Ondansetron HCl (Zofran Tab) 4 mg Q6H PRN PO NAUSEA AND/OR VOMITING; Start 03/20/18 at 23:00 Nitroglycerin (Nitroglycerin (Sl Tab) 0.4 Mg) 1 tab Q5M PRN SL CHEST PAIN; Start 03/20/18 at 23:00 Acetaminophen (Tylenol Tab) 650 mg Q6H PRN PO PAIN LEVEL 1-3 OR FEVER Last administered on 03/26/18at 20:43; Admin Dose 650 MG; Start 03/20/18 at 23:00 Docusate Sodium (Colace) 100 mg Q12H PRN PO CONSTIPATION; Start 03/20/18 at 23:00 Bisacodyl (Dulcolax) 5 mg DAILY PRN PO CONSTIPATION; Start 03/20/18 at 23:00 Heparin Sodium (Porcine) (Heparin (5000 Units/1ml)) 5,000 unit Q8 SC Last administered on 03/27/18at 13:20; Admin Dose 5,000 UNIT; Start 03/20/18 at 23:00 Diagnostic Test (Pha) (Accu-Chek) 1 ea 02 XX Last administered on 03/25/18at 02:00; Admin Dose 1 EA; Start 03/22/18 at 02:00 Insulin Aspart (Novolog Insulin Pen) NOVOLOG *MILD* ALGORITHM WITH MEALS BEDTIME SC Last administered on 03/27/18at 11:29; Admin Dose 4 UNIT; Start 03/21/18 at 08:00 Hydralazine HCl (Apresoline) 10 mg Q6H PRN PO ELEVATED BLOOD PRESSURE; Start 03/21/18 at 02:30 Miscellaneous Information 1 ea NOTE XX ; Start 03/21/18 at 02:30 Glucose (Glutose) 15 gm Q15M PRN PO DECREASED GLUCOSE; Start 03/21/18 at 02:30 Glucose (Glutose) 22.5 gm Q15M PRN PO DECREASED GLUCOSE; Start 03/21/18 at 02:30 Dextrose (D50w Syringe) 25 ml Q15M PRN IV DECREASED GLUCOSE; Start 03/21/18 at 02:30 Dextrose (D50w Syringe) 50 ml Q15M PRN IV DECREASED GLUCOSE; Start 03/21/18 at 02:30 Glucagon (Glucagen) 1 mg Q15M PRN IM DECREASED GLUCOSE; Start 03/21/18 at 02:30 Glucose (Glutose) 15 gm Q15M PRN BUCCAL DECREASED GLUCOSE; Start 03/21/18 at 02:30 Gabapentin (Neurontin) 300 mg DAILY PO Last administered on 03/27/18at 08:25; Admin Dose 300 MG; Start 03/21/18 at 09:00 Loratadine (Claritin) 10 mg DAILY PO Last administered on 03/27/18at 08:25; Admin Dose 10 MG; Start 03/21/18 at 09:00 Metoprolol Tartrate (Lopressor) 50 mg BID PO Last administered on 03/27/18at 08:25; Admin Dose 50 MG; Start 03/21/18 at 21:00 Isosorbide Dinitrate (Isordil) 5 mg TID PO Last administered on 03/27/18at 13:1 6; Admin Dose 5 MG; Start 03/21/18 at 13:00 Collagenase (Santyl) 1 applic DAILY TOP Last administered on 03/27/18at 08:26; Admin Dose 1 APPLIC; Start 03/22/18 at 09:00 Cholecalciferol (Vitamin D) 1,000 unit DAILY PO Last administered on 03/27/18at 08:25; Admin Dose 1,000 UNIT; Start 03/24/18 at 09:00 Insulin Aspart (Novolog Insulin Pen) 5 unit AC MEALS SC Last administered on 03/27/18at 11:29; Admin Dose 5 UNIT; Start 03/24/18 at 17:30 Insulin Glargine (Lantus) 10 units DAILY@2000 SC Last administered on 03/26/18at 20:52; Admin Dose 10 UNITS; Start 03/24/18 at 20:00 Losartan Potassium (Cozaar) 50 mg DAILY PO Last administered on 03/27/18at 08:25; Admin Dose 50 MG; Start 03/27/18 at 09:00 Ricardo Diaz DO Mar 27, 2018 15:28
--- NOTE | 2018-03-27 20:19 | CONS ---
DATE OF ADMISSION: 03/22/2018 DATE OF CONSULTATION: REASON FOR CONSULTATION: Evaluation for possible coronary artery bypass grafting. Thank you, Dr. Diaz, for asking me to see this patient. HISTORY OF PRESENT ILLNESS: This is a 73-year-old female admitted back to rule out acute coronary sy ndrome. The patient previously has had a cardiac catheterization which showed obstructed ____ diseas e with diffuse LAD lesion. The patient denied having surgery at that time. Echocardiogram was done which showed ejection fraction about 45% with abnormal diastolic function. PAST MEDICAL HISTORY: Hypertension, hyperlipidemia, diabetes, peripheral vascular disease, history o f non-ST elevation myocardial infarction. PAST SURGICAL HISTORY: None. ALLERGIES: NONE. SOCIAL HISTORY: No smoking, drinking or drug use. MEDICATIONS: List reviewed. PHYSICAL EXAMINATION: VITAL SIGNS: Blood pressure is 110/60, pulse is 80, respirations 18. HEENT: Normocephalic, atraumatic. PERRLA. NECK: Supple. No JVD. No carotid bruits. CARDIOVASCULAR: Normal S1, S2. LUNGS: Clear. ABDOMEN: Soft. EXTREMITIES: Warm. There is ulceration of the left first toe. LABORATORY VALUES: Significant for a white count of 8, hemoglobin 12, platelet count 312. IMPRESSION: 1. Coronary artery disease. The patient is stable at this time. 2. Infection, left great toe. RECOMMENDATIONS: We will follow up with the patient in my office for elective coronary artery bypass grafting after the patient has stabilized and the foot ulceration has improved. Discussed with the patient and the family, we will discuss with the referring physician. Dictated By: MARLYN PATEL MD FM/FRANCISCA Conf#: [id number] DID#: [id number] CC: CARLOS ALBERTO HUNTLEY MD;*EndCC*
--- NOTE | 2018-03-27 21:46 | RADRPT ---
Vent Rate: 66 bpm RR Interval: 0 msec CA Interval: 170 msec QRS Duration: 90 msec QT Interval: 386 msec QTC Interval: 404 msec P-R-T Chandler: 49 - 0 - -9 degrees Normal sinus rhythm Anterior infarct , age undetermined Abnormal ECG Electronically Signed By: Ricardo Diaz [id number]
== END 2018-03-27 20:15 | disposition home health service (06) | DRG 301 ==
LOC: E/R 18:49 → 6WM 22:56 → OBSVTOIN 03-22 20:41
PROVIDERS: ADMIT Family Medicine; ATTEND Internal Medicine
DX: I70.235 Atherosclerosis of native arteries of right leg with ulceration of other part of foot (principal); I25.118 Atherosclerotic heart disease of native coronary artery with other forms of angina pectoris; I70.212 Atherosclerosis of native arteries of extremities with intermittent claudication, left leg; E11.42 Type 2 diabetes mellitus with diabetic polyneuropathy; F41.9 Anxiety disorder, unspecified; I10 Essential (primary) hypertension; E78.5 Hyperlipidemia, unspecified; J30.2 Other seasonal allergic rhinitis; I25.5 Ischemic cardiomyopathy; E11.621 Type 2 diabetes mellitus with foot ulcer; I25.2 Old myocardial infarction; R62.7 Adult failure to thrive; Z68.22 Body mass index [BMI] 22.0-22.9, adult; E11.51 Type 2 diabetes mellitus with diabetic peripheral angiopathy without gangrene; L97.519 Non-pressure chronic ulcer of other part of right foot with unspecified severity
CPT/HCPCS: 36415; 71045; 73630; 80048; 80053; 80061; 82306; 82550; 82553; 82652; 82728; 82962; 83036; 83540; 83735; 84100; 84443; 84484; 85025; 85610; 85730; 90686; 93005; 93306; 93923; G0378; J1644; J1815

== ENCOUNTER 2018-05-19 09:38 | Day surgery (SDC) | payer BC ==
[~2018-05-19] VITALS: Ht 139.7 cm; Wt 50.5 kg
[2018-05-19] VITALS (19 sets, daily range): BP systolic 114–157; BP diastolic 57–110; PULSE 74–106; RESP 13–21; Ht 139.7 cm; Wt 50.5 kg
[~2018-05-19 09:38] MED LIST changes: +ACET325T33 PO; -ACET500C3 PO; +ASPI-1044 PO; -ASPI81TA50 PO; -CALC1TAB98 PO; +CHOL100062 PO; -GABA100C14 PO; +GABA300C16 PO; -GLIP5TAB13 PO; -HYDR-4011 PO; +ISOS5TAB2 PO; -KETO10DR5; +LORA10TA3 PO; -LOSA100T15 PO; +LOSA50TA2 PO; +METO-429 PO; -METO-448 PO; +SAN30GM TOP; -SITA100T11 PO
[2018-05-19] MEDS ORDERED: ISOS5TAB2 PO (10:26)
[2018-05-19] MEDS ORDERED: METO25TA4 PO (10:27)
[2018-05-19] MEDS ORDERED: ASPI-817 PO (10:28)
[2018-05-19] MEDS ORDERED: GLIP-160 PO (10:28)
[2018-05-19] MEDS ORDERED: ATOR40TA68 PO (10:29)
[2018-05-19] MEDS ORDERED: CHOL100062 PO (10:30)
[2018-05-19] MEDS ORDERED: MTF1000T PO (10:31)
[2018-05-19] MEDS ORDERED: IODIXANOL LOCM 100 ML BTL ONE (12:22)
[2018-05-19] MEDS ORDERED: MIDAZOLAM 1 MG/ML 2 ML INJ ONE (12:22)
[2018-05-19] MEDS ORDERED: HEPARIN 1000 UNITS/ML 10 ML INJ ONE (12:22)
[2018-05-19] MEDS ORDERED: FENTAnyl 50 MCG/ML VIAL ONE (12:23)
[2018-05-19] MEDS ORDERED: CLOPIDOGREL 300 MG TAB ONE (15:26)
[2018-05-19] MEDS ORDERED: SOD CHLORIDE 0.9% 1,000 ML IV SCH (15:55)
--- NOTE | 2018-05-19 15:55 | SIPON ---
Date/Time of Note Date/Time of Note DATE: 05/19/18 TIME: 15:54 Operative Report Preoperative Diagnosis RLE rest pain and ulcer Postoperative Diagnosis Same Operation/Procedure Performed Aortogram, BLE angiograms, angioplasty to right distal popliteal severe stenosis and entire CALVIN occlusions Surgeon see signature line sourcing assistant N/A Anesthesia: moderate sedation Estimated blood loss: minimal Transfusion Required none Specimen n/a Grafts/Implants none Complications none CÉSAR MORILLO MD May 19, 2018 15:55
[2018-05-19] MEDS ORDERED: ONDANSETRON 4 MG INJ IV PRN (16:00)
[2018-05-19] MEDS ORDERED: oxyCODONE 5 MG TAB PO ONE (17:30)
[2018-05-19] MEDS ORDERED: FENTAnyl 50 MCG/ML VIAL IV PRN (17:30)
[2018-05-19] MEDS ORDERED: IBUPROFEN 400 MG TAB PO ONE (20:00)
[2018-05-19] MEDS ORDERED: ACETAMINOPHEN 325 MG TAB PO ONE (20:00)
--- NOTE | 2018-05-20 08:24 | OPR ---
DATE OF OPERATION: 05/19/2018 PREOPERATIVE DIAGNOSES: Right lower extremity rest pain and ulcer. POSTOPERATIVE DIAGNOSES: Right lower extremity rest pain and ulcer. PROCEDURES PERFORMED: 1. Aortogram. 2. Bilateral lower extremity angiogram. 3. Angioplasty of right distal popliteal artery and the entire anterior tibial artery, severe lesions/occlusions. ANESTHESIA: Moderate sedation and local. ESTIMATED BLOOD LOSS: Minimal. SPECIMENS: None. COMPLICATIONS: None. ANGIOGRAPHIC FINDINGS: 1. Patent infrarenal aorta, bilateral common iliac, internal iliac and external iliac arteries. There was noted to be significantly sluggish flow throughout the entire system. 2. Patent left common femoral, proximal superficial femoral and profunda femoral arteries. 3. Patent right common femoral, superficial femoral and profunda femoral arteries. 4. Patent right popliteal artery with distal arteries insignificant stenosis. 5. Patent proximal anterior tibial artery with severe lesions and the anterior tibial artery is occluded with segmental significant lesions and occlusions in the mid and distal aspects. The very distal anterior tibial artery reconstitutes and continuos in the foot at the very small dorsalis pedis and lateral tarsal branch. 6. The peroneal artery is occluded with diffuse lesions throughout. The posterior tibial artery is completely occluded. 7. There was anabaptism of inline flow via the anterior tibial artery post- intervention. The patient had a palpable pulse at the DP. PREOPERATIVE INDICATIONS: This is a 73-year-old female with a severe peripheral vascular disease who presented with a right first toe ulceration along with severe rest pain. She now presents for angiogram with possible intervention. The indications, risks and benefits of the procedure were discussed with the patient's family, who understood and agreed to proceed. DESCRIPTION OF PROCEDURE: The patient was properly identified, brought to the angiography suite, placed in supine position. The patient's bilateral groins were prepped and draped in usual sterile fashion. The patient's left common femoral artery was evaluated with ultrasound, which was noted to be widely patent; however, with moderate calcifications. Local anesthesia was injected into the skin and subcutaneous tissues. A micropuncture needle was used to access the artery under direct ultrasound guidance. A micropuncture wire was then advanced under fluoroscopy. A micropuncture sheath was placed. A 0.035 floppy Glidewire was then advanced and a 5-Spanish sheath was placed. A flush catheter was then advanced into the infrarenal aorta for aortogram, which was performed with the findings as above. Using the flush catheter along with the floppy wire the right iliac system was selected and the catheter was advanced into the right external iliac artery and right lower extremity angiogram was performed with findings as above. Given the findings, the stiff Glidewire was advanced into the superficial femoral artery and the catheter and sheath were exchanged for a 6-Spanish by 70 cm long sheath. The patient was heparinized with intravenous heparin and was redosed accordingly. Using the aid of an angled Berenstein catheter and the floppy Glidewire, the right anterior tibial artery was selected beyond the stenosis of the distal popliteal artery. Once within the artery the wire was exchanged for 0.014 Command wire and the catheter was exchanged for 0.014 [place] catheter. Using this combination, the diffuse stenotic lesions and the segmental occlusions were all crossed with the wire in the distal anterior tibial artery/proximal dorsalis pedis. Angiography confirmed this. Initial attempts to cross the lesions with a 2 mm balloon were unsuccessful despite predilation. A 1.5 mm balloon was then advanced. However, would not cross beyond the mid to distal anterior tibial occlusions. Therefore, after further attempt, a jose david system was created using a 0.035 floppy Glidewire with [address] A 05/13/2018 Quick-Cross was advanced over the floppy wire and used to select the anterior tibial artery and cross the same occluded lesions. Eventually all the occlusions were crossed and a 0.0305 Spartacore stiff wire was exchanged for the floppy wire. This was done given the fact that advancement of a 3 mm balloon over the floppy wire would not advance as well. The stiff wire added more support and a 3 x 60 mm wire was able to cross the lesions from proximal to distal with sequential sustained insufflations. Eventually, all the lesions were angioplastied. Of note, 0.030 catheter placement was confirmed to be in the true lumen of the distal anterior tibial artery on angiography prior to intervening with angioplasty. Angiogram after the angioplasty demonstrated that there were still some persistent stenotic areas along the mid and proximal areas of the anterior tibial artery along with the distal popliteal lesion. Therefore, a 3 x 200 mm balloon was advanced and used for angioplasty of the entire area. Completion angiogram demonstrated marked improvement in luminal diameter and flow and anabaptism of inline flow to the foot via the anterior tibial artery into the dorsalis pedis. Given these findings, the procedure was terminated here. Given the stiff wire was changing the anatomy of the anterior tibial artery takeoff, a Berenstein catheter was placed over this area, and the wire was retracted to the floppy portion of the tip before it was removed beyond this angulated take off. Eventually the 6- Spanish sheath was then walked back into the left iliac system over the wire. The wire was then readvanced into the infrarenal aorta. Left lower extremity angiogram was then performed with findings as above. This demonstrated that the access site was amenable to a closure device. Therefore, the sheath was exchanged for an Angio-Seal closure device, which was then deployed and this provided good hemostasis. Additional manual compression was applied for additional hemostasis. The patient had a palpable dorsalis pedis at the conclusion of the procedure. She tolerated the procedure well and was transferred to recovery in good condition. Dictated By: CÉSAR PEACE/FRANCISCA Conf#: [id number] DID#: [id number] CC: CÉSAR Schroeder;*EndCC* MTDD
== END 2018-05-19 20:41 | disposition home or self-care (01) ==
LOC: SDS 09:38
PROVIDERS: ATTEND Surgery
DX: I73.9 Peripheral vascular disease, unspecified (principal); L97.519 Non-pressure chronic ulcer of other part of right foot with unspecified severity
CPT/HCPCS: 37224; 75630; 75716; 80053; 82962; 85025; 85610; 85730; C1725; C1760; C1769; C1887; C1894; J1644; J2250; J2405; J3010; Q9967; Z7610